=== PATIENT | male | born 1980 | race Caucasian/White ===

== ENCOUNTER 2020-11-03 09:15 | Outpatient (REF) | payer BC, SELFPAY | END 2020-11-03 09:16 | disposition home or self-care (01) | LOC: HO.LAB 09:15 | PROVIDERS: PCP Internal Medicine; Visit Provider Internal Medicine Pulmonary Disease | DX: T78.40XA Allergy, unspecified, initial encounter (principal); J47.9 Bronchiectasis, uncomplicated; R76.8 Other specified abnormal immunological findings in serum; Z87.891 Personal history of nicotine dependence | CPT/HCPCS: 82785; 86003 ==

== ENCOUNTER 2021-01-12 08:08 | Outpatient (REF) | payer BC, SELFPAY | END 2021-01-12 08:09 | disposition home or self-care (01) | LOC: HO.MDS 08:08 | PROVIDERS: PCP Internal Medicine; Visit Provider Internal Medicine Pulmonary Disease | DX: J45.901 Unspecified asthma with (acute) exacerbation (principal) | CPT/HCPCS: 96372; J2357 ==

== ENCOUNTER 2021-01-22 09:25 | Outpatient (REF) | payer BC, SELFPAY ==
--- NOTE | ~2021-01-22 | XR_ITS ---
EXAMINATION: XR CHEST CLINICAL INFORMATION: Pleurodynia COMPARISON: 08/12/2020 TECHNIQUE: 2 views of the chest were obtained. FINDINGS: Superimposed on chronic interstitial opacity, there is new more confluent airspace opacity in the left midlung and left lung base suspicious for acute disease. Nodular opacity in the right midlung was present previously. No pleural effusion or pneumothorax. Normal heart size. Regional skeleton intact. XR/XR chest 2V IMPRESSION: Superimposed on a background of chronic coarse interstitial opacity, there is new, more confluent airspace opacity in the left midlung and left lung base suspicious for acute disease.
[2021-01-22 10:46] LABS: MANUAL DIFF FLAG NO
[2021-01-22 10:58] LABS: Basophils Absolute Auto 0.1 X10*3/uL (0.0-0.2); Basophils Percent Auto 0.7 % (0-2); Eosinophils Absolute Auto 0.2 X10*3/uL (0.0-0.4); Eosinophils Percent Auto 0.9 % (0-4); Hematocrit 45.1 % (42-52); Hemoglobin 14.6 g/dl (14.0-18.0); Imm Gran Abs Auto 0.15 X10*3/uL (0.00-0.03); Imm Gran Pct Auto 0.8 % (0.0-0.4); Lymphocytes Absolute Auto 2.7 X10*3/uL (1.2-4.9); Lymphocytes Percent Auto 14.1 % (20-40); Mean Corpuscular HGB Conc 32.4 g/dl (31.0-36.0); Mean Corpuscular Hemoglobin 28.8 pg (27.0-33.0); Mean Platelet Volume 10.6 fL (9.4-12.4); Monocytes Absolute Auto 1.4 X10*3/uL (0.1-1.2); Monocytes Percent Auto 7.5 % (2-11); Neutrophils Absolute Auto 14.4 X10*3/uL (2.0-8.3); Platelet Count 370 X10*3/uL (160-400); Red Blood Count 5.07 X10*6/uL (4.60-5.80); Red Cell Distribution Width 15.6 % (11.0-16.0); White Blood Count 18.9 X10*3/uL (4.8-10.8)
[2021-01-22 11:23] LABS: Anion Gap 15 (12-20); Blood Urea Nitrogen 16 mg/dL (9-16); Calcium 9.7 mg/dL (8.4-10.2); Carbon Dioxide 28 mmol/L (22-29); Chloride 102 mmol/L (96-108); Estimated Glomerular Filt Rate > 60; Glucose Random 86 mg/dL (60-115); Potassium 4.8 mmol/L (3.3-5.1); Sodium 140 mmol/L (135-145)
[2021-01-22 11:39] LABS: SARS COV2 IgG Negative (Negative)
[2021-01-22 11:48] LABS: Erythrocyte Sedimentation Rate 34 MM/HR (0-15)
[2021-01-23 23:46] LABS: Immunoglobulin G Subclass 1 974 mg/dL (382-929); Immunoglobulin G Subclass 2 340 mg/dL (241-700); Immunoglobulin G Subclass 3 14 mg/dL (22-178); Immunoglobulin G Subclass 4 72.5 mg/dL (4-86); Immunoglobulin G Total 1692 mg/dL (600-1640)
== END 2021-01-22 09:26 | disposition home or self-care (01) ==
LOC: HO.LAB 09:25
PROVIDERS: PCP Internal Medicine; Visit Provider Hospitalist
DX: J47.0 Bronchiectasis with acute lower respiratory infection (principal); R76.8 Other specified abnormal immunological findings in serum; R07.81 Pleurodynia; Z20.822 Contact with and (suspected) exposure to COVID-19; Z88.8 Allergy status to other drugs, medicaments and biological substances; Z79.899 Other long term (current) drug therapy
CPT/HCPCS: 36415; 71046; 80048; 82784; 85025; 85652; 86769

== ENCOUNTER 2021-01-26 07:26 | Outpatient (REF) | payer BC, SELFPAY | END 2021-01-26 07:27 | disposition home or self-care (01) | LOC: HO.MDS 07:26 | PROVIDERS: PCP Internal Medicine; Visit Provider Internal Medicine Pulmonary Disease | DX: J45.901 Unspecified asthma with (acute) exacerbation (principal) | CPT/HCPCS: 96372; J2357 ==

== ENCOUNTER → 2021-02-02 08:46 | Outpatient (BNVA) | payer BC, SELFPAY | PROVIDERS: PCP Internal Medicine; Visit Provider Internal Medicine Pulmonary Disease ==

== ENCOUNTER 2021-06-02 15:22 | Emergency (ER) | payer MEDICARE, MEDICAID, SELFPAY ==
--- NOTE | ~2021-06-02 | XR_ITS ---
EXAMINATION: XR CHEST CLINICAL INFORMATION: Cough and shortness of breath. Bronchiectasis. Rule out pneumo COMPARISON: Chest x-ray January 22, 2021 TECHNIQUE: 2 views of the chest were obtained. FINDINGS: Cardiac silhouette is normal in size. New patchy airspace disease is present within the lateral right upper lung and medial left mid lung. This is superimposed on a background of chronic interstitial opacities. There is no pleural effusion or pneumothorax. No acute osseous abnormality. XR/XR chest 2V IMPRESSION: Suspected acute patchy airspace disease superimposed on chronic changes.
--- NOTE | ~2021-06-02 | CT_ITS ---
EXAMINATION: CT HEAD WITHOUT CONTRAST CLINICAL INFORMATION: Head injury. History of traumatic brain injury. Rule out fracture and bleed. COMPARISON: None TECHNIQUE: Contiguous axial imaging was performed from the skull base to vertex without intravenous administration of contrast. This CT examination was performed using dose optimization techniques as appropriate, variously including the following: *Automated exposure control *Adjustment of mA and/or kV according to patient size (this includes techniques or standardized protocols for targeted exams where dose is matched to indication/reason for exam; i.e. extremities or head) *Use of iterative reconstruction technique DLP: 833 mGy-cm FINDINGS: There is no evidence of acute intracranial hemorrhage or territorial infarction. No abnormal mass effect or midline shift is seen. [place] to white matter differentiation is well preserved. No extra-axial fluid collections are identified. The ventricles are normal in size. There is no abnormal attenuation within the brain parenchyma. No acute osseous fracture. Near-complete opacification of the left sphenoid sinus with only partial opacification of the left frontal sinus. Other visualized paranasal sinuses are well aerated. CT/CT head/brain wo con IMPRESSION: 1. No acute intracranial pathology. 2. Mild sinus disease.
[2021-06-02 15:26] VITALS: BP 155/99; PULSE 137; RESP 18; TEMP 36.7; O2SAT 91; BMI 25.5
--- NOTE | 2021-06-02 15:57 | PC.NURSE ---
patient refusing covid swab at this time
[2021-06-02 15:59] LABS: MANUAL DIFF FLAG NO
[2021-06-02 16:01] LABS: Basophils Absolute Auto 0.1 X10*3/uL (0.0-0.2); Basophils Percent Auto 0.6 % (0-2); Eosinophils Absolute Auto 0.1 X10*3/uL (0.0-0.4); Eosinophils Percent Auto 0.9 % (0-4); Hematocrit 42.3 % (42-52); Imm Gran Abs Auto 0.09 X10*3/uL (0.00-0.03); Imm Gran Pct Auto 0.6 % (0.0-0.4); Lymphocytes Absolute Auto 3.7 X10*3/uL (1.2-4.9); Lymphocytes Percent Auto 23.9 % (20-40); Mean Corpuscular HGB Conc 33.1 g/dl (31.0-36.0); Mean Corpuscular Hemoglobin 30.2 pg (27.0-33.0); Mean Corpuscular Volume 91.2 fL (80-98); Mean Platelet Volume 9.8 fL (9.4-12.4); Monocytes Absolute Auto 1.4 X10*3/uL (0.1-1.2); Monocytes Percent Auto 9.1 % (2-11); Neutrophils Absolute Auto 10.2 X10*3/uL (2.0-8.3); Neutrophils Percent Auto 64.9 % (45-73); Platelet Count 239 X10*3/uL (160-400); Red Blood Count 4.64 X10*6/uL (4.60-5.80); Red Cell Distribution Width 18.2 % (11.0-16.0); White Blood Count 15.7 X10*3/uL (4.8-10.8)
--- NOTE | 2021-06-02 16:14 | ECG_ITS ---
Test Reason : SHORT OF BREATH Blood Pressure : / mmHG Vent. Rate : 118 BPM Atrial Rate : 118 BPM P-R Int : 130 ms QRS Dur : 080 ms QT Int : 310 ms P-R-T Axes : 066 076 040 degrees QTc Int : 434 ms Sinus tachycardia Otherwise normal ECG When compared with ECG of 27-JUN-2020 20:34, No significant change was found Referred By: Minh Leggett Electronically Signed By:KASI ROE MD
[2021-06-02] MEDS: 0.9 % Sodium Chloride 1,000 ML 999 ML IV (16:21)
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
[2021-06-02 16:28] LABS: Anion Gap 16 (12-20); Blood Urea Nitrogen 12 mg/dL (9-16); Calcium 8.3 mg/dL (8.4-10.2); Carbon Dioxide 25 mmol/L (22-29); Chloride 106 mmol/L (96-108); Creatinine Clr Calc Pharmacy 104.3; Estimated Glomerular Filt Rate > 60; Ethanol 432 mg/dL; Glucose Random 116 mg/dL (60-115); Potassium 3.9 mmol/L (3.3-5.1); Sodium 143 mmol/L (135-145)
[2021-06-02 16:35] VITALS: BP 158/102; PULSE 121; RESP 24; TEMP 36.9; O2SAT 92
[2021-06-02 16:37] LABS: Alanine Aminotransferase 60 U/L (0-40); Albumin Level 3.4 g/dL (3.5-5.0); Alkaline Phosphatase 150 U/L (39-117); Aspartate Amino Transferase 72 U/L (5-37); Bilirubin Direct < 0.2 mg/dL (0.0-0.5); Bilirubin Total 0.3 mg/dL (0.0-1.0); Total Protein 7.8 g/dL (6.5-8.0); Troponin-I High Sensitivity < 3.5 ng/L (<3.5-35.0)
[2021-06-02 16:38] VITALS: O2SAT 92
[2021-06-02] MEDS: levoFLOXacin/D5W 750 MG/150 ML PIGGYBACK 100 MG IV (17:06)
[2021-06-02] MEDS: Azithromycin 500 MG TABLET PO (17:40)
[2021-06-02] MEDS: predniSONE 20 MG TABLET 60 MG PO (17:40)
[2021-06-02 17:43] LABS: B Type Natriuretic Peptide < 10 pg/mL (<100)
[2021-06-02 17:54] LABS: Prothrombin Time 11.7 SEC (9.9-13.0)
[2021-06-02 17:56] LABS: Partial Thromboplastin Time 44.3 SEC (24.1-38.0)
== END 2021-06-02 18:18 | disposition home or self-care (01) ==
PROVIDERS: Emergency Provider Emergency Medicine Emergency Medical Services
DX: J18.9 Pneumonia, unspecified organism (principal); F10.120 Alcohol abuse with intoxication, uncomplicated; Y90.8 Blood alcohol level of 240 mg/100 ml or more; S09.90XA Unspecified injury of head, initial encounter; I10 Essential (primary) hypertension; F17.210 Nicotine dependence, cigarettes, uncomplicated; W18.30XA Fall on same level, unspecified, initial encounter; Y93.9 Activity, unspecified; Y92.9 Unspecified place or not applicable; Y99.9 Unspecified external cause status
CPT/HCPCS: 36415; 70450; 71046; 80048; 80076; 82077; 83605; 83880; 84484; 85025; 85610; 85730; 87040; 93005; 96361; 96365; 99284; J1956

== ENCOUNTER 2021-06-12 16:30 | Inpatient (IN) | payer MEDICARE, MEDICAID, SELFPAY ==
[2021-06-12] VITALS (10 sets, daily range): BP systolic 122–138; BP diastolic 76–88; PULSE 131–152; RESP 22–26; TEMP 36.7–37.2; O2SAT 87–94; BMI 25.8
--- NOTE | ~2021-06-12 | XR_ITS ---
EXAMINATION: XR CHEST CLINICAL INFORMATION: Post intubation COMPARISON: 06/12/2021 TECHNIQUE: Frontal view of the chest was obtained. FINDINGS: Endotracheal tube tip lies approximately 5.5 cm above the alvarez. Lung volumes are symmetric. There is redemonstration of diffuse bronchiectasis and a few scattered patchy superimposed consolidations, similar to prior. No evidence of pneumothorax or pleural effusion. The cardiomediastinal contour is unremarkable. No acute osseous findings are seen. XR/XR chest 1V IMPRESSION: Endotracheal tube tip 5.5 cm above the alvarez. Redemonstration of diffuse bronchiectasis and a few scattered patchy superimposed consolidations, similar to prior.
--- NOTE | ~2021-06-12 | XR_ITS ---
EXAMINATION: XR CHEST CLINICAL INFORMATION: ET tube placement COMPARISON: Chest 06/13/2021 TECHNIQUE: Frontal view of the chest was obtained. FINDINGS: The endotracheal tube is 4.7 cm above the alvarez. Both lungs are well-expanded with diffuse patchy reticular interstitial changes likely consolidation. There is mild bronchiectasis seen bilaterally. No pneumothorax or pleural effusion suspected. The cardiomediastinal silhouette is within normal limits. New enteric tube is below diaphragm XR/XR chest 1V IMPRESSION: New enteric tube is below the diaphragm. No change in endotracheal tube, scattered bronchiectasis in both lungs and scattered patchy reticular and parenchymal opacities throughout both lungs.
--- NOTE | ~2021-06-12 | XR_ITS ---
EXAMINATION: XR CHEST CLINICAL INFORMATION: Aspiration pneumonia. COMPARISON: None TECHNIQUE: Frontal view of the chest was obtained. FINDINGS: The lungs are well-expanded with increased bilateral upper mid and lower lobe patchy opacities with peribronchial wall thickening and bronchiectasis suggestive of bronchitis or bronchial airway disease. There are patchy opacities in the right upper lobe and left upper lobe suprahilar regions likely infiltrates. There is no pleural effusion. The heart size and hypervascularity is normal. No gross bony abnormality.. XR/XR chest 1V IMPRESSION: Findings suggestive of bronchiectasis and bronchial airway disease, slowly improved since 06/02/2021 exam. There is residual patchy opacities in the right upper lung and left upper lobe suprahilar region. There is no pleural effusion.
--- NOTE | ~2021-06-12 | XR_ITS ---
EXAMINATION: XR CHEST CLINICAL INFORMATION: Hypoxia COMPARISON: None TECHNIQUE: Frontal view of the chest was obtained. FINDINGS: The lungs are well-expanded with patchy reticular interstitial opacities in both lungs similar to previous studies 06/13/2021. There is mild bronchiectasis and cystic changes as well. The endotracheal tube and enteric tube have been removed. The heart size and pulmonary vascularity is normal. No gross bony abnormality seen. XR/XR chest 1V IMPRESSION: Endotracheal tube and enteric tube have been removed. Patchy reticular interstitial opacities in both lungs are stable.
--- NOTE | ~2021-06-12 | XR_ITS ---
EXAMINATION: XR CHEST, 2 VIEWS CLINICAL INFORMATION: Chest pain. Rule out pneumonia. COMPARISON: 06/02/2021 TECHNIQUE: PA and lateral views of the chest were obtained. FINDINGS: Patchy multifocal airspace consolidation is again seen in both lungs, most notably in the perihilar regions, superimposed upon a background of bronchiectasis. Airspace opacities are not appreciably changed as compared to prior. No new airspace disease. No pneumothorax or pleural effusion. Cardiac and mediastinal contours are unchanged. XR/XR chest 2V IMPRESSION: Chronic bilateral bronchiectasis and coarsened lung markings. Superimposed airspace opacities are not significantly changed from the prior study.
--- NOTE | ~2021-06-12 | CT_ITS ---
EXAMINATION: CT ANGIOGRAM OF THE CHEST WITH AND WITHOUT CONTRAST (CT PULMONARY ANGIOGRAM FOR PE) CLINICAL INFORMATION: Reason for Exam tachycardia, hypoxia, elevated d-dimer, to eval for PE COMPARISON: 06/30/2020 TECHNIQUE: Prior to contrast administration, noncontrast localization images were obtained. Subsequently, multidetector volumetric imaging was performed from the thoracic inlet to below the diaphragms following the administration of 80 mL Omnipaque 350 intravenous contrast. No contrast reaction reported Sagittal, coronal, and MIP oblique sagittal reformatted images were obtained on the CT workstation, uploaded to PACS, and reviewed. This CT examination was performed using dose optimization techniques as appropriate, variously including the following: *Automated exposure control *Adjustment of mA and/or kV according to patient size (this includes techniques or standardized protocols for targeted exams where dose is matched to indication/reason for exam; i.e. extremities or head) *Use of iterative reconstruction technique Total exam dose-length product 229 mGy-cm FINDINGS: QUALITY OF STUDY/CONTRAST BOLUS: Satisfactory. PULMONARY ARTERIES: No central or segmental pulmonary emboli. THORACIC AORTA: No aneurysm or dissection. LUNG: Severe diffuse cylindrical bronchiectasis diffusely bilaterally. Overall the extent of parenchymal disease is progressive. Masslike irregular parenchymal disease also progressive minimal focal irregular abnormality superior segment of the left lower lobe. No definite cavitation or calcifications. PLEURA: No pleural effusion or pneumothorax. MEDIASTINUM: Normal heart size. No pericardial effusion. Mild progression of bulky lymph nodes largest anterior mediastinum measuring up to 3.5 x 1.1 cm transaxially. Bilateral hilar adenopathy similar mildly progressive. Bulky lymph node azygos esophageal recess is slightly progressive. This now measures up to 2 x 1.6 cm. No evidence of septal bowing or right heart strain. Thoracic aorta normal. CHEST WALL/AXILLA: No axillary or internal mammary lymphadenopathy. OSSEOUS STRUCTURES: No acute or suspicious osseous abnormality. UPPER ABDOMEN: Unremarkable. No reflux of contrast into the hepatic veins to suggest elevated right heart pressures. CT/CT angio chest PE protocol IMPRESSION: 1. No evidence for any acute or chronic pulmonary embolism. 2. Overall progression of bronchial and parenchymal disease. Progression of diffuse pathologic lymphadenopathy. Differential diagnosis includes infectious or inflammatory processes including atypical infection such as allergic bronchopulmonary aspergillosis. Correlate clinically with any history of cystic fibrosis. Differential diagnosis also includes potentially lymphoma and granulomatous disease. VTE: negative
--- NOTE | 2021-06-12 18:00 | ECG_ITS ---
Test Reason : SOB Blood Pressure : / mmHG Vent. Rate : 139 BPM Atrial Rate : 139 BPM P-R Int : 118 ms QRS Dur : 070 ms QT Int : 292 ms P-R-T Axes : 070 083 064 degrees QTc Int : 444 ms Sinus tachycardia Otherwise normal ECG When compared with ECG of 02-JUN-2021 16:43, No significant change was found Referred By: Minh Leggett Electronically Signed By:Dylon Looney
[2021-06-12] MEDS: LORazepam 2 MG/ML VIAL IVPUSH (18:16)
[2021-06-12] MEDS: 0.9 % Sodium Chloride 1,000 ML 999 ML IV ×2 (18:17→20:00)
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
[2021-06-12 18:29] LABS: MANUAL DIFF FLAG NO
[2021-06-12 18:47] LABS: Basophils Absolute Auto 0.1 X10*3/uL (0.0-0.2); Basophils Percent Auto 0.7 % (0-2); Eosinophils Absolute Auto 0.1 X10*3/uL (0.0-0.4); Eosinophils Percent Auto 0.5 % (0-4); Hematocrit 41.1 % (42-52); Hemoglobin 13.5 g/dl (14.0-18.0); Imm Gran Abs Auto 0.14 X10*3/uL (0.00-0.03); Imm Gran Pct Auto 0.9 % (0.0-0.4); Lymphocytes Absolute Auto 1.8 X10*3/uL (1.2-4.9); Lymphocytes Percent Auto 11.8 % (20-40); Mean Corpuscular HGB Conc 32.8 g/dl (31.0-36.0); Mean Corpuscular Hemoglobin 30.1 pg (27.0-33.0); Mean Corpuscular Volume 91.5 fL (80-98); Mean Platelet Volume 10.3 fL (9.4-12.4); Monocytes Absolute Auto 1.3 X10*3/uL (0.1-1.2); Monocytes Percent Auto 8.6 % (2-11); Neutrophils Absolute Auto 11.8 X10*3/uL (2.0-8.3); Neutrophils Percent Auto 77.5 % (45-73); Platelet Count 187 X10*3/uL (160-400); Red Blood Count 4.49 X10*6/uL (4.60-5.80); Red Cell Distribution Width 19.1 % (11.0-16.0); White Blood Count 15.2 X10*3/uL (4.8-10.8)
[2021-06-12 18:58] LABS: Ethanol 248 mg/dL
[2021-06-12 18:59] LABS: Alanine Aminotransferase 64 U/L (0-40); Albumin Level 3.7 g/dL (3.5-5.0); Alkaline Phosphatase 128 U/L (39-117); Anion Gap 19 (12-20); Aspartate Amino Transferase 89 U/L (5-37); Bilirubin Total 0.4 mg/dL (0.0-1.0); Blood Urea Nitrogen 17 mg/dL (9-16); Calcium 8.4 mg/dL (8.4-10.2); Carbon Dioxide 26 mmol/L (22-29); Chloride 101 mmol/L (96-108); Creatinine Clr Calc Pharmacy 111.7; Estimated Glomerular Filt Rate > 60; Glucose Random 113 mg/dL (60-115); Lipase 55 U/L (8-78); Potassium 3.8 mmol/L (3.3-5.1); Sodium 142 mmol/L (135-145); Total Protein 7.7 g/dL (6.5-8.0)
[2021-06-12] MEDS: Albuterol Sulfate 90 MCG 8 GM INHALER 6 PUFF INHALE (18:59)
[2021-06-12 19:20] LABS: COVID-19 Test Negative (Negative); IDNOW Serial# 9DD0AD1C
[2021-06-12] MEDS: Albuterol/Iprat 2.5/0.5MG 3 ML AMPUL.NEB INHALE (19:37)
[2021-06-12] MEDS: PHENobarbitaL sodium 130 MG/ML VIAL 410 MG IM (20:07)
--- NOTE | 2021-06-12 20:23 | PHA.MEDREC ---
Pharmacy Consult ? Medication Reconciliation Pharmacy has completed the medication reconciliation. PT no longer on xolair or breo/not covered by ins
--- NOTE | 2021-06-12 20:59 | PC.NURSE ---
pt heart rate still in 140's, pt also keeps desatting to 85% on 3L NC. pt remains asymptomatic and not complaining of feeling short of breath hospitalist notified
--- NOTE | 2021-06-12 21:03 | PC.NURSE ---
pt 02 NC increased to 4L pt 02 sat now 94% on 4L NC
--- NOTE | 2021-06-12 21:28 | MHC.RECOVSUP ---
Recovery Support o Current location: 15 o Identified substance use concern: Alcohol <del>-</del> <del>Overdose</del> - Withdrawal - Seeking ATS (detox) - Support ? Intervention: <del>o</del> <del>ATS</del> <del>bed</del> <del>search</del> <del>started/completed/in</del> <del>process</del> <del>o</del> <del>MAT</del> <del>started</del> <del>or</del> <del>to</del> <del>be</del> <del>started</del> o Community resources provided o Harm reduction discussion ? Plan: o Referral to [facility] <del>o</del> <del>Bed</del> <del>search</del> <del>in</del> <del>progress</del> <del>to</del> o Follow up tomorrow <del>o</del> <del>Patient</del> <del>awaiting</del> <del>crisis</del> <del>evaluation</del> <del>o</del> <del>Patient</del> <del>to</del> <del>follow</del> <del>up</del> <del>with</del> <del>HF</del> <del>after</del> <del>discharge</del> ? Additional information: I was able to briefly speak with pt and he was interested in going to detox but he is being admitted. I was able to provide him with some resources and also spoke to him about Vivitrol and [facility]. he should interest in it and I suggested and encouraged him to speak with someone tomorrow about Vivitrol.
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
[2021-06-12] MEDS: hydrOXYzine HCL 25 MG TABLET PO (21:41)
[2021-06-12] MEDS: PHENobarbitaL sodium 130 MG/ML VIAL 308 MG IM (22:58)
[2021-06-13] VITALS (47 sets, daily range): BP systolic 91–178; BP diastolic 48–113; PULSE 83–148; RESP 16–34; TEMP 36.5–38.3; O2SAT 90–100; BMI 27.4
[2021-06-13 00:07] LABS: Amphetamine Screen Urine Not Detected (Not Detect); Barbiturates, Urine POSITIVE (Not Detect); Benzodiazepines Screen Urine Not Detected (Not Detect); Cannabinoid Screen Urine Not Detected (Not Detect); Cocaine Screen Urine Not Detected (Not Detect); Opiate Screen Urine Not Detected (Not Detect); Phencyclidine Screen Urine Not Detected (Not Detect)
[2021-06-13] MEDS: Lactated Ringers 1,000 ML 100 ML IVCONT (00:33)
[2021-06-13] MEDS: Metoprolol Tartrate 5 MG/5 ML VIAL IVPUSH (00:33)
[2021-06-13] MEDS: ondansetron HCL 4 MG/2 ML VIAL IVPUSH (00:36)
--- NOTE | 2021-06-13 00:43 | PC.NURSE ---
Pt found ambulating to the bathroom independently. Upon return from the bathroom, pt's HR noted to be 184 bpm. Pt extremely anxious, agitated, diaphoretic, tremulous and vomiting. CIWA score noted to be 25, pt denies auditory/visual hallucinations at this time. Hospitalist notified of pt condition and CIWA. Pt provided with cool wet towels, seizure pads applied to bed. This RN contacting Akhil over the phone, verbal orders for Lopressor 5 mg IV, Zofran 4 mg IV, and LR @ 100 ml/hr. Pt medicated per orders. Orders also noted for Ativan 1 mg IVP. This RN confirming with hospitalist as pt is on the Phenobarb protocol. Hospitalist confirming order despite Phenobarb protocol. Pt medicated with Ativan per JAN. IV established. Great improvement in pt condition noted after administration of medications. HR decreasing to 118 bpm, BP 144/87. Hospitalist aware. RA O2 SAT 88%, on 4 lpm of O2, sat increasing to 92%. Plan to continue with Phenobarb protocol and consider ICU admission/transfer if s/sx and CIWA do not improve.
[2021-06-13] MEDS: LORazepam 2 MG/ML VIAL 1 MG IVPUSH (00:44)
--- NOTE | 2021-06-13 01:46 | PC.NURSE ---
This RN resuming care of pt at this time.
[2021-06-13] MEDS: PHENobarbitaL sodium 130 MG/ML VIAL 308 MG IM (01:57)
--- NOTE | 2021-06-13 02:01 | PC.NURSE ---
Pt medicated with 0200 Phenobarb.
[2021-06-13] MEDS: Heparin Sodium,Porcine 5,000 UNIT/ML VIAL 5000 UNIT SUBCUT ×3 (02:09→21:32)
[2021-06-13] MEDS: Haloperidol Lactate 5 MG/ML VIAL 2 MG IVPUSH (02:51)
--- NOTE | 2021-06-13 02:55 | PC.NURSE ---
Pt refusing to stay in bed, HR elevated @ 140 bpm. Pt diaphoretic and anxious. Hospital contacted regarding current mental status. Verbal order from MD for Haldol 2 mg IVP. Pharmacy taking a significant amount of time to verify medication. Pt medicated per verbal order due to AMS despite medication being unverified.
[2021-06-13] MEDS: diphenhydrAMINE HCL 50 MG/ML VIAL IVPUSH (03:14)
--- NOTE | 2021-06-13 03:37 | PC.NURSE ---
Pt medicated with Benadryl. Pt remains increasingly confused and agitated at this time. Plan to consult [facility] due to AMS.
[2021-06-13] MEDS: PHENobarbitaL sodium 130 MG/ML VIAL IM (04:05)
--- NOTE | 2021-06-13 04:09 | PC.NURSE ---
Pt medicated with an additional dose of Phenobarb per JAN due to elevated CIWA scores and persistent agitation, disorientation and tachycardia. Plan to transfer pt out for ICU level care.
--- NOTE | 2021-06-13 04:16 | PC.NURSE ---
Pt sleeping in bed at this time in NAD.
--- NOTE | 2021-06-13 04:42 | PM.IMHP ---
History of Present Illness Date of Service: 06/12/21 Chief Complaint: Alcohol withdrawal This is a 40-year-old male with no significant past medical history except alcohol abuse who presents to the hospital stating that he wants detox for alcohol and that he is in alcohol withdrawal. Patient drinks about 30-40 shots of whiskey daily, his last drink was this a.m.. He experienced alcohol withdrawal seizure last night after the alcohol store closed and he did not get a chance to by alcohol in time. He eventually was able to buy some this morning and his last drink was this a.m.Patient reports nausea, vomiting, no headache, no change in vision, no chest pain, he is tremulous, complaining of visual hallucinations. Patient has no urinary symptoms and no lower extremity edema. Of note patient was seen in the hospital on 06/02 and diagnosed with pneumonia at that time and started on antibiotics, patient compliant with his levofloxacin and has 2 more days left on that. He denies any cough, no shortness of breath at this time. On arrival to the ED patient hemodynamically stable with vital signs significant for heart rate of 135, respiratory rate of 24, blood pressure 129/87, satting 88% on room air. Lab significant for WBC count of 15.2, hemoglobin of 13.5, alcohol level of to 248. Labs otherwise on remarkable Patient received multiple rounds of Ativan, started on high dose of phenobarb but continues to be agitated, tachycardic, hypertensive, with so score above 16. Patient received an extra dose of Ativan, Haldol as well as Benadryl with continuous elevated CIWA score tachycardia and agitation. Patient was initially admitted to our service foot will be transferred to ICU due to severe alcohol withdrawal Review of Systems Review of Systems: Yes all other systems are reviewed and are negative [facility] Medical History Lung disease Pleuritic chest pain Social History Alcohol intake: current Alcohol type: hard liquor Patient Tobacco Use Status: Current everyday Tobacco user Years Smoked: 19 yrs Advance Directives: No Advance Directives Information Provided: Yes service: No Current occupational status: unemployed Meds Allergies Allergy/AdvReac Type Severity Reaction Status Date / Time clonazepam [CLONAZEPAM] Allergy Severe ERRATIC Verified 06/02/21 15:26 BEHAVIOR, AND RAGE. Active Medications: Current Medications Generic Name Dose Route Start Last Admin Trade Name Freq PRN Reason Stop Dose Admin Acetaminophen 650 mg 06/13/21 01:50 Acetaminophen 325 Mg Tablet PO Q6H PRN Pain, Mild (Pain Scale 1-3) Albuterol Sulfate 2 puff 06/13/21 01:50 Albuterol Sulfate 90 Mcg 8 Gm Inhaler INHALE Q4H PRN wheezing Albuterol/Ipratropium 3 ml 06/13/21 01:50 Albuterol/Iprat 2.5/0.5mg 3 Ml Ampul.Neb INHALE TID PRN Shortness Of Breath Docusate Sodium 100 mg 06/13/21 01:50 Docusate Sodium 100 Mg Capsule PO DAILY PRN Constipation Folic Acid 1 mg 06/13/21 09:00 Folic Acid 1 Mg Tablet PO DAILY MANDY Heparin Sodium (Porcine) 5,000 unit 06/13/21 01:50 06/13/21 02:09 Heparin Sodium,Porcine 5,000 Unit/Ml Vial SUBCUT 5,000 unit BID MANDY Administration Hydroxyzine HCl 25 mg 06/12/21 21:26 06/12/21 21:41 Hydroxyzine Hcl 25 Mg Tablet PO 25 mg Q6H PRN Administration anxiety/restlessness Lactated Ringer's 1,000 mls @ 100 mls/hr 06/13/21 00:30 06/13/21 00:33 Lr IVCONT 100 mls/hr .Q10H MANDY Administration Dexmedetomidine HCl 400 mcg in 100 mls @ 0 mls/hr 06/13/21 04:45 Precedex IVCONT .Q0M [facility] [place] Protocol Per Protocol Levofloxacin 750 mg 06/13/21 09:00 Levofloxacin 750 Mg Tablet PO 06/14/21 23:59 DAILY [facility] Medication 1 each 06/12/21 20:00 No Benzodiazepines MISCELLANE DAILY [facility] Ondansetron HCl 4 mg 06/13/21 01:50 Ondansetron Hcl 4 Mg/2 Ml Vial IVPUSH Q8H PRN Nausea and Vomiting Pharmacy Consult 1 each 06/12/21 19:44 Consult Rx Perform Med Rec MISCELLANE ONCE PRN Consult order Phenobarbital 45 mg 06/13/21 09:00 Phenobarbital 15 Mg Tablet PO 06/14/21 21:01 BID MANDY Phenobarbital 15 mg 06/15/21 09:00 Phenobarbital 15 Mg Tablet PO 06/16/21 21:01 BID [facility] Phenobarbital 15 mg 06/17/21 09:00 Phenobarbital 15 Mg Tablet PO 06/18/21 09:01 DAILY [facility] Thiamine HCl 100 mg 06/13/21 09:00 Thiamine Hcl 100 Mg Tablet PO DAILY [facility] Home Medications Medication Instructions Recorded Confirmed Last Taken Type albuterol sulfate 90 mcg/actuation 2 puff INHALATION Q4H PRN 11/03/20 06/12/21 Unknown History aerosol inhaler ipratropium 0.5 mg-albuterol 3 mg 3 ml INHALATION TID PRN 11/03/20 06/12/21 Unknown History (2.5 mg base)/3 mL nebulization soln Physical Exam Vital Signs and Narrative: Vital Signs: Last Vital Signs Temp 99 F 06/13/21 01:49 Pulse 122 H 06/13/21 04:35 Resp 28 H 06/13/21 04:35 BP 147/72 H 06/13/21 04:35 Pulse Ox 96 06/13/21 04:35 Body Mass Index 25.8 Const: Other: On initial presentation patient alert and oriented to self place and time but over the course of ED stay patient became more delirious, now he is having visual and auditory hallucinations. General: ill appearing Eyes: General: appearance normal, both eyes and all related structures Resp: Effort & Inspection: normal respiratory effort Cardio: Rate: regular rate Rhythm: regular rhythm GI: Palpation (GI): Soft to palpation Auscultation: normal bowel sounds Skin: General skin exam: no rashes or lesions noted Neuro: Cognition (Neuro): normal cognition Extrem: General: Yes normal to inspection and Yes no pedal edema Results Labs CBC and Chem 7: 06/12/21 18:24 06/12/21 18:24 Labs: Laboratory Results - last 24 hr 06/12/21 06/12/21 06/12/21 18:24 18:24 18:24 MCV 91.5 MCH 30.1 MCHC 32.8 RDW 19.1 H Plt Count 187 MPV 10.3 Immature Gran % (Auto) 0.9 H Neut % (Auto) 77.5 H Lymph % (Auto) 11.8 L [place] % (Auto) 8.6 Eos % (Auto) 0.5 Baso % (Auto) 0.7 Lymph # (Auto) 1.8 [place] # (Auto) 1.3 H Eos # (Auto) 0.1 Baso # (Auto) 0.1 Abs Immat Gran (auto) 0.14 H Absolute Neuts (auto) 11.8 H Absolute Nucleated RBC 0.000 Nucleated RBC % (auto) 0.0 Anion Gap 19 Estim Creat Clear Calc 111.7 Estimated GFR > 60 Random Glucose 113 Calcium 8.4 Total Bilirubin 0.4 AST 89 H ALT 64 H Alkaline Phosphatase 128 H Total Protein 7.7 Albumin 3.7 Lipase 55 Urine Opiates Screen Ur Barbiturates Screen Ur Phencyclidine Scrn Ur Amphetamines Screen U Benzodiazepines Scrn Urine Cocaine Screen U Marijuana (THC) Screen Ethyl Alcohol 248 COVID-19 (JESSIKA) COVID-19 [employer] Com 06/12/21 06/12/21 18:43 23:46 MCV MCH MCHC RDW Plt Count MPV Immature Gran % (Auto) Neut % (Auto) Lymph % (Auto) [place] % (Auto) Eos % (Auto) Baso % (Auto) Lymph # (Auto) [place] # (Auto) Eos # (Auto) Baso # (Auto) Abs Immat Gran (auto) Absolute Neuts (auto) Absolute Nucleated RBC Nucleated RBC % (auto) Anion Gap Estim Creat Clear Calc Estimated GFR Random Glucose Calcium Total Bilirubin AST ALT Alkaline Phosphatase Total Protein Albumin Lipase Urine Opiates Screen Not Detected Ur Barbiturates Screen POSITIVE H Ur Phencyclidine Scrn Not Detected Ur Amphetamines Screen Not Detected U Benzodiazepines Scrn Not Detected Urine Cocaine Screen Not Detected U Marijuana (THC) Screen Not Detected Ethyl Alcohol COVID-19 (JESSIKA) Negative COVID-19 Clin Com See Note Imaging Radiologist's Impressions: Impressions Chest X-Ray 06/12/21 18:27 IMPRESSION: Chronic bilateral bronchiectasis and coarsened lung markings. Superimposed airspace opacities are not significantly changed from the prior study. Assessment and Plan (1) Alcohol abuse with withdrawal: Status: Acute (2) Alcohol withdrawal seizure: Status: Acute This is a 40-year-old male with past medical history of alcohol abuse who presents to the hospital with complaints of alcohol withdrawal Patient drinks about 40 nebs of hard liquor daily. # alcohol abuse with severe alcohol withdrawal - CIWA on [facility] presentation was around 27 due to agitation, hallucinations, tachycardia, tachypnea, as well as elevated blood pressure - patient received multiple doses of Ativan, Haldol, Benadryl, as well as high dose of 15 milligram/kg of phenobarb with continuous elevation of his CIWA score due to tachycardia and tachypnea as well as agitation - patient will be placed on Precedex drip and transfer to ICU # alcohol withdrawal seizure at home - at this time he has not had a recurrence - will monitor # community-acquired pneumonia - resolution of symptoms - on levofloxacin with 2 days left of course - will continue levofloxacin DVT prophylaxis: Heparin subQ Quality Stroke Does the patient have a stroke diagnosis?: No VTE Prior VTE?: No VTE Risk Level:: Medical - moderate - high VTE Device Contraindication: Treatment Not Indicated VTE Drug Contraindication: N/A - Med Ordered
--- NOTE | 2021-06-13 04:59 | PC.NURSE ---
Plan for Precedex and rectal Tylenol at this time.
[2021-06-13] MEDS: dexmedeTOMIDidine HCL/NS 400 MCG/100 ML INFUS..BTL 19.28 MCG IVCONT ×2 (05:05→13:24)
[2021-06-13] MEDS: Acetaminophen Supp 650 MG SUPP.RECT PR (05:06)
--- NOTE | 2021-06-13 05:14 | PC.NURSE ---
Pt medicated with rectal Tylenol and Precedex per JAN.
--- NOTE | 2021-06-13 05:20 | PM.CCPN ---
Subjective Subjective Date of Service: 06/13/21 Interval History: This is a 40-year-old male with no significant past medical history except for EtOH abuse who presented to the emergency room or night requesting detox for alcohol. Initially admitted into hospital medicine service, see H&P for today. Since arrival to emergency department, patient has received multiple rounds of Ativan, started on high dose of phenobarb, as well as , Haldol and Benadryl but continued to be agitated, tachycardic, hypertensive, with elevated CIWA scores. Requiring Precedex drip. Will be admitted into the ICU for management of the severe alcohol withdrawal syndrome requiring Precedex drip Critical Care Time (minutes): 60 Physical Exam Vital Signs: Vital Signs: Last Vital Signs Temp 100.9 F H 06/13/21 04:58 Pulse 130 H 06/13/21 05:14 Resp 28 H 06/13/21 05:14 BP 147/72 H 06/13/21 04:35 Pulse Ox 96 06/13/21 05:18 Body Mass Index 27.4 Const: General: anxious, combative, confusion, diaphoretic and poor hygiene Orientation/consciousness: confusion Eyes: Pupils: Equal, round and reactive pupils present Neck: Neck: Yes supple and Yes no JVD Resp: Other: Tachypnea Auscultation: clear to auscultation bilaterally Cardio: Jugular venous distension: no JVD Rate: tachycardic Peripheral pulses: Peripheral pulses 2+ throughout GI: Palpation (GI): Soft to palpation Skin: General skin exam: dry skin Neuro: General: confusion Cranial nerves: Yes Equal, round and reactive pupils present Speech: Other speech findings present (Neuro) (Gargle) Motor exam (neuro): 5/5 motor strength present throughout Extrem: General: Yes capillary refill normal and No edema Objective Data Labs CBC & Chem 7: 06/12/21 18:24 06/12/21 18:24 Labs: Laboratory Results - last 24 hr 06/12/21 06/12/21 06/12/21 18:24 18:24 18:24 WBC 15.2 H RBC 4.49 L Hgb 13.5 L Hct 41.1 L MCV 91.5 MCH 30.1 MCHC 32.8 RDW 19.1 H Plt Count 187 MPV 10.3 Immature Gran % (Auto) 0.9 H Neut % (Auto) 77.5 H Lymph % (Auto) 11.8 L [place] % (Auto) 8.6 Eos % (Auto) 0.5 Baso % (Auto) 0.7 Lymph # (Auto) 1.8 [place] # (Auto) 1.3 H Eos # (Auto) 0.1 Baso # (Auto) 0.1 Abs Immat Gran (auto) 0.14 H Absolute Neuts (auto) 11.8 H Absolute Nucleated RBC 0.000 Nucleated RBC % (auto) 0.0 Sodium 142 Potassium 3.8 Chloride 101 Carbon Dioxide 26 Anion Gap 19 BUN 17 H Creatinine 0.85 Estim Creat Clear Calc 111.7 Estimated GFR > 60 Random Glucose 113 Calcium 8.4 Total Bilirubin 0.4 AST 89 H ALT 64 H Alkaline Phosphatase 128 H Total Protein 7.7 Albumin 3.7 Lipase 55 Urine Opiates Screen Ur Barbiturates Screen Ur Phencyclidine Scrn Ur Amphetamines Screen U Benzodiazepines Scrn Urine Cocaine Screen U Marijuana (THC) Screen Ethyl Alcohol 248 COVID-19 (JESSIKA) COVID-19 [employer] 06/12/21 06/12/21 18:43 23:46 WBC RBC Hgb Hct MCV MCH MCHC RDW Plt Count MPV Immature Gran % (Auto) Neut % (Auto) Lymph % (Auto) [place] % (Auto) Eos % (Auto) Baso % (Auto) Lymph # (Auto) [place] # (Auto) Eos # (Auto) Baso # (Auto) Abs Immat Gran (auto) Absolute Neuts (auto) Absolute Nucleated RBC Nucleated RBC % (auto) Sodium Potassium Chloride Carbon Dioxide Anion Gap BUN Creatinine Estim Creat Clear Calc Estimated GFR Random Glucose Calcium Total Bilirubin AST ALT Alkaline Phosphatase Total Protein Albumin Lipase Urine Opiates Screen Not Detected Ur Barbiturates Screen POSITIVE H Ur Phencyclidine Scrn Not Detected Ur Amphetamines Screen Not Detected U Benzodiazepines Scrn Not Detected Urine Cocaine Screen Not Detected U Marijuana (THC) Screen Not Detected Ethyl Alcohol COVID-19 (JESSIKA) Negative COVID-19 [employer] See Note Progress Note: A&P Assessment and plan (1) Alcohol withdrawal seizure: Status: Acute Assessment and Plan: 40-year-old male with past medical history of alcohol abuse who presents to the hospital with complaints of alcohol withdrawal Neuro: ? seizure at home: No evidence of seizures since arrival to the hospital. We will continue to monitor. Seizure precautions Hallucinations/ agitation hallucinations/agitation: Likely improve after management of severe alcohol withdrawal in Cardiac: Tachycardia: From ETOH withdrawal. Pulmonary: Pneumonia: Patient with community-acquired pneumonia, started on Levaquin in the emergency room. Continue Levaquin No acute issues Renal: No acute issues Endo: No acute issues. GI: Elevated LFTs: due to alcohol abuse. Cont monitor lfts Heme/Onc: No acute issues ID: pneumonia. Cont abx Psych: Severe alcohol withdrawal syndrome, he admits to drinking Patient drinks about +40 nips of hard liquor daily. Received multiple doses of Ativan, phenobarb, Haldol and Benadryl but required precede drip for management of severe alcohol withdrawal syndrome. Continue to monitor for worsening symptoms. Miscellaneous: Prophylaxis: Heparin, CODE: FULL Critical care time: x 60 min (2) Bronchiectasis: Status: Acute (3) Elevated LFTs: Status: Acute Quality Stroke Does the patient have a stroke diagnosis?: No VTE Prior VTE?: No VTE Risk Level:: Medical - moderate - high VTE Device Contraindication: Treatment Not Indicated VTE Drug Contraindication: N/A - Med Ordered Critical Care Time Critical Care Time (minutes): 60
[2021-06-13] MEDS: Rocuronium Bromide 50 MG/5 ML VIAL 80 MG IVPUSH (06:08)
[2021-06-13] MEDS: Etomidate 20 MG/10 ML VIAL IVPUSH (06:08)
[2021-06-13] MEDS: propofoL 1,000 MG/100 ML VIAL 9.84 MG IVCONT (06:16)
--- NOTE | 2021-06-13 06:16 | PC.NURSE ---
Pt intubated @ 0610. Propofol infusing @ 0616.
[2021-06-13 06:31] LABS: Glucose, Whole Blood 92 mg/dL (60-115)
[2021-06-13 06:41] LABS: MANUAL DIFF FLAG NO
[2021-06-13 06:44] LABS: Basophils Percent Auto 0.3 % (0-2); Eosinophils Absolute Auto 0.1 X10*3/uL (0.0-0.4); Eosinophils Percent Auto 0.6 % (0-4); Hematocrit 36.5 % (42-52); Hemoglobin 11.8 g/dl (14.0-18.0); Imm Gran Abs Auto 0.09 X10*3/uL (0.00-0.03); Imm Gran Pct Auto 0.8 % (0.0-0.4); Lymphocytes Absolute Auto 2.4 X10*3/uL (1.2-4.9); Lymphocytes Percent Auto 20.3 % (20-40); Mean Corpuscular HGB Conc 32.3 g/dl (31.0-36.0); Mean Corpuscular Hemoglobin 30.5 pg (27.0-33.0); Mean Corpuscular Volume 94.3 fL (80-98); Mean Platelet Volume 10.2 fL (9.4-12.4); Monocytes Absolute Auto 1.2 X10*3/uL (0.1-1.2); Monocytes Percent Auto 9.9 % (2-11); Neutrophils Absolute Auto 7.9 X10*3/uL (2.0-8.3); Neutrophils Percent Auto 68.1 % (45-73); Platelet Count 129 X10*3/uL (160-400); Red Blood Count 3.87 X10*6/uL (4.60-5.80); Red Cell Distribution Width 19.7 % (11.0-16.0); White Blood Count 11.6 X10*3/uL (4.8-10.8)
--- NOTE | 2021-06-13 07:02 | PC.NURSE ---
Late entry: 0600 ICU TUMBLER TENDER at bedside due to persistent agitation and restlessness despite being maxed on Precedex @ 1.5 Plan to intubate. Pt medication with 20 of Etomidate and 80 of Rocc prior to intubation, pt intubated with a 7.5 ETT, 27@ lip line, good color change noted with Capnography. Vent settings TV 450, RR 20, PEEP 5, O2 50%. XRay at bedside confirming ETT placement. Second IV line established. LR and Propofol infusing per MAR, per pharmacy, medications compatible. Clear secretions suctioned from mouth and nose. Pt incontinent of diarrhea, provided with paresh care and a complete bed change. Collazo placed by LISA Martin. Approx 350 ml of UO noted in collazo bag, VSS at this time however pt remains tachycardic @ 140 bpm and hypertensive (hypertensive since intubation). Report given to TRIM STENCIL MAKER, RT called for transport. Staff at bedside preparing pt for transport to floor.
--- NOTE | 2021-06-13 07:09 | PC.NURSE ---
Pt daryn ETT. Pt medicated by Gabriela GONZALEZ with 4 mg of Versed per verbal order from MD Salazar.
[2021-06-13 07:12] LABS: Alanine Aminotransferase 57 U/L (0-40); Albumin Level 3.3 g/dL (3.5-5.0); Alkaline Phosphatase 117 U/L (39-117); Anion Gap 12 (12-20); Aspartate Amino Transferase 98 U/L (5-37); Bilirubin Total 0.7 mg/dL (0.0-1.0); Blood Urea Nitrogen 14 mg/dL (9-16); Calcium 7.7 mg/dL (8.4-10.2); Carbon Dioxide 27 mmol/L (22-29); Chloride 105 mmol/L (96-108); Creatinine Clr Calc Pharmacy 123.3; Estimated Glomerular Filt Rate > 60; Glucose Random 106 mg/dL (60-115); Magnesium 1.5 mg/dL (1.6-2.6); Phosphorus 2.4 mg/dL (2.7-4.5); Potassium 3.5 mmol/L (3.3-5.1); Sodium 140 mmol/L (135-145); Total Protein 6.7 g/dL (6.5-8.0)
[2021-06-13] MEDS: Midazolam HCl/PF 2 MG/2 ML VIAL 4 MG IVPUSH (07:13)
--- NOTE | 2021-06-13 07:20 | PC.NURSE ---
OG placed by LISA Kellogg.
--- NOTE | 2021-06-13 07:22 | PC.NURSE ---
Pt off to ICU on hospital bed with RN and RT.
[2021-06-13] MEDS: Thiamine HCL 200 MG/2 ML VIAL 100 MG IVPUSH (07:59)
[2021-06-13] MEDS: propofoL 1,000 MG/100 ML VIAL 24.6 MG IVCONT ×4 (07:59→18:33)
--- NOTE | 2021-06-13 08:11 | PM.CCN ---
Critical Care Event Note Summary Date of Service: 06/13/21 Code activated: No Narrative: No evidence of sepsis. Hypotension secondary to requirements for sedation with ventilatory support and alcohol withdrawal. Leukocytosis likely secondary to physiologic stress from delirium tremens. Critical Care Time (minutes): 0
[2021-06-13 08:30] LABS: VBG Base Excess -0.2 mmol/L; VBG HCO3 25 mmol/L (22-26); VBG pCO2 44 mmHg; VBG pH 7.35 (7.32-7.43); VBG pO2 88 mmHg
[2021-06-13 08:34] LABS: MANUAL DIFF FLAG NO
[2021-06-13 08:37] LABS: Basophils Absolute Auto 0.1 X10*3/uL (0.0-0.2); Basophils Percent Auto 0.5 % (0-2); Eosinophils Absolute Auto 0.1 X10*3/uL (0.0-0.4); Eosinophils Percent Auto 0.8 % (0-4); Hematocrit 34.2 % (42-52); Hemoglobin 10.9 g/dl (14.0-18.0); Imm Gran Abs Auto 0.07 X10*3/uL (0.00-0.03); Imm Gran Pct Auto 0.8 % (0.0-0.4); Lymphocytes Absolute Auto 1.3 X10*3/uL (1.2-4.9); Lymphocytes Percent Auto 13.9 % (20-40); Mean Corpuscular HGB Conc 31.9 g/dl (31.0-36.0); Mean Corpuscular Hemoglobin 30.4 pg (27.0-33.0); Mean Corpuscular Volume 95.5 fL (80-98); Mean Platelet Volume 10.2 fL (9.4-12.4); Monocytes Absolute Auto 0.7 X10*3/uL (0.1-1.2); Monocytes Percent Auto 7.5 % (2-11); Neutrophils Percent Auto 76.5 % (45-73); Platelet Count 119 X10*3/uL (160-400); Red Blood Count 3.58 X10*6/uL (4.60-5.80); Red Cell Distribution Width 19.4 % (11.0-16.0); White Blood Count 9.2 X10*3/uL (4.8-10.8)
[2021-06-13] MEDS: Folic Acid 1 MG TABLET PO (08:45)
[2021-06-13] MEDS: levoFLOXacin 750 MG TABLET PO (08:45)
[2021-06-13 09:05] LABS: Venous Blood Gas Refer to POC result
[2021-06-13] MEDS: Ampicillin Sodium/Sulbactam Na 3 GM in 0.9 % Sodium Chloride 100 ML IV ×3 (10:56→21:38)
[2021-06-13] MEDS: Magnesium Sulfate/H2O 2 GM/50 ML PIGGYBACK IV (10:57)
[2021-06-13] MEDS: Potassium Phosphate 30 MMOL in 0.9 % Sodium Chloride 500 ML 85 MMOL IV (10:57)
--- NOTE | 2021-06-13 14:18 | MHC.CLN ---
NUTRITION/TUBE FEEDING PATIENT CURRENTLY INTUBATED. RD RECOMMENDS TUBE FEEDING JEVITY 1.0 WITH GOAL RATE OF 75 CC/HOUR TO PROVIDE 1800 ML FORMULA, 1908 KCAL +650 KCAL LIPDS FROM [id number] KCAL (31.2 KCAL/KG ABW), 80 G PROTEIN (.98 G/KG ABW), AND 1500 CC FREE WATER
[2021-06-13] MEDS: Acetaminophen 325 MG TABLET 650 MG PO (16:38)
[2021-06-13] MEDS: dexmedeTOMIDidine HCL/NS 400 MCG/100 ML INFUS..BTL 15.42 MCG IVCONT (16:40)
--- NOTE | 2021-06-13 17:12 | PC.NURSE ---
Patient admitted to ICU from ER at 0745. Intubated and sedated for EtOH withdrawal DTs. Only Propofol running on arrival, titrated to max dose rate at 0800 which held patient at -2 RASS until 13:20 Precedex restarted at 13:25 with 1mcg/kg/min dose rate for increased agitation, elevated RR and desat. Bilaterally restrained at the wrists for ETT protection. Precedex titrated up to 1.5mcg at 14:00 for continued elevation of RR. (+) cough/gag throughout most of day until 1600 assessment. Precedex slowly weaned down for soft BPs and RASS -4. Dr. Hinds aware. Temps slowly increasing throughout the day, max 100.4F 650mg Tylenol given via OGT, aware. ST on monitor down to NSR 80s this afternoon. Vent settings AC with sset rate 20 on arrival decreased to [address] Hinds shortly after arrival. Vt 450, FiO2 between 50, 45, 40, the 50% again to maintain SpO2>95. Rhonchorous breath sounds throughout, moderate thin whitish to lau inline secretion noted. OGT placed just prior to arrival, PCXR obtained here in ICU for placement confirmation. Tube placed to suction as bile noted, 100mL collected. Clamped for med administration per protocol. another 50mL bile collected by 1600. Three loose, brown mucousy stools this shift. Incontinence care provided. Bed bath given, skin intact with no breakdown noted. Repositioned q2hrs, pillows in use for extremity elevation and pressure relief. SCDs to BLEs and Prevalon boots used for proper positioning. Alexander catheter draining clear, light onel (bilirubinous) urine. Fluids of LR running on arrival D/C'd per MD. PO ABTx changed to IV Unasyn. AM labs revealed depleted K, Mg, Phos. 2g Mag Sulfate ordered and given along with 30mmol KPhos. Thiamine change will start 06/14. 3 peripheral IV site present, #20's each of them; one Left AC, one Left upper arm, one Right FA. Diaphoresis noted at times throughout the day, LAC and RFA IV sites redressed. Presently all 3 C/D/I. Family updated via phone and upon visiting with patient in the room. All questions answered.
[2021-06-13] MEDS: propofoL 1,000 MG/100 ML VIAL 22.14 MG IVCONT (21:44)
[2021-06-14] VITALS (29 sets, daily range): BP systolic 101–196; BP diastolic 58–80; PULSE 77–90; RESP 15–28; TEMP 36.9–38; O2SAT 92–99
[2021-06-14] MEDS: propofoL 1,000 MG/100 ML VIAL 24.6 MG IVCONT ×7 (01:26→22:36)
[2021-06-14 01:47] LABS: Glucose, Whole Blood 67 mg/dL (60-115)
[2021-06-14] MEDS: Dextrose 5 % 1,000 ML 50 ML IVCONT (02:16)
--- NOTE | 2021-06-14 02:54 | PC.NURSE ---
Addendum entered by Bernabe Wild RN 06/14/21 05:28: O3:24 POC GLUCOSE=85 Original Note: CARE ASSUMED 23:15...REMAINS TUBED/VENTED...AC14/TV450/FIO2 40%/PEEP 5...RR 24-28...SAO2 88%...FIO2 TO 50% WITH SAO2 93-95%...PROPOFOL 45 MCG/KG/MIN AT HS...AWAKE SPONTANEOUSLY AT 23:20...DESPITE WRIST RESTRAINTS PATIENT SITTING UP IN BED--HAND ON ETT AND ATTEMPTING TO SELF-EXTUBATE...HARGROVE WITH GOOD STRENGTH...TRACKS SPEAKER..NODS YES WHEN ASKED IF ABLE TO HEAR AND UNDERSTAND THIS BELT AND LINK ASSEMBLY SUPERVISOR...RESTLESS/AGITATED/DIAPHORETIC..PROPOFOL TO 50 MCG/KG/MIN W/O EFFECT...PRECIDEX DRIP RESUMED AND TITRATED TO 0.7 MCG/KG/HR WITH GRADUAL RESTFUL EFFECT...INTERMITTANTLY EMERGES FROM SEDATION AND HARGROVE THEN RESTFUL...BP TOLERATED RESUMPTION OF PRECIDEX...HR DECREASED FROM 100'S TO 80'S...NSR..NO ECTOPY...FOREHEAD REMAINS DIAPHORETIC...POC GLUCOSE CHECKED...POC=67..ICU TRACTOR TECHNICIAN AWARE...STARTED D5W 50 CC/HR...[place] DRAINING YELLOW URINE...BILATERAL SOFT WRIST RESTRAINTS MAINTAINED FOR AIRWAY/LINE SAFETY
[2021-06-14 03:27] LABS: Glucose, Whole Blood 85 mg/dL (60-115)
[2021-06-14] MEDS: Ampicillin Sodium/Sulbactam Na 3 GM in 0.9 % Sodium Chloride 100 ML IV ×2 (03:39→10:11)
[2021-06-14] MEDS: dexmedeTOMIDidine HCL/NS 400 MCG/100 ML INFUS..BTL 13.49 MCG IVCONT ×2 (04:07→10:57)
[2021-06-14 05:31] LABS: VBG Base Excess 1.8 mmol/L; VBG HCO3 25 mmol/L (22-26); VBG pCO2 36 mmHg; VBG pH 7.45 (7.32-7.43); VBG pO2 115 mmHg
[2021-06-14 05:35] LABS: MANUAL DIFF FLAG NO; Venous Blood Gas Refer to POC result
[2021-06-14 05:37] LABS: Basophils Absolute Auto 0.1 X10*3/uL (0.0-0.2); Basophils Percent Auto 0.8 % (0-2); Eosinophils Absolute Auto 0.2 X10*3/uL (0.0-0.4); Eosinophils Percent Auto 2.1 % (0-4); Hematocrit 35.8 % (42-52); Hemoglobin 11.2 g/dl (14.0-18.0); Imm Gran Abs Auto 0.07 X10*3/uL (0.00-0.03); Imm Gran Pct Auto 0.7 % (0.0-0.4); Lymphocytes Absolute Auto 1.6 X10*3/uL (1.2-4.9); Lymphocytes Percent Auto 15.3 % (20-40); Mean Corpuscular HGB Conc 31.3 g/dl (31.0-36.0); Mean Corpuscular Hemoglobin 30.3 pg (27.0-33.0); Mean Corpuscular Volume 96.8 fL (80-98); Mean Platelet Volume 10.6 fL (9.4-12.4); Monocytes Absolute Auto 0.8 X10*3/uL (0.1-1.2); Monocytes Percent Auto 7.9 % (2-11); Neutrophils Absolute Auto 7.4 X10*3/uL (2.0-8.3); Neutrophils Percent Auto 73.2 % (45-73); Platelet Count 138 X10*3/uL (160-400); Red Cell Distribution Width 18.9 % (11.0-16.0); White Blood Count 10.1 X10*3/uL (4.8-10.8)
[2021-06-14 06:05] LABS: Alanine Aminotransferase 55 U/L (0-40); Albumin Level 2.8 g/dL (3.5-5.0); Alkaline Phosphatase 106 U/L (39-117); Anion Gap 14 (12-20); Aspartate Amino Transferase 72 U/L (5-37); Bilirubin Total 0.6 mg/dL (0.0-1.0); Blood Urea Nitrogen 11 mg/dL (9-16); Calcium 7.8 mg/dL (8.4-10.2); Carbon Dioxide 24 mmol/L (22-29); Chloride 104 mmol/L (96-108); Creatinine Clr Calc Pharmacy 128.3; Estimated Glomerular Filt Rate > 60; Glucose Random 89 mg/dL (60-115); Potassium 3.9 mmol/L (3.3-5.1); Sodium 138 mmol/L (135-145); Total Protein 5.9 g/dL (6.5-8.0)
[2021-06-14] MEDS: Heparin Sodium,Porcine 5,000 UNIT/ML VIAL 5000 UNIT SUBCUT ×2 (08:39→21:25)
[2021-06-14] MEDS: Thiamine HCL 200 MG/2 ML VIAL 300 MG IVPUSH (08:39)
[2021-06-14] MEDS: Folic Acid 1 MG TABLET PO (09:04)
--- NOTE | 2021-06-14 11:25 | PM.CCPN ---
Subjective Subjective Date of Service: 06/14/21 Interval History: 40-year-old gentleman with underlying history of hyper IgE syndrome, bronchiectasis, severe persistent allergic asthma, significant alcohol consumption admitted on 06/12/2021 with delirium tremens requiring intubation and ventilatory support and transfer to intensive care unit on 06/13/2021. Critical Care Time (minutes): 45 Physical Exam Vital Signs: Vital Signs: Last Vital Signs Temp 99.7 F 06/14/21 11:00 Pulse 82 06/14/21 11:00 Resp 25 H 06/14/21 11:00 BP 111/72 06/14/21 11:00 Pulse Ox 94 06/14/21 11:00 Body Mass Index 27.4 Const: General: no acute distress and other (Sedated on the vent) Eyes: Sclerae: sclerae normal EOM: EOMs intact bilaterally Neck: Neck: Yes no lymphadenopathy, Yes trachea midline and Yes supple Resp: Auscultation: clear to auscultation bilaterally Cardio: Rate: regular rate Rhythm: regular rhythm Heart sounds: no gallops, no murmurs and no rubs GI: Palpation (GI): Soft to palpation and Other GI palpation findings present ( Nontender) Auscultation: normal bowel sounds Extrem: General: Yes no pedal edema, No clubbing and No cyanosis Objective Data Labs CBC & Chem 7: 06/14/21 05:25 06/14/21 05:25 Labs: Laboratory Results - last 24 hr 06/14/21 06/14/21 06/14/21 01:44 03:24 05:24 WBC RBC Hgb Hct MCV MCH MCHC RDW Plt Count MPV Immature Gran % (Auto) Neut % (Auto) Lymph % (Auto) [place] % (Auto) Eos % (Auto) Baso % (Auto) Lymph # (Auto) [place] # (Auto) Eos # (Auto) Baso # (Auto) Abs Immat Gran (auto) Absolute Neuts (auto) Absolute Nucleated RBC Nucleated RBC % (auto) VBG pH 7.45 H VBG pCO2 36 VBG pO2 115 VBG HCO3 25 VBG O2 Saturation 98.0 VBG Base Excess 1.8 Sodium Potassium Chloride Carbon Dioxide Anion Gap BUN Creatinine Estim Creat Clear Calc Estimated GFR POC Glucose 67 85 Random Glucose Calcium Phosphorus Magnesium Total Bilirubin AST ALT Alkaline Phosphatase Total Protein Albumin 06/14/21 06/14/21 05:25 05:25 WBC 10.1 RBC 3.70 L Hgb 11.2 L Hct 35.8 L MCV 96.8 MCH 30.3 MCHC 31.3 RDW 18.9 H Plt Count 138 L MPV 10.6 Immature Gran % (Auto) 0.7 H Neut % (Auto) 73.2 H Lymph % (Auto) 15.3 L [place] % (Auto) 7.9 Eos % (Auto) 2.1 Baso % (Auto) 0.8 Lymph # (Auto) 1.6 [place] # (Auto) 0.8 Eos # (Auto) 0.2 Baso # (Auto) 0.1 Abs Immat Gran (auto) 0.07 H Absolute Neuts (auto) 7.4 Absolute Nucleated RBC 0.000 Nucleated RBC % (auto) 0.0 VBG pH VBG pCO2 VBG pO2 VBG HCO3 VBG O2 Saturation VBG Base Excess Sodium 138 Potassium 3.9 Chloride 104 Carbon Dioxide 24 Anion Gap 14 BUN 11 Creatinine 0.74 Estim Creat Clear Calc 128.3 Estimated GFR > 60 POC Glucose Random Glucose 89 Calcium 7.8 L Phosphorus 3.0 Magnesium 2.0 Total Bilirubin 0.6 AST 72 H ALT 55 H Alkaline Phosphatase 106 Total Protein 5.9 L Albumin 2.8 L Progress Note: A&P Assessment and plan (1) Alcohol abuse with withdrawal: Status: Acute Assessment and Plan: Assessment: 40-year-old gentleman with underlying history of severe persistent asthma with bronchiectasis and hyper Hg syndrome, also alcohol abuse admitted to with delirium tremens requiring intubation and ventilatory support for high-dose sedative drips Plan: Neuro: Toxic encephalopathy secondary delirium tremens, continue to titrate of sedative drips as tolerated. Cardiac: No acute issues. Pulmonary: Acute respiratory failure secondary to requirements for high duo sedative drips. Continue to titrate of ventilatory support as tolerated. Renal: No acute issues. Endo: No acute issues. GI: No acute issues. ID: No acute issues Heme/Onc: No acute issues. Psych: No acute issues. Miscellaneous: No acute issues. Prophylaxis: Heparin, famotidine Diet: Tube feeds Critical care time spent: 45 minutes (2) Severe persistent allergic asthma: Status: Acute (3) Bronchiectasis: Status: Acute (4) Elevated IgE level: Status: Acute (5) Acute respiratory failure: Status: Acute Quality Stroke Does the patient have a stroke diagnosis?: No VTE Prior VTE?: No VTE Risk Level:: Medical - moderate - high VTE Device Contraindication: Treatment Not Indicated VTE Drug Contraindication: N/A - Med Ordered
--- NOTE | 2021-06-14 12:28 | MHC.CLN ---
F/U RECOMMEND CHANGING FORMULA TO PROMOTE TO MEET PROTEIN NEEDS RECOMMEND PROMOTE AT MAX GOAL RATE 60ML/HR WITH 240ML FREE WATER FLUSHES Q 4 HRS TO PROVIDE 1440KCALS (2089KCALS WITH SEDATION; 25KCALS/KG), 90G PROTEIN (1.09G/KG), 2648ML TOTAL WATER FROM FORMULA AND FLUSHES (32KML/KG) START TF AT 20ML/HR AND INCREASE BY 10ML Q 4 HRS UNTIL GOAL RATE IS ACHIEVED MONITOR TOLERANCE, RESIDUALS AND LYTES
--- NOTE | 2021-06-14 16:03 | MHC.CM.PN ---
Patient remains in ICU, intubated/vented on 06/13. No HCP on file. May need physical therapy eval when medically stable. Continue to monitor for d/c needs.
[2021-06-14] MEDS: dexmedeTOMIDidine HCL/NS 400 MCG/100 ML INFUS..BTL 28.92 MCG IVCONT ×3 (16:06→22:36)
--- NOTE | 2021-06-14 17:21 | PC.NURSE ---
Patient remains intubated to assist with EtOH withdrawals. Sedated on Propofol and Precedex. Precedex titrated up throughout the day to maintain cooperation with vent and to maintain stable RASS. Bilaterally restrained at the wrists for ETT protection. (+) cough/gag, and has been noted throughout the day to emerge from sedation and fight against restraints, reaching for ETT. Low grade temps, Max 100.2F NSR on the monitor with stable BPs throughout the day. Vent settings unchanged this shift. AC settings rate 14/ Vt 450/ FiO2 50% with PEEP 5. Lungs remain rhonchorous, with thin lau secretions inline. Tube feeds started today with free water boluses. Running as ordered and also advancing per orders. Repositioned q2hrs, with bed bath today at 1500. Wedges and pillows used for repositioning and pressure relief. Family in to visit in shifts throughout the day, updated with all questions answered.
[2021-06-15] VITALS (31 sets, daily range): BP systolic 101–166; BP diastolic 51–83; PULSE 77–98; RESP 15–29; TEMP 37.7–38.7; O2SAT 93–99
[2021-06-15] MEDS: propofoL 1,000 MG/100 ML VIAL 24.6 MG IVCONT ×8 (01:52→21:36)
[2021-06-15] MEDS: dexmedeTOMIDidine HCL/NS 400 MCG/100 ML INFUS..BTL 28.92 MCG IVCONT ×8 (01:52→21:36)
--- NOTE | 2021-06-15 04:20 | PC.NURSE ---
pt has experienced several episodes of emergence from sedation in which he becomes restless and agitated. complexion pale. at times diaphoretic. attempts to localize hands toward invasive lines. conrad in a purposeful fashion. intubated and mechanically ventilated. breath sounds coarse with scattered i/e rhonchi suctioned via ett for large amounts of yellow beige phlegm which color resembles tube feedings. midlevel provided earl laguna machine turner summoned to bedside. tube feedings on hold. hemodynamically stable. ecg displays sr. abdomen slightly distended soft. collazo catheter patent and drainingh onel urine
[2021-06-15 05:34] LABS: VBG HCO3 27 mmol/L (22-26); VBG pCO2 39 mmHg; VBG pH 7.46 (7.32-7.43); VBG pO2 60 mmHg
[2021-06-15 05:37] LABS: MANUAL DIFF FLAG NO
[2021-06-15 05:39] LABS: Venous Blood Gas Refer to POC result
[2021-06-15 05:50] LABS: Basophils Absolute Auto 0.1 X10*3/uL (0.0-0.2); Basophils Percent Auto 0.6 % (0-2); Eosinophils Absolute Auto 0.2 X10*3/uL (0.0-0.4); Eosinophils Percent Auto 2.3 % (0-4); Hematocrit 38.6 % (42-52); Hemoglobin 12.4 g/dl (14.0-18.0); Imm Gran Abs Auto 0.14 X10*3/uL (0.00-0.03); Imm Gran Pct Auto 1.4 % (0.0-0.4); Lymphocytes Absolute Auto 1.7 X10*3/uL (1.2-4.9); Mean Corpuscular HGB Conc 32.1 g/dl (31.0-36.0); Mean Corpuscular Hemoglobin 30.6 pg (27.0-33.0); Mean Corpuscular Volume 95.3 fL (80-98); Mean Platelet Volume 10.8 fL (9.4-12.4); Monocytes Absolute Auto 0.9 X10*3/uL (0.1-1.2); Monocytes Percent Auto 9.1 % (2-11); Neutrophils Absolute Auto 6.8 X10*3/uL (2.0-8.3); Neutrophils Percent Auto 69.6 % (45-73); Platelet Count 167 X10*3/uL (160-400); Red Blood Count 4.05 X10*6/uL (4.60-5.80); Red Cell Distribution Width 18.8 % (11.0-16.0); White Blood Count 9.8 X10*3/uL (4.8-10.8)
[2021-06-15 06:03] LABS: Albumin Level 2.7 g/dL (3.5-5.0); Anion Gap 15 (12-20); Blood Urea Nitrogen 7 mg/dL (9-16); Calcium 7.8 mg/dL (8.4-10.2); Carbon Dioxide 24 mmol/L (22-29); Chloride 103 mmol/L (96-108); Estimated Glomerular Filt Rate > 60; Glucose Random 107 mg/dL (60-115); Magnesium 1.8 mg/dL (1.6-2.6); Phosphorus 2.7 mg/dL (2.7-4.5); Potassium 3.9 mmol/L (3.3-5.1); Sodium 138 mmol/L (135-145)
[2021-06-15] MEDS: Midazolam HCl/PF 2 MG/2 ML VIAL IVPUSH (06:53)
[2021-06-15] MEDS: LORazepam 2 MG/ML VIAL 4 MG IVPUSH (08:07)
[2021-06-15] MEDS: Thiamine HCL 200 MG/2 ML VIAL 300 MG IVPUSH (08:08)
[2021-06-15] MEDS: Heparin Sodium,Porcine 5,000 UNIT/ML VIAL 5000 UNIT SUBCUT ×2 (08:09→19:52)
[2021-06-15] MEDS: Famotidine/PF 20 MG/2 ML VIAL IVPUSH (08:09)
--- NOTE | 2021-06-15 08:54 | PM.CCPN ---
Subjective Subjective Date of Service: 06/15/21 Interval History: 40-year-old gentleman with underlying history of hyper IgE syndrome, bronchiectasis, severe persistent allergic asthma, significant alcohol consumption admitted on 06/12/2021 with delirium tremens requiring intubation and ventilatory support and transfer to intensive care unit on 06/13/2021. No events overnight. Patient to require sedative drips with becoming agitated and not following commands with sedation vacation. Critical Care Time (minutes): 45 Physical Exam Vital Signs: Vital Signs: Last Vital Signs Temp 101.5 F H 06/15/21 08:00 Pulse 87 06/15/21 08:00 Resp 20 06/15/21 08:00 BP 106/62 06/15/21 08:00 Pulse Ox 96 06/15/21 08:00 Body Mass Index 27.4 Const: General: no acute distress and other (Sedated on the vent) Eyes: Sclerae: sclerae normal EOM: EOMs intact bilaterally Neck: Neck: Yes no lymphadenopathy, Yes trachea midline and Yes supple Resp: Effort & Inspection: normal respiratory effort and no respiratory distress Auscultation: clear to auscultation bilaterally Cardio: Rate: regular rate Rhythm: regular rhythm Heart sounds: no gallops, no murmurs and no rubs GI: Palpation (GI): Soft to palpation and Other GI palpation findings present ( Nontender) Auscultation: normal bowel sounds Extrem: General: Yes no pedal edema, No clubbing and No cyanosis Objective Data Labs CBC & Chem 7: 06/15/21 05:25 06/15/21 05:25 Labs: Laboratory Results - last 24 hr 06/15/21 06/15/21 06/15/21 05:25 05:25 05:27 WBC 9.8 RBC 4.05 L Hgb 12.4 L Hct 38.6 L MCV 95.3 MCH 30.6 MCHC 32.1 RDW 18.8 H Plt Count 167 MPV 10.8 Immature Gran % (Auto) 1.4 H Neut % (Auto) 69.6 Lymph % (Auto) 17.0 L [place] % (Auto) 9.1 Eos % (Auto) 2.3 Baso % (Auto) 0.6 Lymph # (Auto) 1.7 [place] # (Auto) 0.9 Eos # (Auto) 0.2 Baso # (Auto) 0.1 Abs Immat Gran (auto) 0.14 H Absolute Neuts (auto) 6.8 Absolute Nucleated RBC 0.000 Nucleated RBC % (auto) 0.0 VBG pH 7.46 H VBG pCO2 39 VBG pO2 60 VBG HCO3 27 H VBG O2 Saturation 89.0 VBG Base Excess 4.0 Sodium 138 Potassium 3.9 Chloride 103 Carbon Dioxide 24 Anion Gap 15 BUN 7 L Creatinine 0.76 Estim Creat Clear Calc 125.0 Estimated GFR > 60 Random Glucose 107 Calcium 7.8 L Phosphorus 2.7 Magnesium 1.8 Albumin 2.7 L Progress Note: A&P Assessment and plan (1) Acute respiratory failure: Status: Acute Assessment and Plan: Assessment: 40-year-old gentleman with underlying history of severe persistent asthma with bronchiectasis and hyper Hg syndrome, also alcohol abuse admitted to with delirium tremens requiring intubation and ventilatory support for high-dose sedative drips Plan: Neuro: Toxic encephalopathy secondary delirium tremens, continue to titrate off sedative drips as tolerated. Still with very high sedation requirements. Cardiac: No acute issues. Pulmonary: Acute respiratory failure secondary to requirements for high dose of sedative drips. Continue to titrate off ventilatory support as tolerated. Renal: No acute issues. Endo: No acute issues. GI: No acute issues. Underlying alcoholic hepatitis. ID: No acute issues Heme/Onc: No acute issues. Psych: No acute issues. Miscellaneous: No acute issues. Prophylaxis: Heparin, famotidine Diet: Tube feeds Critical care time spent: 45 minutes (2) Alcohol abuse with withdrawal: Status: Acute (3) Bronchiectasis: Status: Acute (4) Severe persistent allergic asthma: Status: Acute Quality Stroke Does the patient have a stroke diagnosis?: No VTE Prior VTE?: No VTE Risk Level:: Medical - moderate - high VTE Device Contraindication: Treatment Not Indicated VTE Drug Contraindication: N/A - Med Ordered
[2021-06-15] MEDS: Acetaminophen Supp 650 MG SUPP.RECT PR (09:06)
[2021-06-15] MEDS: Magnesium Sulfate/H2O 2 GM/50 ML PIGGYBACK IV (09:37)
[2021-06-15] MEDS: Dextrose 5 % 1,000 ML 50 ML IVCONT (14:15)
--- NOTE | 2021-06-15 15:10 | MHC.CLN ---
NUTRITION TUBE FEEDING CURRENTLY ON HOLD. IF TUBE FEEDING RESUMES: RECOMMEND PROMOTE AT MAX GOAL RATE 60ML/HR WITH 240ML FREE WATER FLUSHES Q 4 HRS TO PROVIDE 1440KCALS (2089KCALS WITH SEDATION; 25KCALS/KG), 90G PROTEIN (1.09G/KG), 2648ML TOTAL WATER FROM FORMULA AND FLUSHES (32KML/KG) START TF AT 20ML/HR AND INCREASE BY 10ML Q 4 HRS UNTIL GOAL RATE IS ACHIEVED MONITOR TOLERANCE, RESIDUALS AND LYTES
--- NOTE | 2021-06-15 15:46 | MHC.CM.PN ---
Pt continues on vent support in ICU: FiO2 40%. Significant other, Angela states she completed the [place] application and filed online. [facility] financial updated. D/C plans unfinalized at this time: will await extubation and assessment of functional ability.
--- NOTE | 2021-06-15 17:51 | PC.NURSE ---
Remains intubated on MAX doses of Propofol and Precedex, wide awake this AM shortly after change of shift. Excellent cough/gag, resulting in large projectile vomiting episode, tube feed consistency secretions inline. Feeds off since 0400, OGT to ILWS at the time. Patient remained agitated despite sedation. MD present in room at this time and ordered 4mg IVP Ativan. RT on unit to change out HME on vent tubing. After discussion in rounds, vent settings changed to PC. Pi set at 12. PIP 18. SpO2 93 and better, FiO2 weaned from 50 to 40%. Lungs remain rhonchorous. Tmax today 101.7F 650mg Tylenol given with good effect, now 100F NSR with BPs becoming soft at 1400. MD notified as UO also down to 30mL/hr. IV infusion of D5W started at 50mL/hr continuous. UO improved this afternoon. to over 100 out in one hour. Meds as ordered today, with the addition of IV Mag Sulfate for Mag level 1.8. Skin intact. Repositioned and bed bath given this AM. Oral care per Vent bundle protocol. Family update in person today by RN during visits.
[2021-06-16] VITALS (36 sets, daily range): BP systolic 91–129; BP diastolic 35–73; PULSE 76–147; RESP 14–32; TEMP 37.2–39.3; O2SAT 88–98
[2021-06-16] MEDS: dexmedeTOMIDidine HCL/NS 400 MCG/100 ML INFUS..BTL 28.92 MCG IVCONT ×4 (00:37→09:11)
[2021-06-16] MEDS: propofoL 1,000 MG/100 ML VIAL 24.6 MG IVCONT ×3 (00:37→07:34)
[2021-06-16 05:20] LABS: VBG Base Excess 3.9 mmol/L; VBG HCO3 26 mmol/L (22-26); VBG pCO2 34 mmHg; VBG pO2 58 mmHg
[2021-06-16 05:34] LABS: MANUAL DIFF FLAG NO
[2021-06-16 05:40] LABS: Basophils Absolute Auto 0.1 X10*3/uL (0.0-0.2); Basophils Percent Auto 0.7 % (0-2); Eosinophils Absolute Auto 0.2 X10*3/uL (0.0-0.4); Eosinophils Percent Auto 1.7 % (0-4); Hematocrit 37.1 % (42-52); Hemoglobin 12.1 g/dl (14.0-18.0); Imm Gran Abs Auto 0.22 X10*3/uL (0.00-0.03); Imm Gran Pct Auto 2.4 % (0.0-0.4); Lymphocytes Absolute Auto 1.6 X10*3/uL (1.2-4.9); Lymphocytes Percent Auto 17.6 % (20-40); Mean Corpuscular HGB Conc 32.6 g/dl (31.0-36.0); Mean Corpuscular Hemoglobin 30.8 pg (27.0-33.0); Mean Corpuscular Volume 94.4 fL (80-98); Mean Platelet Volume 10.8 fL (9.4-12.4); Monocytes Absolute Auto 1.2 X10*3/uL (0.1-1.2); Monocytes Percent Auto 13.2 % (2-11); Neutrophils Absolute Auto 5.9 X10*3/uL (2.0-8.3); Neutrophils Percent Auto 64.4 % (45-73); Platelet Count 189 X10*3/uL (160-400); Red Blood Count 3.93 X10*6/uL (4.60-5.80); White Blood Count 9.2 X10*3/uL (4.8-10.8)
[2021-06-16 06:12] LABS: Albumin Level 2.7 g/dL (3.5-5.0); Anion Gap 14 (12-20); Blood Urea Nitrogen 5 mg/dL (9-16); Calcium 7.6 mg/dL (8.4-10.2); Carbon Dioxide 24 mmol/L (22-29); Chloride 103 mmol/L (96-108); Creatinine Clr Calc Pharmacy 126.6; Estimated Glomerular Filt Rate > 60; Glucose Random 100 mg/dL (60-115); Phosphorus 2.9 mg/dL (2.7-4.5); Potassium 3.7 mmol/L (3.3-5.1); Sodium 137 mmol/L (135-145)
[2021-06-16 06:16] LABS: Venous Blood Gas Refer to POC result
[2021-06-16] MEDS: Thiamine HCL 200 MG/2 ML VIAL 300 MG IVPUSH (07:42)
[2021-06-16] MEDS: Heparin Sodium,Porcine 5,000 UNIT/ML VIAL 5000 UNIT SUBCUT ×2 (07:42→21:01)
[2021-06-16] MEDS: Famotidine/PF 20 MG/2 ML VIAL IVPUSH (07:42)
[2021-06-16] MEDS: Dextrose 5 % 1,000 ML 50 ML IVCONT (07:43)
[2021-06-16] MEDS: Albuterol/Iprat 2.5/0.5MG 3 ML AMPUL.NEB INHALE ×4 (09:52→20:06)
--- NOTE | 2021-06-16 10:16 | PC.NURSE ---
Addendum entered by Martha Hand RN 06/16/21 18:29: TEMP CURRENTLY 101.1 CORE, HR 110-120S. 02 94-95% ON HIGH FLOW 40L/50%. PRECEDEX REMAINS ON, SEE EMAR. URINE DARK GREEN IN COLOR, MD NOTIFIED AND IV FLUIDS ORDERED AND STARTED. BM X 2. MODERATE, BROWN, LIQUID. OOB TO COMMODE W/ 1 ASSIST. TOLERATED FAIR. Addendum entered by Martha Hand RN 06/16/21 14:15: WOB INCREASED TO RR IN 30S, 02 86-88% ON 5L NC. MD NOTIFIED. PLACED ON HIGH FLOW 40L/50%, 02 INCREASED TO 92%. PT CONTINUES TO PRODUCE LARGE, THICK, GLORIA SPUTUM. PRECEDEX GTT RESTARTED AT 1246 DUE TO PTS RESTLESSNESS AND STATING OF FEELING ANXIOUS . SEE EMAR. TEMP 102.7 CORE, HR INCREASED TO 130-140S. MD NOTIFIED. PRN RECTAL TYLENOL ADMINISTERED AT 1258. EFFECTS PENDING. NOTIFIED AND ORDERED CXR AND LEVOFLOXACIN 750 MG IV Q24 - ADMINISTERED. OKAY TO GIVE SMALL AMOUNT OF ICE CHIPS PER MD. WILL CONTINUE TO MONITOR. Original Note: PT SWITCHED TO PSV 5/5 AT 30% AT 0738. PROPOFOL DECREASED TO 20 MCG/KG/MIN FOR SEDATION VACATION AT 0915. PROPOFOL TURNED OFF AT 0923, PT ABLE TO FOLLOW COMMANDS AND NOD YES OR NO TO SIMPLE QUESTIONS. EXTUBATED TO 5L NC AT 0930. PRECEDEX GTT DECREASED AND TURNED OFF AT 1021. PT C/O SOB, UPDRAFT GIVEN BY RT. WILL CONTINUE TO MONITOR. FAMILY UPDATED AND BEDSIDE.
--- NOTE | 2021-06-16 10:41 | P.PNCC_ITS ---
Subjective Subjective Date of Service: 06/16/21 Critical Care Time (minutes): 45 Comment: 40-year-old gentleman with underlying history of hyper IgE syndrome, bronchiectasis, severe persistent allergic asthma, significant alcohol consumption admitted on 06/12/2021 with delirium tremens requiring intubation and ventilatory support and transfer to intensive care unit on 06/13/2021. No events overnight. Encephalopathy improving significantly. Extubated this a.m. Physical Exam Vital Signs: Vital Signs: Last Vital Signs Temp 100.6 F H 06/16/21 10:00 Pulse 101 H 06/16/21 10:00 Resp 21 H 06/16/21 10:00 BP 105/56 L 06/16/21 10:00 Pulse Ox 89 L 06/16/21 10:00 Body Mass Index 27.4 Const: General: no acute distress and lethargic (Arousable) Kraig entation/consciousness: lethargic (Arousable) Eyes: Sclerae: sclerae normal EOM: EOMs intact bilaterally Neck: Neck: Yes no lymphadenopathy, Yes trachea midline and Yes supple Resp: Effort & Inspection: normal respiratory effort and no respiratory distress Auscultation: clear to auscultation bilaterally Cardio: Rate: regular rate Rhythm: regular rhythm Heart sounds: no gallops, no murmurs and no rubs GI: Palpation (GI): Soft to palpation and Other GI palpation findings present ( Nontender) Auscultation: normal bowel sounds Extrem: General: Yes no pedal edema, No clubbing and No cyanosis Objective Data Labs CBC & Chem 7: 06/16/21 05:15 06/16/21 05:15 Labs: Laboratory Results - last 24 hr 06/16/21 06/16/21 06/16/21 05:13 05:15 05:15 WBC 9.2 RBC 3.93 L Hgb 12.1 L Hct 37.1 L MCV 94.4 MCH 30.8 MCHC 32.6 RDW 19.0 H Plt Count 189 MPV 10.8 Immature Gran % (Auto) 2.4 H Neut % (Auto) 64.4 Lymph % (Auto) 17.6 L [place] % (Auto) 13.2 H Eos % (Auto) 1.7 Baso % (Auto) 0.7 Lymph # (Auto) 1.6 [place] # (Auto) 1.2 Eos # (Auto) 0.2 Baso # (Auto) 0.1 Abs Immat Gran (auto) 0.22 H Absolute Neuts (auto) 5.9 Absolute Nucleated RBC 0.000 Nucleated RBC % (auto) 0.0 VBG pH 7.50 H VBG pCO2 34 VBG pO2 58 VBG HCO3 26 VBG O2 Saturation 88.0 VBG Base Excess 3.9 Sodium 137 Potassium 3.7 Chloride 103 Carbon Dioxide 24 Anion Gap 14 BUN 5 L Creatinine 0.75 Estim Creat Clear Calc 126.6 Estimated GFR > 60 Random Glucose 100 Calcium 7.6 L Phosphorus 2.9 Magnesium 2.0 Albumin 2.7 L Progress Note: A&P Assessment and plan (1) Acute respiratory failure: Status: Acute Assessment and Plan: Assessment: 40-year-old gentleman with underlying history of severe persistent asthma with bronchiectasis and hyper Hg syndrome, also alcohol abuse admitted to with delirium tremens requiring intubation and ventilatory support for high-dose sedative drips Plan: Neuro: Toxic encephalopathy secondary delirium tremens, improved significantly. Being titrated off Precedex. Cardiac: No acute issues. Pulmonary: Acute respiratory failure secondary to requirements for high dose of sedative drips. Extubated this a.m. Renal: No acute issues. Endo: No acute issues. GI: No acute issues. Underlying alcoholic hepatitis. ID: No acute issues Heme/Onc: No acute issues. Psych: No acute issues. Miscellaneous: No acute issues. Prophylaxis: Heparin Diet: Pending swallow evaluation Critical care time spent: 45 minutes (2) Alcohol abuse with withdrawal: Status: Acute (3) Bronchiectasis: Status: Acute (4) Severe persistent allergic asthma: Status: Acute Quality Stroke Does the patient have a stroke diagnosis?: No VTE Prior VTE?: No VTE Risk Level:: Medical - moderate - high VTE Device Contraindication: Treatment Not Indicated VTE Drug Contraindication: N/A - Med Ordered
[2021-06-16] MEDS: Acetaminophen Supp 650 MG SUPP.RECT PR (12:57)
[2021-06-16] MEDS: levoFLOXacin/D5W 750 MG/150 ML PIGGYBACK 100 MG IV (13:47)
[2021-06-16] MEDS: Dextrose 5 % and Lactated Ring 1,000 ML 75 ML IVCONT (15:47)
[2021-06-16] MEDS: dexmedeTOMIDidine HCL/NS 400 MCG/100 ML INFUS..BTL 11.57 MCG IVCONT (18:44)
[2021-06-17] VITALS (29 sets, daily range): BP systolic 104–159; BP diastolic 68–93; PULSE 85–130; RESP 13–25; TEMP 36.7–38.4; O2SAT 90–99
[2021-06-17] MEDS: dexmedeTOMIDidine HCL/NS 400 MCG/100 ML INFUS..BTL 11.57 MCG IVCONT (02:53)
[2021-06-17] MEDS: Dextrose 5 % and Lactated Ring 1,000 ML 75 ML IVCONT (04:23)
[2021-06-17] MEDS: Calcium Carbonate 750 MG TAB.CHEW PO (04:35)
[2021-06-17 05:37] LABS: VBG Base Excess 4.9 mmol/L; VBG HCO3 27 mmol/L (22-26); VBG pCO2 34 mmHg; VBG pH 7.51 (7.32-7.43); VBG pO2 57 mmHg
[2021-06-17 05:53] LABS: Basophils Absolute Auto 0.1 X10*3/uL (0.0-0.2); Basophils Percent Auto 0.6 % (0-2); Eosinophils Absolute Auto 0.1 X10*3/uL (0.0-0.4); Hematocrit 33.5 % (42-52); Hemoglobin 10.7 g/dl (14.0-18.0); Imm Gran Abs Auto 0.14 X10*3/uL (0.00-0.03); Imm Gran Pct Auto 1.3 % (0.0-0.4); Lymphocytes Absolute Auto 1.6 X10*3/uL (1.2-4.9); Lymphocytes Percent Auto 15.2 % (20-40); MANUAL DIFF FLAG SCAN; Mean Corpuscular HGB Conc 31.9 g/dl (31.0-36.0); Mean Corpuscular Hemoglobin 30.3 pg (27.0-33.0); Mean Corpuscular Volume 94.9 fL (80-98); Mean Platelet Volume 10.2 fL (9.4-12.4); Monocytes Absolute Auto 1.6 X10*3/uL (0.1-1.2); Monocytes Percent Auto 15.5 % (2-11); Neutrophils Absolute Auto 6.9 X10*3/uL (2.0-8.3); Neutrophils Percent Auto 66.4 % (45-73); Platelet Count 228 X10*3/uL (160-400); Red Blood Count 3.53 X10*6/uL (4.60-5.80); SCAN SMEAR FLAG 1; White Blood Count 10.4 X10*3/uL (4.8-10.8)
[2021-06-17 06:01] LABS: Venous Blood Gas Refer to POC result
[2021-06-17 06:19] LABS: Alanine Aminotransferase 35 U/L (0-40); Albumin Level 2.8 g/dL (3.5-5.0); Alkaline Phosphatase 107 U/L (39-117); Anion Gap 13 (12-20); Aspartate Amino Transferase 38 U/L (5-37); Bilirubin Total 0.6 mg/dL (0.0-1.0); Blood Urea Nitrogen 6 mg/dL (9-16); Calcium 7.8 mg/dL (8.4-10.2); Carbon Dioxide 26 mmol/L (22-29); Chloride 103 mmol/L (96-108); Creatinine Clr Calc Pharmacy 133.8; Estimated Glomerular Filt Rate > 60; Glucose Random 86 mg/dL (60-115); Magnesium 1.8 mg/dL (1.6-2.6); Phosphorus 2.2 mg/dL (2.7-4.5); Potassium 3.4 mmol/L (3.3-5.1); Sodium 139 mmol/L (135-145); Total Protein 5.7 g/dL (6.5-8.0)
[2021-06-17] MEDS: Pantoprazole Sodium 40 MG/10 ML VIAL IVPUSH (06:36)
[2021-06-17 06:43] LABS: SLIDE REVIEW VERIFIED
[2021-06-17] MEDS: Albuterol/Iprat 2.5/0.5MG 3 ML AMPUL.NEB INHALE ×4 (08:00→19:12)
[2021-06-17] MEDS: Acetaminophen 325 MG TABLET 650 MG PO (08:08)
[2021-06-17] MEDS: Heparin Sodium,Porcine 5,000 UNIT/ML VIAL 5000 UNIT SUBCUT ×2 (08:10→21:39)
[2021-06-17] MEDS: Potassium Phosphate 30 MMOL in 0.9 % Sodium Chloride 500 ML 85 MMOL IV (09:45)
--- NOTE | 2021-06-17 09:55 | P.PNCC_ITS ---
Subjective Subjective Date of Service: 06/17/21 Interval History: 40-year-old gentleman with underlying history of hyper IgE syndrome, bronchiectasis, severe persistent allergic asthma, significant alcohol consumption admitted on 06/12/2021 with delirium tremens requiring intubation and ventilatory support and transfer to intensive care unit on 06/13/2021. Further complicated by aspiration pneumonitis. Extubated 06/16/2021 to high- flow nasal cannula. No events overnight. FiO2 requirements improving. Passed swallow evaluation. Titrated off Precedex drip. Critical Care Time (minutes): 0 Physical Exam Vital Signs: Vital Signs: Last Vital Signs Temp 101.1 F H 06/17/21 09:00 Pulse 126 H 06/17/21 09:00 Resp 21 H 06/17/21 09:00 BP 139/86 06/17/21 09:00 Pulse Ox 91 L 06/17/21 09:00 Body Mass Index 27.4 Const: General: no acute distress, alert and awake Eyes: Sclerae: sclerae normal EOM: EOMs intact bilaterally Neck: Neck: Yes no lymphadenopathy, Yes trachea midline and Yes supple Resp: Effort & Inspection: normal respiratory effort and no respiratory distress Auscultation: clear to auscultation bilaterally Cardio: Rate: tachycardic Rhythm: regular rhythm Heart sounds: no gallops, no murmurs and no rubs GI: Palpation (GI): Soft to palpation and Other GI palpation findings present ( Nontender) Auscultation: normal bowel sounds Extrem: General: Yes no pedal edema, No clubbing and No cyanosis Objective Data Labs CBC & Chem 7: 06/17/21 05:28 06/17/21 05:28 Labs: Laboratory Results - last 24 hr 06/17/21 06/17/21 06/17/21 05:28 05:28 05:30 WBC 10.4 RBC 3.53 L Hgb 10.7 L Hct 33.5 L MCV 94.9 MCH 30.3 MCHC 31.9 RDW 19.0 H Plt Count 228 MPV 10.2 Immature Gran % (Auto) 1.3 H Neut % (Auto) 66.4 Lymph % (Auto) 15.2 L [place] % (Auto) 15.5 H Eos % (Auto) 1.0 Baso % (Auto) 0.6 Lymph # (Auto) 1.6 [place] # (Auto) 1.6 H Eos # (Auto) 0.1 Baso # (Auto) 0.1 Abs Immat Gran (auto) 0.14 H Absolute Neuts (auto) 6.9 Absolute Nucleated RBC 0.000 Nucleated RBC % (auto) 0.0 Smear Tech's Comments VERIFIED VBG pH 7.51 H VBG pCO2 34 VBG pO2 57 VBG HCO3 27 H VBG O2 Saturation 88.0 VBG Base Excess 4.9 Sodium 139 Potassium 3.4 Chloride 103 Carbon Dioxide 26 Anion Gap 13 BUN 6 L Creatinine 0.71 Estim Creat Clear Calc 133.8 Estimated GFR > 60 Random Glucose 86 Calcium 7.8 L Phosphorus 2.2 L Magnesium 1.8 Total Bilirubin 0.6 AST 38 H D ALT 35 Alkaline Phosphatase 107 Total Protein 5.7 L Albumin 2.8 L Progress Note: A&P Assessment and plan (1) Aspiration pneumonia: Status: Acute Assessment and Plan: Assessment: 40-year-old gentleman with underlying history of severe persistent asthma with bronchiectasis and hyper Hg syndrome, also alcohol abuse admitted to with delirium tremens requiring intubation and ventilatory support for high-dose sedative drips Plan: Neuro: Toxic encephalopathy secondary delirium tremens, improved significantly. Titrated off Precedex. Cardiac: No acute issues. Pulmonary: Acute respiratory failure secondary to requirements for high dose of sedative drips and aspiration pneumonitis. Extubated 06/16/2021 to high-flow nasal cannula. FiO2 requirements improving. Continue to titrate off supplemental oxygen as tolerated. Underlying severe allergic asthma and bronchiectasis. Continue with nebulized bronchodilators. Renal: No acute issues. Endo: No acute issues. GI: No acute issues. Underlying alcoholic hepatitis. ID: Aspiration pneumonitis, started on Levaquin, consider discontinuation in 24-48 hours. Heme/Onc: No acute issues. Psych: No acute issues. Miscellaneous: No acute issues. Prophylaxis: Heparin Diet: Regular (2) Acute respiratory failure: Status: Acute (3) Alcohol abuse with withdrawal: Status: Acute (4) Bronchiectasis: Status: Acute (5) Severe persistent allergic asthma: Status: Acute Quality Stroke Does the patient have a stroke diagnosis?: No VTE Prior VTE?: No VTE Risk Level:: Medical - moderate - high VTE Device Contraindication: Treatment Not Indicated VTE Drug Contraindication: N/A - Med Ordered
[2021-06-17] MEDS: Metoprolol Tartrate 5 MG/5 ML VIAL IVPUSH (12:52)
[2021-06-17] MEDS: levoFLOXacin/D5W 750 MG/150 ML PIGGYBACK 100 MG IV (14:28)
--- NOTE | 2021-06-17 16:56 | PC.NURSE ---
Addendum entered by Maura Jimenez RN 06/17/21 18:35: Patient less physically tremulous but states he does not feel good and feels shaky inside. Per MD order, 328mg Phenobarbital given IM. Original Note: Patient remains extubated. Precedex weaned to OFF this AM by 0810. Patient A+OX4. Tmax 101.1, PO tylenol given after passing RN swallow eval. ST continued throughout the day. IVP prn Lopressor ordered for any HR over 120. 5mg given x1 with fair effect, HR to the 100s from 130s. Tolerating PO, but vomiting was triggered, not because of nausea, but d/t strong gag reflex with Acapella use. Large amounts of thick yellow sputum produced. Lung sounds remain rhonchorous and wheezy. [place] NC weaned from 40L/40% down to 30L/35% maintaining SpO2 above 93% OOB x 6 today to moved bowels and pass flatus. Small to moderate amounts of liquid brown stool. Alexander Removed at 15:00. DTV by 21:00. Increased tachycardia with movement OOB as well as progressive tremulousness this afternoon. Patient under hospitalist coverage at this time d/t IMC transfer orders. Dr. Daugherty notified of patient condition as well as having no current orders for EtOH withdrawal s/p wean off Precedex. He stated he will put in orders for Phenobarbital. Family updated during in person visits today. Angela Miller at bedside for patient comfort.
[2021-06-17] MEDS: PHENobarbitaL sodium 130 MG/ML VIAL 328 MG IM (18:29)
[2021-06-17] MEDS: PHENobarbitaL sodium 130 MG/ML VIAL 246 MG IM (21:40)
[2021-06-18] VITALS (13 sets, daily range): BP systolic 95–138; BP diastolic 46–70; PULSE 95–131; RESP 17–128; TEMP 36.5–37.3; O2SAT 5–95
[2021-06-18] MEDS: PHENobarbitaL sodium 130 MG/ML VIAL 246 MG IM (00:20)
[2021-06-18 05:36] LABS: MANUAL DIFF FLAG NO
[2021-06-18 05:39] LABS: Basophils Absolute Auto 0.1 X10*3/uL (0.0-0.2); Basophils Percent Auto 0.8 % (0-2); Eosinophils Absolute Auto 0.1 X10*3/uL (0.0-0.4); Eosinophils Percent Auto 1.5 % (0-4); Hematocrit 35.1 % (42-52); Hemoglobin 11.3 g/dl (14.0-18.0); Imm Gran Abs Auto 0.16 X10*3/uL (0.00-0.03); Imm Gran Pct Auto 1.7 % (0.0-0.4); Lymphocytes Absolute Auto 1.7 X10*3/uL (1.2-4.9); Lymphocytes Percent Auto 18.4 % (20-40); Mean Corpuscular HGB Conc 32.2 g/dl (31.0-36.0); Mean Corpuscular Hemoglobin 30.5 pg (27.0-33.0); Mean Corpuscular Volume 94.6 fL (80-98); Monocytes Absolute Auto 1.4 X10*3/uL (0.1-1.2); Monocytes Percent Auto 15.5 % (2-11); Neutrophils Absolute Auto 5.7 X10*3/uL (2.0-8.3); Neutrophils Percent Auto 62.1 % (45-73); Platelet Count 253 X10*3/uL (160-400); Red Blood Count 3.71 X10*6/uL (4.60-5.80); Red Cell Distribution Width 18.8 % (11.0-16.0); White Blood Count 9.2 X10*3/uL (4.8-10.8)
[2021-06-18 06:18] LABS: Anion Gap 13 (12-20); Blood Urea Nitrogen 4 mg/dL (9-16); Calcium 8.1 mg/dL (8.4-10.2); Carbon Dioxide 25 mmol/L (22-29); Chloride 101 mmol/L (96-108); Creatinine Clr Calc Pharmacy 139.7; Estimated Glomerular Filt Rate > 60; Glucose Random 96 mg/dL (60-115); Magnesium 1.7 mg/dL (1.6-2.6); Potassium 3.3 mmol/L (3.3-5.1); Sodium 136 mmol/L (135-145)
[2021-06-18] MEDS: Albuterol/Iprat 2.5/0.5MG 3 ML AMPUL.NEB INHALE ×4 (07:28→20:54)
[2021-06-18] MEDS: Heparin Sodium,Porcine 5,000 UNIT/ML VIAL 5000 UNIT SUBCUT ×2 (08:06→21:25)
[2021-06-18] MEDS: PHENobarbitaL 15 MG TABLET 45 MG PO ×2 (08:06→21:25)
--- NOTE | 2021-06-18 10:19 | MHC.CLN ---
F/U PT EXTUBATED 06/16 DIET RX: REGULAR-APPROPRIATE RECOMMEND ADDING ENSURE BID TO INCREASE KCALS MONITOR PO INTAKE CLOSELY
[2021-06-18] MEDS: levoFLOXacin/D5W 750 MG/150 ML PIGGYBACK 100 MG IV (13:50)
--- NOTE | 2021-06-18 14:01 | P.PNIM_ITS ---
Subjective Subjective Date of Service: 06/18/21 Interval History: the patient was seen and evaluated this morning Laying in bed, feels little anxious but better than before Denies any fever, chills or shortness of breath but still having coughing No reported other overnight events. Systemic review: No fever, chills but reporting anxiety and mild tremors No chest pain, palpitation No shortness of breath reporting coughing No abdominal pain, nausea or vomiting No urinary symptoms No any rash or wounds Physical Exam Vital Signs: Vital Signs: Last Vital Signs Temp 99.1 F 06/18/21 12:00 Pulse 117 H 06/18/21 12:00 Resp 21 H 06/18/21 12:00 BP 121/65 06/18/21 12:00 Pulse Ox 92 06/18/21 12:00 Body Mass Index 27.4 Const: Other: Constitutional : Alert, oriented, mildly anxious and distressed Neck : Normal inspection, Supple Cardiovascular : RRR, S1 S2, no lower extremity edema Respiratory : Decreased bilateral air entry, basal fine crackles, bilateral expiratory wheezes or rhonchi Gastrointestinal: soft, lax, Normal bowel sounds, Non tender Skin : Warm/Dry, No rash Neurological : Alert & oriented x3, No focal deficit Objective Data Current Medications Generic Name Dose Route Start Last Admin Trade Name Freq PRN Reason Stop Dose Admin Acetaminophen 650 mg 06/13/21 01:50 06/17/21 08:08 Acetaminophen 325 Mg Tablet PO 650 mg Q6H PRN Administration Pain, Mild (Pain Scale 1-3) Albuterol Sulfate 2 puff 06/13/21 01:50 Albuterol Sulfate 90 Mcg 8 Gm Inhaler INHALE Q4H PRN wheezing Albuterol/Ipratropium 3 ml 06/16/21 12:00 06/18/21 11:15 Albuterol/Iprat 2.5/0.5mg 3 Ml Ampul.Neb INHALE 3 ml RQ4H WHILE AWAKE MANDY Administration Heparin Sodium (Porcine) 5,000 unit 06/13/21 01:50 06/18/21 08:06 Heparin Sodium,Porcine 5,000 Unit/Ml Vial SUBCUT 5,000 unit BID MANDY Administration Levofloxacin 750 mg in 150 mls @ 100 mls/hr 06/16/21 14:00 06/18/21 13:50 Levaquin IV 100 mls/hr Q24H MANDY Administration Medication 1 each 06/18/21 09:00 No Benzodiazepines MISCELLANE DAILY [facility] Metoprolol Tartrate 5 mg 06/17/21 11:31 06/17/21 12:52 Metoprolol Tartrate 5 Mg/5 Ml Vial IVPUSH 5 mg Q6H PRN Administration hr >120 Ondansetron HCl 4 mg 06/13/21 01:50 Ondansetron Hcl 4 Mg/2 Ml Vial IVPUSH Q8H PRN Nausea and Vomiting Pharmacy Consult 1 each 06/12/21 19:44 Consult Rx Perform Med Rec MISCELLANE ONCE PRN Consult order Phenobarbital 45 mg 06/18/21 09:00 06/18/21 08:06 Phenobarbital 15 Mg Tablet PO 06/19/21 21:01 45 mg BID MANDY Administration Phenobarbital 30 mg 06/20/21 09:00 Phenobarbital 30 Mg Tablet PO 06/21/21 21:01 BID MANDY Phenobarbital 15 mg 06/22/21 09:00 Phenobarbital 15 Mg Tablet PO 06/23/21 09:01 DAILY [facility] Labs CBC & Chem 7: 06/18/21 05:26 06/18/21 05:26 Labs: Laboratory Results - last 24 hr 06/18/21 06/18/21 05:26 05:26 WBC 9.2 RBC 3.71 L Hgb 11.3 L Hct 35.1 L MCV 94.6 MCH 30.5 MCHC 32.2 RDW 18.8 H Plt Count 253 MPV 10.0 Immature Gran % (Auto) 1.7 H Neut % (Auto) 62.1 Lymph % (Auto) 18.4 L [place] % (Auto) 15.5 H Eos % (Auto) 1.5 Baso % (Auto) 0.8 Lymph # (Auto) 1.7 [place] # (Auto) 1.4 H Eos # (Auto) 0.1 Baso # (Auto) 0.1 Abs Immat Gran (auto) 0.16 H Absolute Neuts (auto) 5.7 Absolute Nucleated RBC 0.000 Nucleated RBC % (auto) 0.0 Sodium 136 Potassium 3.3 Chloride 101 Carbon Dioxide 25 Anion Gap 13 BUN 4 L Creatinine 0.68 Estim Creat Clear Calc 139.7 Estimated GFR > 60 Random Glucose 96 Calcium 8.1 L Phosphorus 2.0 L Magnesium 1.7 Albumin 3.0 L Quality Stroke Does the patient have a stroke diagnosis?: No VTE Prior VTE?: No VTE Risk Level:: Medical - moderate - high VTE Device Contraindication: Treatment Not Indicated VTE Drug Contraindication: N/A - Med Ordered Assessment and Plan (1) Acute respiratory failure: Status: Acute (2) Aspiration pneumonia: Status: Acute (3) Elevated LFTs: Status: Acute (4) Alcohol withdrawal seizure: Status: Acute (5) Alcohol abuse with withdrawal: Status: Acute Assessment and Plan: A 40 years old with PMH of severe persistent asthma, bronchiectasis, hyper IgE syndrome, alcohol abuse who presented to the hospital with delirium tremens requiring intubation and ventilation. Downgraded from ICU after being extubated. Acute hypoxic respiratory failure Secondary to aspiration pneumonia Continue to wean down oxygen Negative cultures continue Levaquin Continue bronchodilator nebulizers Acute encephalopathy Secondary to delirium tremens Improving Avoid medications that might alter his mentation Weaned off Precedex Alcohol withdrawal Started on phenobarbital protocol To given extra dose for increased anxiety and higher score on CIWA continue CIWA protocol DVT PPX Heparin
--- NOTE | 2021-06-18 14:39 | MHC.CM.PN ---
Pt has been extubated and is doing well overall. He will [id number] [place], [place] [id number] to the medical floor when bed is available. Met with pt and his girlfriend to review d/c plans. Pt will return to home with information provided by [facility] team on outpt ETOH programs. Pt has transportation
[2021-06-18] MEDS: PHENobarbitaL sodium 130 MG/ML VIAL IM (14:58)
[2021-06-19] VITALS (10 sets, daily range): BP systolic 110–111; BP diastolic 53–75; PULSE 106–128; RESP 13–25; TEMP 36.3–37.2; O2SAT 92–97
[2021-06-19 06:07] LABS: Hematocrit 35.6 % (42-52); Hemoglobin 11.3 g/dl (14.0-18.0); Mean Corpuscular HGB Conc 31.7 g/dl (31.0-36.0); Mean Corpuscular Volume 94.4 fL (80-98); Mean Platelet Volume 10.3 fL (9.4-12.4); Platelet Count 321 X10*3/uL (160-400); Red Blood Count 3.77 X10*6/uL (4.60-5.80); Red Cell Distribution Width 18.7 % (11.0-16.0); White Blood Count 8.7 X10*3/uL (4.8-10.8)
[2021-06-19 06:42] LABS: Anion Gap 12 (12-20); Blood Urea Nitrogen 7 mg/dL (9-16); Calcium 8.5 mg/dL (8.4-10.2); Carbon Dioxide 29 mmol/L (22-29); Chloride 101 mmol/L (96-108); Creatinine Clr Calc Pharmacy 128.3; Estimated Glomerular Filt Rate > 60; Glucose Random 118 mg/dL (60-115); Potassium 3.6 mmol/L (3.3-5.1); Sodium 138 mmol/L (135-145)
[2021-06-19] MEDS: Heparin Sodium,Porcine 5,000 UNIT/ML VIAL 5000 UNIT SUBCUT ×2 (08:12→21:05)
[2021-06-19] MEDS: PHENobarbitaL 15 MG TABLET 45 MG PO ×2 (08:12→21:05)
[2021-06-19 08:59] LABS: Phosphorus 2.6 mg/dL (2.7-4.5)
[2021-06-19] MEDS: Albuterol/Iprat 2.5/0.5MG 3 ML AMPUL.NEB INHALE ×4 (10:01→19:51)
--- NOTE | 2021-06-19 11:31 | HO.PM.IMPN ---
Subjective Subjective Date of Service: 06/19/21 Interval History: seen and examined this AM feels better today compared to yesterday had some withdrawal symptoms yesterday requiring additional phenobarb dosing ROS General - no fevers or chills, +intermittent withdrawal symptoms Cardiovascular - no chest pain Respiratory - no shortness of breath or cough Abdominal- no abdominal pain, nausea, vomiting, diarrhea Physical Exam Vital Signs: Vital Signs: Last Vital Signs Temp 98.9 F 06/19/21 07:48 Pulse 127 H 06/19/21 10:02 Resp 25 H 06/19/21 07:48 BP 111/59 L 06/19/21 07:48 Pulse Ox 93 06/19/21 07:48 Body Mass Index 27.4 Const: Other: General - no acute distress, appears comfortable Cardiovascular - S1S2, tachycardic Lungs - scattered wheezing, no respiratory distress, still requiring o2 Abdomen - soft, nontender, no rebound or guarding Extremities - no edema bilaterally Neuro - awake and alert, no focal deficits Objective Data Current Medications Generic Name Dose Route Start Last Admin Trade Name Henrry PRN Reason Stop Dose Admin Acetaminophen 650 mg 06/13/21 01:50 06/17/21 08:08 Acetaminophen 325 Mg Tablet PO 650 mg Q6H PRN Administration Pain, Mild (Pain Scale 1-3) Albuterol Sulfate 2 puff 06/13/21 01:50 Albuterol Sulfate 90 Mcg 8 Gm Inhaler INHALE Q4H PRN wheezing Albuterol/Ipratropium 3 ml 06/16/21 12:00 06/19/21 10:01 Albuterol/Iprat 2.5/0.5mg 3 Ml Ampul.Neb INHALE 3 ml RQ4H WHILE AWAKE MANDY Administration Heparin Sodium (Porcine) 5,000 unit 06/13/21 01:50 06/19/21 08:12 Heparin Sodium,Porcine 5,000 Unit/Ml Vial SUBCUT 5,000 unit BID MANDY Administration Levofloxacin 750 mg in 150 mls @ 100 mls/hr 06/16/21 14:00 06/18/21 15:20 Levaquin IV Infused Q24H MANDY Infusion Medication 1 each 06/18/21 09:00 No Benzodiazepines MISCELLANE DAILY MANDY Metoprolol Tartrate 5 mg 06/17/21 11:31 06/17/21 12:52 Metoprolol Tartrate 5 Mg/5 Ml Vial IVPUSH 5 mg Q6H PRN Administration hr >120 Ondansetron HCl 4 mg 06/13/21 01:50 Ondansetron Hcl 4 Mg/2 Ml Vial IVPUSH Q8H PRN Nausea and Vomiting Pharmacy Consult 1 each 06/12/21 19:44 Consult Rx Perform Med Rec MISCELLANE ONCE PRN Consult order Phenobarbital 45 mg 06/18/21 09:00 06/19/21 08:12 Phenobarbital 15 Mg Tablet PO 06/19/21 21:01 45 mg BID MANDY Administration Phenobarbital 30 mg 06/20/21 09:00 Phenobarbital 30 Mg Tablet PO 06/21/21 21:01 BID MANDY Phenobarbital 15 mg 06/22/21 09:00 Phenobarbital 15 Mg Tablet PO 06/23/21 09:01 DAILY [facility] Labs CBC & Chem 7: 06/19/21 05:39 06/19/21 05:39 Labs: Laboratory Results - last 24 hr 06/19/21 06/19/21 05:39 05:39 WBC 8.7 RBC 3.77 L Hgb 11.3 L Hct 35.6 L MCV 94.4 MCH 30.0 MCHC 31.7 RDW 18.7 H Plt Count 321 D MPV 10.3 Absolute Nucleated RBC 0.000 Nucleated RBC % (auto) 0.0 Sodium 138 Potassium 3.6 Chloride 101 Carbon Dioxide 29 Anion Gap 12 BUN 7 L D Creatinine 0.74 Estim Creat Clear Calc 128.3 Estimated GFR > 60 Random Glucose 118 H Calcium 8.5 Phosphorus 2.6 L Quality Stroke Does the patient have a stroke diagnosis?: No VTE Prior VTE?: No VTE Risk Level:: Medical - moderate - high VTE Device Contraindication: Treatment Not Indicated VTE Drug Contraindication: N/A - Med Ordered Assessment and Plan (1) Acute respiratory failure: Status: Acute (2) Aspiration pneumonia: Status: Acute (3) Elevated LFTs: Status: Acute (4) Alcohol withdrawal seizure: Status: Acute (5) Alcohol abuse with withdrawal: Status: Acute Assessment and Plan: A 40 years old with PMH of severe persistent asthma, bronchiectasis, hyper IgE syndrome, alcohol abuse who presented to the hospital with delirium tremens requiring intubation and ventilation. Downgraded from ICU after being extubated. Acute hypoxic respiratory failure Secondary to aspiration pneumonia Continue to wean down oxygen - still on 4L Negative cultures continue Levaquin - day #4 Continue bronchodilator nebulizers, add prednisone today repeat cxr today check bnp/d-dimer Acute Toxic/Metabolic encephalopathy Secondary to delirium tremens Improving Avoid medications that might alter his mentation Weaned off Precedex Alcohol withdrawal Started on phenobarbital protocol monitor lytes DVT PPX Heparin
--- NOTE | 2021-06-19 12:00 | MHC.RECOVRN ---
T/w met with pt in 253 after consult placed to CARE Team. Pts significant other, Angela, present during conversation. Pt reports drinking alcohol socially up until October 2020. At this time, pt was laid off for 3 months from [employer] due to COVID. Pt began drinking during the day with friends who were also laid off. Pt has been drinking whiskey, 36 nips as well as 1/2 pint daily. Pts significant other and friends became worried about pt, however, pt did not want to receive tx. Pt reports I wasn't ready until now. The day I came in I woke up and looked in the mirror and my face was so bloated, I didn't look like myself. So I called my friend to bring me to the hospital. I knew if I didn't something bad would have happened that day. Pt reports family hx of addiction, father and uncle have AUD. Pts uncle has been in recovery for 25 years and is very active in AA. Pts significant other has been in recovery x 5 years and does not use any substances. Significant other and friends are very supportive of pt. Pt denies using other substances. Pt states I feel like I want to puke thinking about drinking. This has been a very humbling experience. I'm done. When t/w inquired about ways in which to maintain recovery, pt states I'm very strong willed. I'm never drinking again. Pts significant other, as well as t/w challenged pts statement and encouraged pt to be open to other methods to maintain and support recovery. Pt educated and given resources on [facility], AA, outpatient therapy, as well as medications for AUD. Pt possibly interested in starting naltrexone but would like more time to think about it. Pt will folllow up after d/c if needed. Pt declines referrals for outpatient supports at this time. Pt given t/w card if pt would like to discuss recovery further or for any questions or concerns. T/w available as needed.
[2021-06-19] MEDS: predniSONE 20 MG TABLET 40 MG PO (12:14)
[2021-06-19 12:31] LABS: D Dimer 872 NG/ML
[2021-06-19] MEDS: Omeprazole 20 MG CAPSULE.DR PO (13:49)
[2021-06-19] MEDS: Nicotine Polacrilex Lozenge 2 MG LOZENGE BUCCAL (13:49)
[2021-06-19] MEDS: levoFLOXacin/D5W 750 MG/150 ML PIGGYBACK 100 MG IV (13:50)
--- NOTE | 2021-06-19 14:30 | MHC.CM.PN ---
Addendum entered by Loulou Adorno 06/19/21 14:32: D/C plan is for a return to home with outpt support per CARE team and significant other, Katharina. Original Note: Pt continues in [facility] receiving tx for ETOH w/d. Still with tachycardia and on Phenobarb. ? D/C to home tomorrow. Of note, Pt has [employer] as of 06/12.
[2021-06-19 15:08] LABS: B Type Natriuretic Peptide 16 pg/mL (<100)
[2021-06-19] MEDS: iohexoL 350 MG/ML 100 ML INFUS..BTL IV (18:39)
[2021-06-20] VITALS (10 sets, daily range): BP systolic 96–139; BP diastolic 53–79; PULSE 89–120; RESP 18–34; TEMP 36.1–37.1; O2SAT 87–96
[2021-06-20 05:46] LABS: Hematocrit 34.3 % (42-52); Hemoglobin 10.9 g/dl (14.0-18.0); Mean Corpuscular HGB Conc 31.8 g/dl (31.0-36.0); Mean Corpuscular Hemoglobin 30.4 pg (27.0-33.0); Mean Corpuscular Volume 95.5 fL (80-98); Mean Platelet Volume 10.3 fL (9.4-12.4); Platelet Count 378 X10*3/uL (160-400); Red Blood Count 3.59 X10*6/uL (4.60-5.80); Red Cell Distribution Width 19.1 % (11.0-16.0); White Blood Count 9.1 X10*3/uL (4.8-10.8)
[2021-06-20 06:12] LABS: Anion Gap 11 (12-20); Blood Urea Nitrogen 7 mg/dL (9-16); Calcium 8.8 mg/dL (8.4-10.2); Carbon Dioxide 31 mmol/L (22-29); Chloride 101 mmol/L (96-108); Creatinine Clr Calc Pharmacy 120.2; Estimated Glomerular Filt Rate > 60; Glucose Random 109 mg/dL (60-115); Potassium 3.6 mmol/L (3.3-5.1); Sodium 139 mmol/L (135-145)
[2021-06-20 06:13] LABS: Alanine Aminotransferase 27 U/L (0-40); Albumin Level 3.1 g/dL (3.5-5.0); Alkaline Phosphatase 91 U/L (39-117); Aspartate Amino Transferase 33 U/L (5-37); Bilirubin Direct < 0.2 mg/dL (0.0-0.5); Bilirubin Total 0.4 mg/dL (0.0-1.0); Magnesium 1.8 mg/dL (1.6-2.6); Phosphorus 2.9 mg/dL (2.7-4.5); Total Protein 6.2 g/dL (6.5-8.0)
[2021-06-20] MEDS: Omeprazole 20 MG CAPSULE.DR PO (06:21)
[2021-06-20] MEDS: Albuterol/Iprat 2.5/0.5MG 3 ML AMPUL.NEB INHALE ×3 (08:12→20:29)
[2021-06-20] MEDS: predniSONE 20 MG TABLET 40 MG PO (09:50)
[2021-06-20] MEDS: Heparin Sodium,Porcine 5,000 UNIT/ML VIAL 5000 UNIT SUBCUT ×2 (09:51→20:54)
[2021-06-20] MEDS: PHENobarbitaL 30 MG TABLET PO ×2 (09:51→20:54)
--- NOTE | 2021-06-20 11:59 | MHC.CM.PN ---
Pt with tachycardia and mild hypoxia; workup pending per MD: Original d/c plan was for a return to home: no services: CM to reassess in next 24 hours - pt may benefit from VNA. CM to follow
[2021-06-20] MEDS: methylPREDNISolone Sod Succ 40 MG/ML VIAL IVPUSH ×2 (14:33→20:54)
--- NOTE | 2021-06-20 15:56 | HO.PM.IMPN ---
Subjective Subjective Date of Service: 06/20/21 Interval History: Patient denies palpitation, denies worsening shortness of breath is very frustrated since his oxygenation was stable yesterday on room air 92-94%, and this morning noted to be hypoxic Denies worsening shortness of breath, is coughing and bringing up green phlegm, denies choking or coughing with food, was using tobramycin inhaler at home. ROS General no headache, no dizziness, no fever chills. CVS no chest pain, no palpitation. Respiratory productive cough, no sob. Gastrointestinal no nausea, no vomiting, no abdominal pain Physical Exam Vital Signs: Vital Signs: Last Vital Signs Temp 98.2 F 06/20/21 12:00 Pulse 106 H 06/20/21 12:00 Resp 23 H 06/20/21 12:00 BP 96/53 L 06/20/21 12:00 Pulse Ox 91 L 06/20/21 12:00 Body Mass Index 27.4 General - no acute distress, appears comfortable Cardiovascular - S1S2, tachycardic Lungs - bilateral rhonchi, no respiratory distress Abdomen - soft, nontender, no rebound or guarding Extremities - no edema bilaterally Neuro - awake and alert, no focal deficits Skin no rash Objective Data Current Medications Generic Name Dose Route Start Last Admin Trade Name Freq PRN Reason Stop Dose Admin Acetaminophen 650 mg 06/13/21 01:50 06/17/21 08:08 Acetaminophen 325 Mg Tablet PO 650 mg Q6H PRN Administration Pain, Mild (Pain Scale 1-3) Albuterol Sulfate 2 puff 06/13/21 01:50 Albuterol Sulfate 90 Mcg 8 Gm Inhaler INHALE Q4H PRN wheezing Albuterol/Ipratropium 3 ml 06/16/21 12:00 06/20/21 14:53 Albuterol/Iprat 2.5/0.5mg 3 Ml Ampul.Neb INHALE Not Given RQ4H WHILE AWAKE MANDY Heparin Sodium (Porcine) 5,000 unit 06/13/21 01:50 06/20/21 09:51 Heparin Sodium,Porcine 5,000 Unit/Ml Vial SUBCUT 5,000 unit BID MANDY Administration Levofloxacin 750 mg in 150 mls @ 100 mls/hr 06/16/21 14:00 06/19/21 17:28 Levaquin IV Infused Q24H MANDY Infusion Piperacillin Sod/Tazobactam 50 mls @ 100 mls/hr 06/20/21 16:00 Sod 3.375 gm/ Sodium Chloride IV Q6H MANDY Medication 1 each 06/18/21 09:00 No Benzodiazepines MISCELLANE DAILY [facility] Methylprednisolone Sodium Succinate 40 mg 06/20/21 13:00 06/20/21 14:33 Methylprednisolone Sod Succ 40 Mg/Ml Vial IVPUSH 40 mg Q8H MANDY Administration Nicotine Polacrilex 2 mg 06/19/21 12:24 06/19/21 13:49 Nicotine Polacrilex Lozenge 2 Mg Lozenge BUCCAL 2 mg Q4H PRN Administration Nicotine Cravings Omeprazole 20 mg 06/19/21 12:35 06/20/21 06:21 Omeprazole 20 Mg Capsule. PO 20 mg DAILY@0630 [facility] Administration Ondansetron HCl 4 mg 06/13/21 01:50 Ondansetron Hcl 4 Mg/2 Ml Vial IVPUSH Q8H PRN Nausea and Vomiting Pharmacy Consult 1 each 06/12/21 19:44 Consult Rx Perform Med Rec MISCELLANE ONCE PRN Consult order Phenobarbital 30 mg 06/20/21 09:00 06/20/21 09:51 Phenobarbital 30 Mg Tablet PO 06/21/21 21:01 30 mg BID MANDY Administration Phenobarbital 15 mg 06/22/21 09:00 Phenobarbital 15 Mg Tablet PO 06/23/21 09:01 DAILY [facility] Labs CBC & Chem 7: 06/20/21 05:07 06/20/21 05:07 Labs: Laboratory Results - last 24 hr 06/20/21 06/20/21 06/20/21 05:07 05:07 05:07 WBC 9.1 RBC 3.59 L Hgb 10.9 L Hct 34.3 L MCV 95.5 MCH 30.4 MCHC 31.8 RDW 19.1 H Plt Count 378 MPV 10.3 Absolute Nucleated RBC 0.000 Nucleated RBC % (auto) 0.0 Sodium 139 Potassium 3.6 Chloride 101 Carbon Dioxide 31 H Anion Gap 11 L BUN 7 L Creatinine 0.79 Estim Creat Clear Calc 120.2 Estimated GFR > 60 Random Glucose 109 Calcium 8.8 Phosphorus 2.9 Magnesium 1.8 Total Bilirubin 0.4 Direct Bilirubin < 0.2 AST 33 ALT 27 Alkaline Phosphatase 91 Total Protein 6.2 L Albumin 3.1 L Quality Stroke Does the patient have a stroke diagnosis?: No VTE Prior VTE?: No VTE Risk Level:: Medical - moderate - high VTE Device Contraindication: Treatment Not Indicated VTE Drug Contraindication: N/A - Med Ordered Assessment and Plan (1) Acute respiratory failure: Status: Acute (2) Alcohol abuse with withdrawal: Status: Acute (3) Bronchiectasis: Status: Acute (4) Severe persistent allergic asthma: Status: Acute Assessment and Plan: 40 years old with PMH of severe persistent asthma, bronchiectasis, hyper IgE syndrome, alcohol abuse who presented to the hospital with delirium tremens requiring intubation and ventilation. Downgraded from ICU after being extubated. Acute hypoxic respiratory failure likley Secondary to pneumonia Intermittent hypoxia, denies chest pain no palpitation no worsening shortness of breath however has productive cough with green phlegm with history of bronchiectasis Continue O2 support and gradually wean,continue iv Levaquin day #5 will add IV Zosyn Continue bronchodilator nebulizers, will DC by mouth prednisone and placed on IV Solu Medrol, add cough medication will consult Dr. Penny from pulmonology to discuss bronchoscopy/further treatment option D-dimer 872, CTA showed no evidence of PE, but showed progression of bronchial and parenchymal disease diffuse pathologic lymphadenopathy differential including infectious cause him a inflammatory including atypical infection such as allergic bronchopulmonary aspergillosis, differential also included lymphoma and granulomatous disease Persistent tachycardia likely due to alcohol withdrawal and hypoxia low blood pressure will give IV fluid Acute Toxic/Metabolic encephalopathy Secondary to delirium tremens, improved Avoid medications that might alter his mentation Weaned off Precedex Alcohol withdrawal Continue phenobarbital protocol monitor lytes DVT PPX Heparin
[2021-06-20] MEDS: levoFLOXacin/D5W 750 MG/150 ML PIGGYBACK 100 MG IV (16:33)
[2021-06-20] MEDS: Piperacillin Sodium/Tazobactam 3.375 GM in 0.9 % Sodium Chloride 50 ML IV ×2 (16:33→20:54)
[2021-06-20] MEDS: guaiFENesin DM 100/10/5 ML 5 ML SYRUP 10 ML PO ×2 (16:39→23:40)
[2021-06-20] MEDS: Nicotine Polacrilex Lozenge 2 MG LOZENGE BUCCAL (16:40)
[2021-06-20] MEDS: Lactated Ringers 1,000 ML 80 ML IVCONT (16:51)
[2021-06-21] VITALS (10 sets, daily range): BP systolic 94–125; BP diastolic 51–75; PULSE 80–125; RESP 18–20; TEMP 36.4–37.5; O2SAT 90–95
[2021-06-21] MEDS: Piperacillin Sodium/Tazobactam 3.375 GM in 0.9 % Sodium Chloride 50 ML IV ×4 (03:06→20:53)
[2021-06-21] MEDS: Omeprazole 20 MG CAPSULE.DR PO (05:21)
[2021-06-21] MEDS: methylPREDNISolone Sod Succ 40 MG/ML VIAL IVPUSH ×3 (05:21→20:53)
[2021-06-21] MEDS: guaiFENesin DM 100/10/5 ML 5 ML SYRUP 10 ML PO ×3 (05:21→17:47)
[2021-06-21] MEDS: Lactated Ringers 1,000 ML 80 ML IVCONT (05:24)
--- NOTE | 2021-06-21 08:42 | P.PNIM_ITS ---
Subjective Subjective Date of Service: 06/21/21 Interval History: Acute hypoxic respiratory failure reyes Secondary to pneumonia Review of Systems Patient shortness of breath is improving, still has some tremors, denies any chest pain or abdominal pain or cough or phlegm. Physical Exam Vital Signs: Vital Signs: Last Vital Signs Temp 99.5 F 06/21/21 08:00 Pulse 125 H 06/21/21 08:00 Resp 20 06/21/21 08:00 BP 121/75 06/21/21 08:00 Pulse Ox 92 06/21/21 08:00 Body Mass Index 27.4 Physical exam: Cvs: rrr, [id number] , no murmur res: clear to auscultation ,no rhonchii or wheezing abd: no rebound or guarding ,nt, bs present. ext pulses present , no cyanosis neuro: axo3 , nonfocal. Objective Data Current Medications Generic Name Dose Route Start Last Admin Trade Name Freq PRN Reason Stop Dose Admin Acetaminophen 650 mg 06/13/21 01:50 06/17/21 08:08 Acetaminophen 325 Mg Tablet PO 650 mg Q6H PRN Administration Pain, Mild (Pain Scale 1-3) Albuterol Sulfate 2 puff 06/13/21 01:50 Albuterol Sulfate 90 Mcg 8 Gm Inhaler INHALE Q4H PRN wheezing Albuterol/Ipratropium 3 ml 06/16/21 12:00 06/20/21 20:29 Albuterol/Iprat 2.5/0.5mg 3 Ml Ampul.Neb INHALE 3 ml RQ4H WHILE AWAKE MANDY Administration Guaifenesin/Dextromethorphan 10 ml 06/20/21 18:00 06/21/21 05:21 Guaifenesin Dm 100/10/5 Ml 5 Ml Syrup PO 10 ml Q6H MANDY Administration Heparin Sodium (Porcine) 5,000 unit 06/13/21 01:50 06/20/21 20:54 Heparin Sodium,Porcine 5,000 Unit/Ml Vial SUBCUT 5,000 unit BID MANDY Administration Levofloxacin 750 mg in 150 mls @ 100 mls/hr 06/16/21 14:00 06/20/21 18:42 Levaquin IV Infused Q24H MANDY Infusion Piperacillin Sod/Tazobactam 50 mls @ 100 mls/hr 06/20/21 16:00 06/21/21 03:54 Sod 3.375 gm/ Sodium Chloride IV Infused Q6H [facility] Infusion Medication 1 each 06/18/21 09:00 No Benzodiazepines MISCELLANE DAILY MANDY Methylprednisolone Sodium Succinate 40 mg 06/20/21 13:00 06/21/21 05:21 Methylprednisolone Sod Succ 40 Mg/Ml Vial IVPUSH 40 mg Q8H MANDY Administration Nicotine Polacrilex 2 mg 06/19/21 12:24 06/20/21 16:40 Nicotine Polacrilex Lozenge 2 Mg Lozenge BUCCAL 2 mg Q4H PRN Administration Nicotine Cravings Omeprazole 20 mg 06/19/21 12:35 06/21/21 05:21 Omeprazole 20 Mg Capsule.Dr PO 20 mg DAILY@0630 [facility] Administration Ondansetron HCl 4 mg 06/13/21 01:50 Ondansetron Hcl 4 Mg/2 Ml Vial IVPUSH Q8H PRN Nausea and Vomiting Pharmacy Consult 1 each 06/12/21 19:44 Consult Rx Perform Med Rec MISCELLANE ONCE PRN Consult order Phenobarbital 30 mg 06/20/21 09:00 06/20/21 20:54 Phenobarbital 30 Mg Tablet PO 06/21/21 21:01 30 mg BID MANDY Administration Phenobarbital 15 mg 06/22/21 09:00 Phenobarbital 15 Mg Tablet PO 06/23/21 09:01 DAILY [facility] Labs CBC & Chem 7: 06/20/21 05:07 06/20/21 05:07 Quality Stroke Does the patient have a stroke diagnosis?: No VTE Prior VTE?: No VTE Risk Level:: Medical - moderate - high VTE Device Contraindication: Treatment Not Indicated VTE Drug Contraindication: N/A - Med Ordered Assessment and Plan (1) Aspiration pneumonia: Status: Acute (2) Acute respiratory failure: Status: Acute Assessment and Plan: 40 years old with PMH of severe persistent asthma, bronchiectasis, hyper IgE syndrome, alcohol abuse who presented to the hospital with delirium tremens requiring intubation and ventilation. Downgraded from ICU after being extubated. Acute hypoxic respiratory failure likley Secondary to pneumonia, asthma /copd exceerbation: Intermittent hypoxia, denies chest pain no palpitation no worsening shortness of breath however has productive cough with green phlegm with history of bronchiectasis D-dimer 872, CTA showed no evidence of PE, but showed progression of bronchial and parenchymal disease diffuse pathologic lymphadenopathy differential including infectious cause him a inflammatory including atypical infection such as allergic bronchopulmonary aspergillosis, differential also included lymphoma and granulomatous disease. pulm eval pending Persistent tachycardia likely due to alcohol withdrawal and hypoxia: improving with fluids Acute Toxic/Metabolic encephalopathy Secondary to delirium tremens, improved Avoid medications that might alter his mentation Weaned off Precedex Alcohol withdrawal Continue phenobarbital protocol monitor lytes
[2021-06-21] MEDS: Albuterol/Iprat 2.5/0.5MG 3 ML AMPUL.NEB INHALE ×3 (08:44→16:05)
[2021-06-21] MEDS: PHENobarbitaL 30 MG TABLET PO ×2 (09:22→20:53)
[2021-06-21] MEDS: Heparin Sodium,Porcine 5,000 UNIT/ML VIAL 5000 UNIT SUBCUT ×2 (09:23→20:53)
--- NOTE | 2021-06-21 10:03 | PM.CNPUL ---
History of Present Illness History of Present Illness Consult date: 06/21/21 Requesting physician: Manuel Edouard Reason for consult: dyspnea, COPD and pneumonia Chief complaint: Alcohol withdrawal seizure Narrative: This 40 years old gentleman, admitted this time on 06/13 with the acute alcoholic intoxication, Complicated by pneumonia and respiratory failure, requiring intubation and vent support. He is post extubation and being managed on the intermediate care. Patient does not have any significant withdrawal symptoms at this time. Currently he remains afebrile, states that his breathing is at baseline, he has usual chronic cough, not much expectoration at this time. Denies any chest pain and denies any respiratory distress. He is not requiring oxygen. Patient has been on Levaquin as well as Zosyn since admission. Blood cultures time 2 did not grow any specific bacteria. His past pulmonary history is well documented. He has been a heavy smoker, has history of asthma/COPD overlap syndrome, with hyper IgE level. He also has advanced bilateral is a slim trickle bronchiectasis, with past history of Pseudomonas infection. His past to endobronchial cultures have been negative for atypical mycobacterium infection. In addition to his usual management for COPD, he has also used flutter well what home, and he has been on nebulized NEBCIN , and on alternate months. Earlier this year was started on Xolair with some improvement but after 2 cycles it was not approved by his insurance. In addition to all this he continued to smoke. Review of systems the, is negative except for what is described above. Review of Systems Review of Systems: Yes all other systems are reviewed and are negative Neurologic: Reports Abnormal speech present [facility] Past Medical History Medical History Lung disease Pleuritic chest pain Social History Social History Household Members: Unknown / Unable to assess Housing: Unknown / Unable to assess Unable to assess alcohol history related to: Unable to respond Alcohol intake: current Alcohol type: hard liquor Patient Tobacco Use Status: Current everyday Tobacco user Tobacco use type: Cigarette Years Smoked: 19 yrs Use of substances other than those prescribed or required for medical reasons: Unable to respond Substance Use Type: Unknown Last Used Substance: Unknown Currently Displaying Signs/Symptoms of Drug Intoxication Withdrawal: No Spiritual Healthcare Practices: unknown [facility] Practices: unknown Cultural Healthcare Practices: unknown Advance Directives: No Advance Directives Information Provided: Yes Do you have thoughts of harming others: None Do you have a plan to hurt others: No Plan Recently lost weight without trying: Unsure service: No Current occupational status: unemployed Meds Allergies Allergy/AdvReac Type Severity Reaction Status Date / Time clonazepam [CLONAZEPAM] Allergy Severe ERRATIC Verified 06/02/21 15:26 BEHAVIOR, AND RAGE. Active Medications: Current Medications Generic Name Dose Route Start Last Admin Trade Name Freq PRN Reason Stop Dose Admin Acetaminophen 650 mg 06/13/21 01:50 06/17/21 08:08 Acetaminophen 325 Mg Tablet PO 650 mg Q6H PRN Administration Pain, Mild (Pain Scale 1-3) Albuterol Sulfate 2 puff 06/13/21 01:50 Albuterol Sulfate 90 Mcg 8 Gm Inhaler INHALE Q4H PRN wheezing Albuterol/Ipratropium 3 ml 06/16/21 12:00 06/21/21 08:44 Albuterol/Iprat 2.5/0.5mg 3 Ml Ampul.Neb INHALE 3 ml RQ4H WHILE AWAKE MANDY Administration Guaifenesin/Dextromethorphan 10 ml 06/20/21 18:00 06/21/21 05:21 Guaifenesin Dm 100/10/5 Ml 5 Ml Syrup PO 10 ml Q6H MANDY Administration Heparin Sodium (Porcine) 5,000 unit 06/13/21 01:50 06/21/21 09:23 Heparin Sodium,Porcine 5,000 Unit/Ml Vial SUBCUT 5,000 unit BID MANDY Administration Levofloxacin 750 mg in 150 mls @ 100 mls/hr 06/16/21 14:00 06/20/21 18:42 Levaquin IV Infused Q24H MANDY Infusion Piperacillin Sod/Tazobactam 50 mls @ 100 mls/hr 06/20/21 16:00 06/21/21 09:23 Sod 3.375 gm/ Sodium Chloride IV 100 mls/hr Q6H MANDY Administration Medication 1 each 06/18/21 09:00 No Benzodiazepines MISCELLANE DAILY MANDY Methylprednisolone Sodium Succinate 40 mg 06/20/21 13:00 06/21/21 05:21 Methylprednisolone Sod Succ 40 Mg/Ml Vial IVPUSH 40 mg Q8H MANDY Administration Nicotine Polacrilex 2 mg 06/19/21 12:24 06/20/21 16:40 Nicotine Polacrilex Lozenge 2 Mg Lozenge BUCCAL 2 mg Q4H PRN Administration Nicotine Cravings Omeprazole 20 mg 06/19/21 12:35 06/21/21 05:21 Omeprazole 20 Mg Capsule. PO 20 mg DAILY@0630 MANDY Administration Ondansetron HCl 4 mg 06/13/21 01:50 Ondansetron Hcl 4 Mg/2 Ml Vial IVPUSH Q8H PRN Nausea and Vomiting Pharmacy Consult 1 each 06/12/21 19:44 Consult Rx Perform Med Rec MISCELLANE ONCE PRN Consult order Phenobarbital 30 mg 06/20/21 09:00 06/21/21 09:22 Phenobarbital 30 Mg Tablet PO 06/21/21 21:01 30 mg BID MANDY Administration Phenobarbital 15 mg 06/22/21 09:00 Phenobarbital 15 Mg Tablet PO 06/23/21 09:01 DAILY [facility] Home Medications Medication Instructions Recorded Confirmed Last Taken Type albuterol sulfate 90 mcg/actuation 2 puff INHALATION Q4H PRN 11/03/20 06/12/21 Unknown History aerosol inhaler ipratropium 0.5 mg-albuterol 3 mg 3 ml INHALATION TID PRN 11/03/20 06/12/21 Unknown History (2.5 mg base)/3 mL nebulization soln Physical Exam Vital Signs: Vital Signs: Last Vital Signs Temp 99.5 F 06/21/21 08:00 Pulse 111 H 06/21/21 08:44 Resp 20 06/21/21 08:00 BP 121/75 06/21/21 08:00 Pulse Ox 92 06/21/21 08:00 Body Mass Index 27.4 Const: General: comfortable, no acute distress, alert and awake Orientation/consciousness: patient oriented x3 HENMT: Head: Yes normal to inspection General nose exam: No nasal polyps present and No nasal discharge present Face and sinus: Yes sinuses nontender Mouth: oropharynx normal Throat: Yes posterior oropharynx normal Eyes: General: appearance normal, both eyes and all related structures Neck: Neck: Yes normal visual inspection, Yes no lymphadenopathy, Yes trachea midline and Yes no JVD Thyroid: Thyroid normal Chest: Chest palpation & inspection: normal inspection of the chest, normal palpation of entire chest wall and no tenderness Resp: Other: He does have good aeration of both sides, breath sounds are generally diminished and with prolonged expiratory phase. End inspiratory crepitations heard, over upper and lower lobes, especially posteriorly. Cardio: Palpation: normal PMI Rate: regular rate Rhythm: regular rhythm Heart sounds: no gallops and no murmurs Peripheral pulses: Peripheral pulses 2+ throughout GI: Palpation (GI): Soft to palpation, nontender, No hepatosplenomegaly present and no masses Auscultation: normal bowel sounds Back/Spine/Pelvis: Thoracic/Lumbar Spine: thoracic and lumbar spine normal to inspection Skin: General skin exam: no rashes or lesions noted Neuro: General: patient oriented x3 and no focal motor deficits Cranial nerves: Yes CN's II-XII intact bilaterally Speech: Abnormal speech present Extrem: General: Yes normal to inspection, Yes no clubbing, cyanosis or edema and Yes no calf tenderness Psych: Appearance: grossly normal Speech and movement: Normal speech and movement present Results Laboratory Findings CBC and BMP: 06/20/21 05:07 06/20/21 05:07 ABG, PT/INR, D-dimer: PT/INR, D-dimer D-Dimer 872 NG/ML 06/19/21 11:44 Abnormal lab findings: Abnormal Labs 06/12/21 06/12/21 06/12/21 18:24 18:24 23:46 WBC 15.2 H RBC 4.49 L Hgb 13.5 L Hct 41.1 L RDW 19.1 H Plt Count Immature Gran % (Auto) 0.9 H Neut % (Auto) 77.5 H Lymph % (Auto) 11.[address] [facility] % (Auto) [facility] # (Auto) 1.3 H Abs Immat Gran (auto) 0.14 H Absolute Neuts (auto) 11.8 H VBG pH VBG HCO3 Carbon Dioxide Anion Gap BUN 17 H Random Glucose Calcium Phosphorus Magnesium AST 89 H ALT 64 H Alkaline Phosphatase 128 H Total Protein Albumin Ur Barbiturates Screen POSITIVE H 06/13/21 06/13/21 06/13/21 06:33 06:33 08:25 WBC 11.6 H RBC 3.87 L 3.58 L Hgb 11.8 L 10.9 L Hct 36.5 L 34.2 L RDW 19.7 H 19.4 H Plt Count 129 L D 119 L Immature Gran % (Auto) 0.8 H 0.8 H Neut % (Auto) 76.5 H Lymph % (Auto) 13.[address] [facility] % (Auto) [facility] # (Auto) Abs Immat Gran (auto) 0.09 H 0.07 H Absolute Neuts (auto) VBG pH VBG HCO3 Carbon Dioxide Anion Gap BUN Random Glucose Calcium 7.7 L D Phosphorus 2.4 L Magnesium 1.5 L AST 98 H ALT 57 H Alkaline Phosphatase Total Protein Albumin 3.3 L Ur Barbiturates Screen 06/14/21 06/14/21 06/14/21 05:24 05:25 05:25 WBC RBC 3.70 L Hgb 11.2 L Hct 35.8 L RDW 18.9 H Plt Count 138 L Immature Gran % (Auto) 0.7 H Neut % (Auto) 73.2 H Lymph % (Auto) 15.[address] [facility] % (Auto) [facility] # (Auto) Abs Immat Gran (auto) 0.07 H Absolute Neuts (auto) VBG pH 7.45 H VBG HCO3 Carbon Dioxide Anion Gap BUN Random Glucose Calcium 7.8 L Phosphorus Magnesium AST 72 H ALT 55 H Alkaline Phosphatase Total Protein 5.9 L Albumin 2.8 L Ur Barbiturates Screen 06/15/21 06/15/21 06/15/21 05:25 05:25 05:27 WBC RBC 4.05 L Hgb 12.4 L Hct 38.6 L RDW 18.8 H Plt Count Immature Gran % (Auto) 1.4 H Neut % (Auto) Lymph % (Auto) 17.[address] [facility] % (Auto) [facility] # (Auto) Abs Immat Gran (auto) 0.14 H Absolute Neuts (auto) VBG pH 7.46 H VBG HCO3 27 H Carbon Dioxide Anion Gap BUN 7 L Random Glucose Calcium 7.8 L Phosphorus Magnesium AST ALT Alkaline Phosphatase Total Protein Albumin 2.7 L Ur Barbiturates Screen 06/16/21 06/16/21 06/16/21 05:13 05:15 05:15 WBC RBC 3.93 L Hgb 12.1 L Hct 37.1 L RDW 19.0 H Plt Count Immature Gran % (Auto) 2.4 H Neut % (Auto) Lymph % (Auto) 17.[address] [facility] % (Auto) 13.[address] [facility] # (Auto) Abs Immat Gran (auto) 0.22 H Absolute Neuts (auto) VBG pH 7.50 H VBG HCO3 Carbon Dioxide Anion Gap BUN 5 L Random Glucose Calcium 7.6 L Phosphorus Magnesium AST ALT Alkaline Phosphatase Total Protein Albumin 2.7 L Ur Barbiturates Screen 06/17/21 06/17/21 06/17/21 05:28 05:28 05:30 WBC RBC 3.53 L Hgb 10.7 L Hct 33.5 L RDW 19.0 H Plt Count Immature Gran % (Auto) 1.3 H Neut % (Auto) Lymph % (Auto) 15.[address] [facility] % (Auto) 15.[address] [facility] # (Auto) 1.6 H Abs Immat Gran (auto) 0.14 H Absolute Neuts (auto) VBG pH 7.51 H VBG HCO3 27 H Carbon Dioxide Anion Gap BUN 6 L Random Glucose Calcium 7.8 L Phosphorus 2.2 L Magnesium AST 38 H D ALT Alkaline Phosphatase Total Protein 5.7 L Albumin 2.8 L Ur Barbiturates Screen 06/18/21 06/18/21 06/19/21 05:26 05:26 05:39 WBC RBC 3.71 L 3.77 L Hgb 11.3 L 11.3 L Hct 35.1 L 35.6 L RDW 18.8 H 18.7 H Plt Count Immature Gran % (Auto) 1.7 H Neut % (Auto) Lymph % (Auto) 18.[address] [facility] % (Auto) 15.[address] [facility] # (Auto) 1.4 H Abs Immat Gran (auto) 0.16 H Absolute Neuts (auto) VBG pH VBG HCO3 Carbon Dioxide Anion Gap BUN 4 L Random Glucose Calcium 8.1 L Phosphorus 2.0 L Magnesium AST ALT Alkaline Phosphatase Total Protein Albumin 3.0 L Ur Barbiturates Screen 06/19/21 06/20/21 06/20/21 05:39 05:07 05:07 WBC RBC 3.59 L Hgb 10.9 L Hct 34.3 L RDW 19.1 H Plt Count Immature Gran % (Auto) Neut % (Auto) Lymph % (Auto) [facility] % (Auto) [facility] # (Auto) Abs Immat Gran (auto) Absolute Neuts (auto) VBG pH VBG HCO3 Carbon Dioxide 31 H Anion Gap 11 L BUN 7 L D 7 L Random Glucose 118 H Calcium Phosphorus 2.6 L Magnesium AST ALT Alkaline Phosphatase Total Protein Albumin Ur Barbiturates Screen 06/20/21 05:07 WBC RBC Hgb Hct RDW Plt Count Immature Gran % (Auto) Neut % (Auto) Lymph % (Auto) [facility] % (Auto) [facility] # (Auto) Abs Immat Gran (auto) Absolute Neuts (auto) VBG pH VBG HCO3 Carbon Dioxide Anion Gap BUN Random Glucose Calcium Phosphorus Magnesium AST ALT Alkaline Phosphatase Total Protein 6.2 L Albumin 3.1 L Ur Barbiturates Screen Assessment and Plan (1) Alcohol abuse with withdrawal: Status: Acute The main reason for his admission was acute alcohol intoxication, followed by withdrawal. He seems to have done well and is back to his baseline. (2) Bronchiectasis: Qualifiers: Bronchiectasis type: with acute lower respiratory infection Qualified Code(s): J47.0 - Bronchiectasis with acute lower respiratory infection Status: Acute Patient is a known case of advanced and extensive slit and recall bronchiectasis, he is prone to have recurrent respiratory infections especially Pseudomonas. At home he is on a program of 0 nebulized broad-spectrum antibiotic 1 month on and 1 month off, that will be continued. (3) Elevated IgE level: Status: Acute (4) Severe persistent allergic asthma: Status: Acute Patient is known case of asthma/COPD overlap syndrome, hyper allergic type, with high E IgE level. He needs to be restarted on Xolair, which will be arranged as outpatient. At present being treated for acute exacerbation with IV Solu-Medrol. I recommend that we can change IV Solu-Medrol to prednisone 40 mg p.o. wean off by 10 mg per week. He should continue DuoNeb updrafts Q 6 hours at home . (5) Aspiration pneumonia: Status: Acute Patient treated for possible aspiration pneumonia, he has completed his course of Levaquin and Zosyn. I think antibiotics can be discontinued at this time. (6) Acute respiratory failure: Status: Acute Patient was treated for acute respiratory failure and has now a improved, does not need oxygen. Procedures Date of Service Date of Service: 06/21/21
[2021-06-21] MEDS: levoFLOXacin/D5W 750 MG/150 ML PIGGYBACK 100 MG IV (12:49)
[2021-06-22] VITALS (7 sets, daily range): BP systolic 95–128; BP diastolic 61–65; PULSE 89–105; RESP 18–20; TEMP 36.2–36.6; O2SAT 92–98
[2021-06-22] MEDS: Piperacillin Sodium/Tazobactam 3.375 GM in 0.9 % Sodium Chloride 50 ML IV ×2 (05:26→08:56)
[2021-06-22] MEDS: Omeprazole 20 MG CAPSULE.DR PO (05:26)
[2021-06-22] MEDS: methylPREDNISolone Sod Succ 40 MG/ML VIAL IVPUSH (05:26)
[2021-06-22] MEDS: guaiFENesin DM 100/10/5 ML 5 ML SYRUP 10 ML PO (05:26)
[2021-06-22] MEDS: Albuterol/Iprat 2.5/0.5MG 3 ML AMPUL.NEB INHALE ×2 (07:16→11:13)
[2021-06-22] MEDS: Heparin Sodium,Porcine 5,000 UNIT/ML VIAL 5000 UNIT SUBCUT (08:55)
[2021-06-22] MEDS: PHENobarbitaL 15 MG TABLET PO (08:56)
--- NOTE | 2021-06-22 12:38 | MHC.CM.PN ---
Patient has been medically cleared for dc to [facility], today, no services. By the time CM got to the room to address the IMM, Patient had already left the hospital.
--- NOTE | 2021-08-27 13:39 | P.DS_ITS ---
DS: Providers Provider Date of Service: 06/22/21 Date of admission: 06/12/21 21:26 Date of discharge: 06/22/21 Primary care physician: Mehul Scruggs MD Consults: 06/18/21 11:25 Consult to Care Team Routine Comment: Reason for consultation: Alcohol abuse 06/20/21 13:20 Consult to Pulmonology Routine Consulting Provider: Javan Penny Reason for consultation: bronchiectasis persistenyt hypoxia Has provider been notified: No DS: Diagnosis Discharge Diagnosis (1) Aspiration pneumonia: Status: Acute (2) Acute respiratory failure: Status: Acute DS: Summary Hospital Course Hospital Course: 40-year-old male with no significant past medical history except alcohol abuse who presents to the hospital stating that he wants detox for alcohol and that he is in alcohol withdrawal.? Patient drinks about 30-40 shots of whiskey daily, his last drink was this a.m..? He experienced alcohol withdrawal seizure last night after the alcohol store closed and he did not get a chance to by alcohol in time.? He eventually was able to buy some this morning and his last drink was this a.m.Patient reports nausea, vomiting, no headache, no change in vision, no chest pain, he is tremulous, complaining of visual hallucinations. Patient has no urinary symptoms and no lower extremity edema. Of note patient was seen in the hospital on 06/02 and diagnosed with pneumonia at that time and started on antibiotics, patient compliant with his levofloxacin and has 2 more days left on that.? He denies any cough, no shortness of breath at this time. On arrival to the ED patient hemodynamically stable with vital signs significant for heart rate of 135, respiratory rate of 24, blood pressure 129/87, satting 88% on room air.? Lab significant for WBC count of 15.2, hemoglobin of 13.5, alcohol level of to 248. Labs otherwise on remarkable Patient received multiple rounds of Ativan, started on high dose of phenobarb but continues to be agitated, tachycardic, hypertensive, with so score above 16. Patient received an extra dose of Ativan, Haldol as well as Benadryl with continuous elevated CIWA score tachycardia and agitation.? Patient was initially admitted to our service foot will be transferred to ICU due to severe alcohol withdrawal. hospital course: Patient admitted to the hospital because of toxic metabolic encephalopathy, COPD / bronchiectasis, alcohol withdrawal: Patient initially was in ICU due to delirium tremens requiring at intubation and ventilation-seems improved afterwards and is metabolic encephalopathy seems to be improved significantly, also COPD/bronchiectasis he improved-with nebs, steroids, antibiotics, cta - negative for pulmonary embolism : Seems improving, seen by Pulmonary recommended to patient to go home with prednisone taper weekly, please follow-up with the Pulmonary out patiently. Above management discussed with the patient in detail length he understand and in agreement with the above plan, time spent 50 minutes and 50% time spent on counseling. Significant findings: As above. Procedures performed: None. Treatment and response: As above. Complications: None. Time Spent with Patient Time attestation: Total time spent providing and/or coordinating discharge services: Discharge coordination time: Greater than 30 minutes Quality: Stroke Does the patient have a stroke diagnosis?: No Physical Exam Vital Signs: Vital Signs: Last Vital Signs Temp 97.3 F 06/22/21 11:19 Pulse 89 06/22/21 11:19 Resp 20 06/22/21 11:19 BP 95/62 06/22/21 11:19 Pulse Ox 98 06/22/21 11:19 Body Mass Index 27.4 Appearance:? not in distress.? Eyes: Pupils equal, round and reactive to light.? Sclera nonicteric.? ENT: Pharynx normal.? Moist mucous membranes. cvs: rrr, [id number] , no murmur res: clear to auscultation ,no rhonchii or wheezing abd: no rebound or guarding ,nt, bs present. ext pulses present , no cyanosis ,Gait well balanced well coordinated. neuro: axo3 , nonfocal. DS: Data Data Completed and Pending Completed studies during hospitalization [Text1]: Procedures Detoxification Services for Substance Abuse Treatment (06/12/21) Insertion of Endotracheal Airway into Trachea, Via Natural or Artificial Opening (06/12/21) Respiratory Ventilation, 24-96 Consecutive Hours (06/12/21) Discharge Plan Discharge Patient Disposition: Home, Self-Care Discharge Diagnosis: Acute hypoxic respiratory failure likley Secondary to pneumonia, acute toxic/metabolic encephalopathy. Alcohol withdrawal Referrals: Mehul Scruggs MD [Primary Care Provider] - 1 Week Discharge Medications: New omeprazole 20 mg Capsule,Delayed Release(Dr/Ec) 20 mg PO DAILY@0630 Qty: 30 RF: 0 prednisone 10 mg tablet See Taper mg PO DAILY Qty: 60 RF: 0 Continued ipratropium-albuterol 0.5 mg-3 mg(2.5 mg base)/3 mL solution for nebulization 3 ml inhalation TID PRN (Reason: Shortness Of Breath) 30 Days Qty: 270 RF: 6 Discontinued levofloxacin 750 mg tablet 750 mg PO DAILY 10 Days Qty: 10 RF: 0 No Action albuterol sulfate [Ventolin HFA] 90 mcg/actuation HFA aerosol inhaler 2 puff inhalation Q4H PRN (Reason: wheezing) 30 Days Qty: 18 RF: 6 Breo Ellipta 200-25 mcg/dose blister with device 1 inh inhalation DAILY 30 Days Qty: 1 RF: 6 Discharge Orders: Discharge Order (Routine); Ordered 06/22/21 Ordered By: Maida Freed Diet: advance to usual diet Activity on Discharge: As tolerated Stand Alone Forms: Patient Portal Discharge page Care Plan Goals: Patient admitted to the hospital because of toxic metabolic encephalopathy, COPD / bronchiectasis, alcohol withdrawal: Patient initially was in ICU due to delirium tremens requiring at intubation and ventilation-seems improved afterwards and is metabolic encephalopathy seems to be improved significantly, also COPD/bronchiectasis he improved-with nebs, steroids, antibiotics: Seems improving, seen by Pulmonary recommended to patient to go home with prednisone taper weekly, please follow-up with the Pulmonary out patiently. Health Concerns: As above. Plan of Treatment: As above. Assessment: As above. Discharge Date/Time: 06/22/21 14:17
== END 2021-06-22 14:17 | disposition home or self-care (01) | DRG 208 ==
LOC: HO.ED 19:39 → HO.EDOVER 21:38 → HO.ICU 06-13 06:38 → HO.IMC 06-20 17:46
PROVIDERS: Family Medicine; Internal Medicine Pulmonary Disease; Registered Nurse Community Health; Student in an Organized Health Care Education/Training Program; Admitting Provider Internal Medicine; Emergency Provider Emergency Medicine Emergency Medical Services; PCP Internal Medicine; Visit Provider Internal Medicine
DX: J69.0 Pneumonitis due to inhalation of food and vomit (principal); J96.01 Acute respiratory failure with hypoxia; G92 Toxic encephalopathy; F10.131 Alcohol abuse with withdrawal delirium; J45.51 Severe persistent asthma with (acute) exacerbation; J47.1 Bronchiectasis with (acute) exacerbation; F10.121 Alcohol abuse with intoxication delirium; R56.9 Unspecified convulsions; Z20.822 Contact with and (suspected) exposure to COVID-19; Y90.8 Blood alcohol level of 240 mg/100 ml or more; D72.829 Elevated white blood cell count, unspecified; F17.210 Nicotine dependence, cigarettes, uncomplicated; Z71.6 Tobacco abuse counseling; Z79.51 Long term (current) use of inhaled steroids; Z79.52 Long term (current) use of systemic steroids; Z79.899 Other long term (current) drug therapy
CPT/HCPCS: 36415; 71045; 71046; 71275; 80048; 80053; 80076; 80307; 82040; 82077; 82803; 82947; 83690; 83735; 83880; 84100; 85025; 85027; 85379; 87635; 93005; 94002; 94003; 94640; 94799; 99285; J0295; J1200; J1956; J2060; J2250; J2405; J2543; J2560; J2920; J3411; J3475; Q9967

== ENCOUNTER → 2021-06-28 12:49 | Outpatient (BNVA) | payer MEDICARE, MEDICAID, SELFPAY | PROVIDERS: PCP Internal Medicine; Visit Provider Internal Medicine Pulmonary Disease | DX: J47.9 Bronchiectasis, uncomplicated (principal); J45.50 Severe persistent asthma, uncomplicated; R76.8 Other specified abnormal immunological findings in serum; F17.210 Nicotine dependence, cigarettes, uncomplicated | CPT/HCPCS: 99212 ==

== ENCOUNTER → 2021-11-14 15:55 | Outpatient (BNVA) | payer MEDICARE, MEDICAID, SELFPAY | PROVIDERS: PCP Internal Medicine; Visit Provider Internal Medicine Pulmonary Disease | DX: J45.50 Severe persistent asthma, uncomplicated (principal); J47.0 Bronchiectasis with acute lower respiratory infection | CPT/HCPCS: 99212 ==

== ENCOUNTER → 2022-03-04 13:07 | Outpatient (BNVA) | payer MEDICARE, MEDICAID, SELFPAY | PROVIDERS: PCP Internal Medicine; Visit Provider Internal Medicine Pulmonary Disease | DX: J45.50 Severe persistent asthma, uncomplicated (principal); J47.0 Bronchiectasis with acute lower respiratory infection; R76.8 Other specified abnormal immunological findings in serum; Z79.899 Other long term (current) drug therapy | CPT/HCPCS: 99212 ==

== ENCOUNTER → 2022-03-08 10:56 | Outpatient (BNVA) | payer MEDICARE, MEDICAID, SELFPAY | PROVIDERS: PCP Internal Medicine; Visit Provider Internal Medicine Pulmonary Disease | DX: J45.50 Severe persistent asthma, uncomplicated (principal) | CPT/HCPCS: 99211 ==

== ENCOUNTER → 2022-10-02 14:49 | Outpatient (BNVA) | payer MEDICARE, MEDICAID, SELFPAY | PROVIDERS: PCP Internal Medicine; Visit Provider Internal Medicine Pulmonary Disease | DX: J47.0 Bronchiectasis with acute lower respiratory infection (principal); J45.50 Severe persistent asthma, uncomplicated; R76.8 Other specified abnormal immunological findings in serum; Z79.899 Other long term (current) drug therapy | CPT/HCPCS: 99212 ==

== ENCOUNTER 2022-10-30 23:38 | Inpatient (IN) | payer MEDICARE, MEDICAID, SELFPAY ==
--- NOTE | ~2022-10-30 | XR_ITS ---
EXAMINATION: XR CHEST CLINICAL INFORMATION: Cough COMPARISON: Chest radiograph and chest CT 06/19/2021 TECHNIQUE: Frontal view of the chest was obtained. FINDINGS: Heart size is normal with no evidence of CHF. No pleural effusions are seen. Again seen are diffuse changes in the lungs secondary to marked bronchiectasis which has been well demonstrated on prior CT exams. Some slight increased opacity seen in the right mid lung and possibly the right base possibly due to increased fluid/secretions XR/XR chest 1V IMPRESSION: Severe bronchiectasis with some slight increased opacity in the right midlung the right lung base as described above.
[2022-10-30 23:42] VITALS: BP 116/81; PULSE 107; RESP 18; TEMP 36.1; O2SAT 89; BMI 23.6
--- NOTE | 2022-10-30 23:56 | ED_ITS ---
HPI - Psych General Chief Complaint: Psychiatric Symptoms Stated Complaint: SI, bipolar Time Seen by Provider: 10/30/22 23:55 Source: patient and family Mode of arrival: ambulatory Limitations: no limitations History of Present Illness HPI Narrative: 41-year-old male presents for psychiatric evaluation. He presents with his significant other, who states that the patient is suicidal with plan to drink himself to , and has multiple other plans to kill himself. Patient is bipolar, has not been taking his medications, and has been exhibiting manic behavior for the past few months, progressively worsening. Patient did have a visit to this facility in May, and was diagnosed with acute respiratory failure , however he was suicidal at the time. MD complaint: suicidal ideation, feels depressed and alcohol abuse Onset (ago): month(s) Duration: constant and getting worse History of same: Yes Relieving factors: none Context: not taking psychiatric medications Associated psychiatric symptoms: depression and suicidal ideation Associated symptoms: denies other symptoms Treatments prior to arrival: placed on mental health hold If self harm: admits thoughts of self harm, has plan and has acted on plan Related Data Previous Rx's Medication Instructions Recorded omeprazole 20 mg capsule,delayed 20 mg PO DAILY@0630 #30 caps 06/22/21 release Ventolin HFA 90 mcg/actuation 2 puff inhalation Q4H PRN for 02/18/22 aerosol inhaler (albuterol sulfate) wheezing #18 ea dupilumab 300 mg/2 mL subcutaneous See Rx Instructions subcut Q2W 28 03/04/22 pen injector (Dupixent) days #4 mL ipratropium 0.5 mg-albuterol 3 mg 3 ml inhalation TID PRN Shortness 07/04/22 (2.5 mg base)/3 mL nebulization Of Breath 30 days #270 mL soln fluticasone furoate 200 1 ea inhalation DAILY #60 ea 07/31/22 mcg-vilanterol 25 mcg/dose inhalation powder (Breo Ellipta) albuterol sulfate 90 mcg/actuation 2 puff inhalation Q4-6H PRN 10/02/22 aerosol inhaler shortness of breath or wheezing 30 days #1 ea levofloxacin 750 mg tablet 750 mg PO DAILY 7 days #7 tabs 10/02/22 prednisone 10 mg tablet 40 mg PO DAILY 7 days #28 tabs 10/02/22 tobramycin 300 mg/5 mL in 0.225 % 300 mg (5 mL) inhalation Q12H 28 10/04/22 sodium chloride for nebulization days #280 mL Allergies Allergy/AdvReac Type Severity Reaction Status Date / Time clonazepam [CLONAZEPAM] Allergy Severe ERRATIC Verified 10/02/22 14:52 BEHAVIOR, AND RAGE. Review of Systems Review of Systems: Yes Unobtainable due to mental status (Patient not compliant with review of systems) [facility] Past Medical History Attestation statement: The following information was validated with the patient. Source: old records reviewed Medical History Lung disease Pleuritic chest pain Social History Social History Household Members: Unknown / Unable to assess Housing: Unknown / Unable to assess Unable to assess alcohol history related to: Unable to respond Alcohol intake: current Alcohol intake frequency: 3 or more drinks per day Alcohol type: hard liquor Patient Tobacco Use Status: Current everyday Tobacco user Tobacco use type: Cigarette Years Smoked: 19 yrs Smoked in Last 30 Days: Yes Use of substances other than those prescribed or required for medical reasons: Unable to respond Substance Use Type: Unknown Advance Directives: No service: No Current occupational status: unemployed Physical Exam Vital Signs: Vital Signs: Last Vital Signs Temp 97.0 F 10/30/22 23:42 Pulse 94 10/31/22 02:05 Resp 22 H 10/31/22 02:05 BP 97/56 L 10/31/22 02:05 Pulse Ox 92 10/31/22 02:05 O2 Del Method 10/31/22 02:05 O2 Flow Rate 10 10/31/22 02:05 BMI result Body Mass Index 23.6 Appearance: Alert. Intoxicated. Severe motion all distress. Eyes: Pupils equal, round and reactive to light. ENT: Pharynx normal. Neck: Normal inspection. Neck supple. CVS: Normal heart rate and rhythm. Pulses normal. Respiratory: No respiratory distress. Breath sounds normal. Abdomen: Soft and nontender. Skin: Skin warm and dry. Normal skin color. Normal skin turgor. Extremities: No lower extremity edema. Unbalanced gait secondary to intoxication. Neuro: No motor deficit. No sensory deficit. Cranial nerves 2-12 intact Course Course Course Narrative: 41-year-old male with past medical history of acute respiratory failure, aspiration pneumonia, alcohol abuse, severe asthma presents for suicidal ideation and alcohol intoxication. Patient is not forthcoming with information, is belligerent, and threatening staff. Patient ripped off the Badge of the security guards, threatening to cause physical harm to all staff. Patient was placed in 4 point restraints, and given 4 mg of IM Versed and 5 mg of IM Haldol. Patient's significant other is at bedside. She is helpful, and very forthcom ing with information about her concerns regarding his safety. At this time, this AIR CONDITIONING SERVICE TECHNICIAN will section 12 this patient for his safety, as he does blatantly admit to being suicidal. Will obtain labs and COVID. Crisis consult pending. ETOH 315. 00:49 all restraints removed by this AIR CONDITIONING SERVICE TECHNICIAN. Patient's family stated that this patient has significant lung issues, is followed by Dr. Henson of as well as Dr. Sanchez for interstitial lung disease. Patient is a smoker, suspected to have sleep apnea. Chest ray and indicates severe bronchiectasis with some slight increased opacity of the right mid lung and the right lung base. Will start antibiotics, at this time we will hold off on phenobarbital protocol for EtOH withdrawal. Patient hypoxic requiring O2 to keep saturation at 90-92%, patient has severe lung disease with suspected sleep apnea, noncompliance with pulmonary medications, patient's /significant other, states that his melter clerk wants him to be on oxygen however this patient adamantly refuse. Patient is a smoker. 02:00 discussion with hospitalist, patient will be admitted for suspected pneumonia with hypoxia, ETOH withdrawal, and suicidal ideation. Will start antibiotics, at this time we will hold off on phenobarbital protocol for EtOH withdrawal. Consultations Consultation #1: Akhil Time: 02:00 Medications Administered Discontinued Medications Generic Name Dose Route Start Last Admin Trade Name Freq PRN Reason Stop Dose Admin Haloperidol Lactate 5 mg 10/31/22 00:28 10/31/22 00:42 Haloperidol Lactate 5 Mg/Ml Vial IM 10/31/22 00:29 5 mg STAT STA Administration Midazolam HCl 4 mg 10/31/22 00:27 12 00:09 Midazolam Hcl/Pf 2 Mg/2 Ml Vial IM 10/31/22 00:28 4 mg ONCE ONE Administration MDM - Psych Differential Diagnosis Differential diagnosis: Likely acute psychosis, suicidal ideation, bipolar disorder, depression, drug-induced psychotic disorder and alcohol intoxication Medical Records Attestation: I reviewed the patient's medical records. Lab Data Attestation: I reviewed the patient's lab results. Result diagrams: 10/31/22 00:46 10/31/22 00:46 Labs: Lab Results 10/31/22 10/31/22 10/31/22 Range/Units 00:46 00:46 00:52 WBC 15.6 H (4.8-10.8) X10*3/uL RBC 4.88 (4.60-5.80) X10*6/uL Hgb 13.1 L (14.0-18.0) g/dl Hct 41.6 L (42.0-52.0) % MCV 85.2 (80.0-98.0) fL MCH 26.8 L (27.0-33.0) pg MCHC 31.5 (31.0-36.0) g/dl RDW 16.3 H (11.0-16.0) % Plt Count 426 H (160-400) X10*3/uL MPV 9.4 (9.4-12.4) fL Immature Gran % (Auto) 0.5 H (0.0-0.4) % Neut % (Auto) 55.9 (45-73) % Lymph % (Auto) 34.4 (20-40) % [place] % (Auto) 6.3 (2-11) % Eos % (Auto) 2.1 (0-4) % Baso % (Auto) 0.8 (0-2) % Lymph # (Auto) 5.4 H (1.2-4.9) X10*3/uL [place] # (Auto) 1.0 (0.1-1.2) X10*3/uL Eos # (Auto) 0.3 (0.0-0.4) X10*3/uL Baso # (Auto) 0.1 (0.0-0.2) X10*3/uL Abs Immat Gran (auto) 0.08 H (0.00-0.03) X10*3/uL Absolute Neuts (auto) 8.7 H (2.0-8.3) x10*3/uL Absolute Nucleated RBC 0.000 (0.0-0.012) X10*3/uL Nucleated RBC % (auto) 0.0 (0.0-0.2) /100WBC Smear Tech's Comments VERIFIED Sodium 141 (135-145) mmol/L Potassium 4.1 (3.3-5.1) mmol/L Chloride 101 (96-108) mmol/L Carbon Dioxide 29 (22-29) mmol/L Anion Gap 15 (12-20) BUN 13 (9-16) mg/dL Creatinine 0.95 (0.5-1.4) mg/dL Estim Creat Clear Calc 102.3 Estimated GFR > 60 Random Glucose 91 (60-115) mg/dL Calcium 9.7 D (8.4-10.2) mg/dL Total Bilirubin 0.2 (0.0-1.0) mg/dL AST 20 (5-37) U/L ALT 14 (0-40) U/L Alkaline Phosphatase 80 (39-117) U/L Total Protein 7.7 (6.5-8.0) g/dL Albumin 3.7 (3.5-5.0) g/dL Ethyl Alcohol 315 H* mg/dL Influenza Type A (PCR) NEGATIVE (Negative) Influenza Type B (PCR) NEGATIVE (Negative) RSV RNA Qual (PCR) NEGATIVE (Negative) SARS-CoV-2 RNA (RT-PCR) NEGATIVE (Negative) Imaging Data Chest x-ray: Attestation: I personally reviewed and interpreted this imaging study as follows: Radiologist's impression: EXAMINATION: XR CHEST CLINICAL INFORMATION: Cough COMPARISON: Chest radiograph and chest CT 06/19/2021 TECHNIQUE: Frontal view of the chest was obtained. FINDINGS: Heart size is normal with no evidence of CHF. No pleural effusions are seen. Again seen are diffuse changes in the lungs secondary to marked bronchiectasis which has been well demonstrated on prior CT exams. Some slight increased opacity seen in the right mid lung and possibly the right base possibly due to increased fluid/secretions XR/XR chest 1V IMPRESSION: Severe bronchiectasis with some slight increased opacity in the right midlung the right lung base as described above. Critical Care Time Critical Care Time Critical Care Time: Yes Total Critical Care Time: 35 Attestation: I have personally provided critical care time exclusive of time spent on separately billable procedures. Time includes review of laboratory data, radiology results, discussion with consultants, and monitoring for potential decompensation. Interventions were performed as documented. Discharge Plan Discharge Patient Disposition: Admitted As Inpatient Prescriptions: No Action albuterol sulfate [Ventolin HFA] 90 mcg/actuation HFA aerosol inhaler 2 puff inhalation Q4H PRN (Reason: for wheezing) Qty: 18 6RF ipratropium-albuterol 0.5 mg-3 mg(2.5 mg base)/3 mL solution for nebulization 3 ml inhalation TID PRN (Reason: Shortness Of Breath) 30 Days Qty: 270 6RF Breo Ellipta 200-25 mcg/dose blister with device 1 ea inhalation DAILY Qty: 60 6RF tobramycin in 0.225 % NaCl 300 mg/5 mL solution for nebulization 300 mg inhalation Q12H 28 Days Qty: 280 6RF Rx Instructions: 28 days on, 28 days off omeprazole 20 mg Capsule,Delayed Release(Dr/Ec) 20 mg PO DAILY@0630 Qty: 30 0RF Dupixent Pen 300 mg/2 mL pen injector See Rx Instructions subcut Q2W 28 Days Qty: 4 12RF Rx Instructions: Initial dose 600 mg, then 200 mg every 2 weeks subcut levofloxacin 750 mg tablet 750 mg PO DAILY 7 Days Qty: 7 0RF prednisone 10 mg tablet 40 mg PO DAILY 7 Days Qty: 28 0RF albuterol sulfate 90 mcg/actuation HFA aerosol inhaler 2 puff inhalation Q4-6H PRN (Reason: shortness of breath or wheezing) 30 Days Qty: 1 6RF Interventions: [place]-Suicide Risk Severity Scale Last Done: 10/30/22 23:48
[2022-10-31] VITALS (17 sets, daily range): BP systolic 92–111; BP diastolic 52–70; PULSE 78–115; RESP 16–29; TEMP 36.2–36.7; O2SAT 92–100
--- NOTE | 2022-10-31 00:05 | PC.NURSE ---
Pt brought back to Emergency Department room 21. HOT BOX SPOTTER Kenia Crain RN and LISA Tomlin at bedside. Pt is agitated, threatening to leave. Pt spouse at bedside.
[2022-10-31] MEDS: Midazolam HCl/PF 2 MG/2 ML VIAL 4 MG IM (00:09)
--- NOTE | 2022-10-31 00:09 | PC.NURSE ---
Addendum entered by Suzanne Morris 10/31/22 03:28: Restraint form has been complete, placed in pt folder Original Note: Pt escalating, this RN called security. Security at bedside. Pt threatening staff, walking up to security. EDMOND Crain requesting educating pt on need for medical attention. Pt agitated with security presence, he then grabbed one security officers badge. Subsequently, security and staff placed pt in four point restraint. EDMOND Crain verbally ordered the following for medical restraint: Versed 4mg IM and Haldol 5mg IM. Medications were administered while pt was being placed in four point restraints. Pt secured in restraints. This RN and EDMOND Crain checked for pulses in restraint locations.
--- NOTE | 2022-10-31 00:25 | PC.NURSE ---
Unable to shredding machine knife changer Pt or get vitals pt agitated and restrained RN aware
[2022-10-31] MEDS: Haloperidol Lactate 5 MG/ML VIAL IM (00:42)
--- NOTE | 2022-10-31 00:49 | PC.NURSE ---
Pt has been removed from four point restraints. Blood draw complete by EDMOND Crain and covid swab has also been completed.
[2022-10-31 00:50] LABS: Basophils Absolute Auto 0.1 X10*3/uL (0.0-0.2); Basophils Percent Auto 0.8 % (0-2); Eosinophils Absolute Auto 0.3 X10*3/uL (0.0-0.4); Eosinophils Percent Auto 2.1 % (0-4); Hematocrit 41.6 % (42.0-52.0); Hemoglobin 13.1 g/dl (14.0-18.0); Imm Gran Abs Auto 0.08 X10*3/uL (0.00-0.03); Imm Gran Pct Auto 0.5 % (0.0-0.4); Lymphocytes Absolute Auto 5.4 X10*3/uL (1.2-4.9); Lymphocytes Percent Auto 34.4 % (20-40); MANUAL DIFF FLAG SCAN; Mean Corpuscular HGB Conc 31.5 g/dl (31.0-36.0); Mean Corpuscular Hemoglobin 26.8 pg (27.0-33.0); Mean Corpuscular Volume 85.2 fL (80.0-98.0); Mean Platelet Volume 9.4 fL (9.4-12.4); Monocytes Percent Auto 6.3 % (2-11); Neutrophils Absolute Auto 8.7 x10*3/uL (2.0-8.3); Neutrophils Percent Auto 55.9 % (45-73); Platelet Count 426 X10*3/uL (160-400); Red Blood Count 4.88 X10*6/uL (4.60-5.80); Red Cell Distribution Width 16.3 % (11.0-16.0); SCAN SMEAR FLAG 1; White Blood Count 15.6 X10*3/uL (4.8-10.8)
[2022-10-31 01:07] LABS: SLIDE REVIEW VERIFIED
[2022-10-31 01:17] LABS: Alanine Aminotransferase 14 U/L (0-40); Albumin Level 3.7 g/dL (3.5-5.0); Alkaline Phosphatase 80 U/L (39-117); Anion Gap 15 (12-20); Aspartate Amino Transferase 20 U/L (5-37); Bilirubin Total 0.2 mg/dL (0.0-1.0); Blood Urea Nitrogen 13 mg/dL (9-16); Calcium 9.7 mg/dL (8.4-10.2); Carbon Dioxide 29 mmol/L (22-29); Chloride 101 mmol/L (96-108); Creatinine Clr Calc Pharmacy 102.3; Estimated Glomerular Filt Rate > 60; Ethanol 315 mg/dL; Glucose Random 91 mg/dL (60-115); Potassium 4.1 mmol/L (3.3-5.1); Sodium 141 mmol/L (135-145); Total Protein 7.7 g/dL (6.5-8.0)
[2022-10-31 01:32] LABS: Influenza A PCR NEGATIVE (Negative); Influenza B PCR NEGATIVE (Negative); Resp Syncy Virus RNA Qual PCR NEGATIVE (Negative); SARS COV2 PCR INHOUSE NEGATIVE (Negative)
--- NOTE | 2022-10-31 01:55 | PC.NURSE ---
This RN able to get pt blood pressure cuff on as well as pulse oximeter. Pt was found to have an o2 sat of 77%. This RN alerted EDMOND Crain, who then requested pt to be put on a nasal cannula. Pt O2 slightly improved with 6L nasal cannula up to 84%. This RN then placed pt on Oxymask at 10L. Pt O2 now 93%, EDMOND Crain aware.
[2022-10-31] MEDS: cefTRIAXone sodium 1 GM in 0.9 % Sodium Chloride 50 ML IV (03:09)
--- NOTE | 2022-10-31 03:19 | PC.NURSE ---
Pt continues to rest on stretcher. Respirations are even and unlabored. Pt remains on oxymask at this time 10L now satting at 96%. This RN placed 20g IV in RAC, and began Iv abx
--- NOTE | 2022-10-31 03:30 | PC.NURSE ---
assumed care of this patient. patient is lethargic, responds to voice and touch. NSR on the monitor. requiring 10L oxymask for oxygen. will continue to monitor resp status...
[2022-10-31] MEDS: Azithromycin 500 MG in 0.9 % Sodium Chloride 250 ML 125 MG IV (04:02)
--- NOTE | 2022-10-31 05:16 | PC.NURSE ---
Pt changed over in hospital gown. Pt personal belongings placed in belongings bag at bedside. Pt given bed sheet and call jaeger placed in reach
--- NOTE | 2022-10-31 06:29 | PM.IMHP ---
History of Present Illness Date of Service: 10/31/22 Chief Complaint: suicidal thoughts 41-year-old male with past medical history of alcohol abuse with history of alcohol withdrawal seizures, underlying bronchiectasis with severe persistent allergic asthma, history of bipolar disorder, presents to the hospital with suicidal ideation. Patient currently is obtunded, unable to get much history from him. According to ED PA as well as nose from triage patient presented to the hospital with complaints of suicidal ideation, patient reported that he has been drinking alcohol and not taking any of his medications. Per ED provider patient was very aggressive 2 words ED staff, patient received 5 mg of Haldol as well as 4 mg of Versed, therefore patient currently attending and unable to give much history. On arrival to the ED patient noted to be hypoxic satting 89% on room air. Patient placed on OxyMask currently satting 96%. His otherwise holes were significant for heart rate of 107, respiratory rate currently 18 increased to the mid 20s Labs are found to be WBC count of 15.6, hemoglobin of 13.1, hematocrit of 41.6, alcohol level 315, COVID influenza and RSV negative Chest x-ray showed severe bronchiectasis with some slight increased opacity in the right mid lung and right lung base Patient started on IV antibiotics and will be admitted for further management Unable to review past medical history with patient Review of Systems Review of Systems: Yes Unobtainable due to mental status COUNTS INCLUDE 234 BEDS AT THE [facility] Medical History (Updated 10/31/22 @ 06:36 by Cyndie Landaverde MD) Alcohol abuse with withdrawal Alcohol use disorder Alcohol withdrawal seizure Bronchiectasis Elevated IgE level Lung disease Pleuritic chest pain Severe persistent allergic asthma Social History Household Members: Unknown / Unable to assess Housing: Unknown / Unable to assess Unable to assess alcohol history related to: Unable to respond Alcohol intake: current Alcohol intake frequency: 3 or more drinks per day Alcohol type: hard liquor Patient Tobacco Use Status: Current everyday Tobacco user Tobacco use type: Cigarette Years Smoked: 19 yrs Smoked in Last 30 Days: Yes Use of substances other than those prescribed or required for medical reasons: Unable to respond Substance Use Type: Unknown Advance Directives: No service: No Current occupational status: unemployed Meds Allergies Allergy/AdvReac Type Severity Reaction Status Date / Time clonazepam [CLONAZEPAM] Allergy Severe ERRATIC Verified 10/02/22 14:52 BEHAVIOR, AND RAGE. Active Medications: Current Medications Acetaminophen (Acetaminophen 325 Mg Tablet) 650 mg PO Q6H PRN PRN Reason: Pain, Mild (Pain Scale 1-3) Docusate Sodium (Docusate Sodium 100 Mg Capsule) 100 mg PO DAILY PRN PRN Reason: Constipation Heparin Sodium (Porcine) (Heparin Sodium,Porcine 5,000 Unit/Ml Vial) 5,000 unit SUBCUT Q12H MANDY Ceftriaxone Sodium 1 gm/ (Sodium Chloride) 50 mls @ 100 mls/hr IV Q24H MANDY Azithromycin 500 mg/ Sodium (Chloride) 250 mls @ 125 mls/hr IV Q24H MANDY Ondansetron HCl (Ondansetron Hcl 4 Mg/2 Ml Vial) 4 mg IVPUSH Q8H PRN PRN Reason: Nausea and Vomiting Sodium Chloride (0.9 % Sodium Chloride Flush 3 Ml Syringe) 3 ml IVFLUSH QSHIFT MANDY Physical Exam Vital Signs and Narrative: Vital Signs: Last Vital Signs Temp 97.3 F 10/31/22 05:12 Pulse 86 10/31/22 06:09 Resp 21 H 10/31/22 06:09 BP 92/53 L 10/31/22 06:09 Pulse Ox 96 10/31/22 06:09 O2 Del Method 10/31/22 06:09 O2 Flow Rate 10 10/31/22 06:09 BMI result Body Mass Index 23.6 Const: Other: Patient of tended, unable to cooperate with exam Eyes: General: appearance normal, both eyes and all related structures Resp: Effort & Inspection: normal respiratory effort Cardio: Rate: regular rate Rhythm: regular rhythm GI: Palpation (GI): Soft to palpation Auscultation: normal bowel sounds Skin: General skin exam: no rashes or lesions noted Extrem: General: Yes normal to inspection and Yes no pedal edema Results Labs CBC and Chem 7: 10/31/22 00:46 10/31/22 00:46 Labs: Laboratory Results - last 24 hr 10/31/22 10/31/22 10/31/22 00:46 00:46 00:52 MCV 85.2 MCH 26.8 L MCHC 31.5 RDW 16.3 H Plt Count 426 H MPV 9.4 Immature Gran % (Auto) 0.5 H Neut % (Auto) 55.9 Lymph % (Auto) 34.4 [place] % (Auto) 6.3 Eos % (Auto) 2.1 Baso % (Auto) 0.8 Lymph # (Auto) 5.4 H [place] # (Auto) 1.0 Eos # (Auto) 0.3 Baso # (Auto) 0.1 Abs Immat Gran (auto) 0.08 H Absolute Neuts (auto) 8.7 H Absolute Nucleated RBC 0.000 Nucleated RBC % (auto) 0.0 Smear Tech's Comments VERIFIED Anion Gap 15 Estim Creat Clear Calc 102.3 Estimated GFR > 60 Random Glucose 91 Calcium 9.7 D Total Bilirubin 0.2 AST 20 ALT 14 Alkaline Phosphatase 80 Total Protein 7.7 Albumin 3.7 Ethyl Alcohol 315 H* Influenza Type A (PCR) NEGATIVE Influenza Type B (PCR) NEGATIVE RSV RNA Qual (PCR) NEGATIVE SARS-CoV-2 RNA (RT-PCR) NEGATIVE Imaging Radiologist's Impressions: Impressions Chest X-Ray 10/31/22 00:53 IMPRESSION: Severe bronchiectasis with some slight increased opacity in the right midlung the right lung base as described above. Assessment and Plan (1) Acute respiratory failure with hypoxia: Status: Acute (2) Pneumonia: Qualifiers: Pneumonia type: due to unspecified organism Laterality: right Lung location: middle lobe of lung Qualified Code(s): J18.9 - Pneumonia, unspecified organism Status: Acute (3) Bipolar disorder: Qualifiers: Active/Remission status: currently active Current bipolar episode type: manic Current episode severity: unspecified Qualified Code(s): F31.10 - Bipolar disorder, current episode manic without psychotic features, unspecified Status: Acute (4) History of alcohol abuse: Status: Acute Plan this is a 41-year-old male with past medical history of bronchiectasis associated with Pseudomonas, 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 Found to be hypoxic # acute hypoxic respiratory failure - likely secondary to pneumonia worsened by underlying lung disease - hypoxic to the mid 80s - continue oxygen supplement as required - will treat with IV antibiotics - monitor respiratory status - COVID, influenza and RSV negative # community-acquired pneumonia - evidence of pneumonia on chest x-ray, with hypoxia - febrile, slight tachycardia and tachypnea - will treat with IV antibiotics - follow cultures # mood disorder/suicidal ideation - unclear patient has underlying bipolar disorder, - unable to obtain any psychiatry records in the EMR - according to ED provided patient in manic episode - received Haldol and Versed - patient also suicidal - psychiatry consulted - sitter at bedside # history of alcohol abuse - positive alcohol level - has history of alcohol abuse with alcohol withdrawal seizures - at this time patient of tended - will likely need phenobarb but given his current mental state after receiving 4 mg of Versed, will hold off on starting phenobarb - will place on CIWA DVT prophylaxis: Lovenox Given patient's hypoxia, pneumonia needing IV antibiotics patient require minimum [facility] inpatient hospital stay further management and monitoring Quality Stroke Does the patient have a stroke diagnosis?: No VTE Prior VTE?: No VTE Risk Level:: Medical - moderate - high VTE Device Contraindication: Treatment Not Indicated VTE Drug Contraindication: N/A - Med Ordered
--- NOTE | 2022-10-31 06:33 | MHC.CARE ---
CARE Team is available to assess when pt is medically cleared for discharge home.
[2022-10-31 06:34] LABS: MANUAL DIFF FLAG NO
[2022-10-31 06:36] LABS: Basophils Absolute Auto 0.1 X10*3/uL (0.0-0.2); Basophils Percent Auto 0.9 % (0-2); Eosinophils Absolute Auto 0.3 X10*3/uL (0.0-0.4); Eosinophils Percent Auto 2.8 % (0-4); Hematocrit 40.4 % (42.0-52.0); Hemoglobin 12.5 g/dl (14.0-18.0); Imm Gran Abs Auto 0.11 X10*3/uL (0.00-0.03); Imm Gran Pct Auto 0.9 % (0.0-0.4); Lymphocytes Absolute Auto 3.6 X10*3/uL (1.2-4.9); Lymphocytes Percent Auto 29.8 % (20-40); Mean Corpuscular HGB Conc 30.9 g/dl (31.0-36.0); Mean Corpuscular Volume 87.3 fL (80.0-98.0); Mean Platelet Volume 9.9 fL (9.4-12.4); Monocytes Absolute Auto 0.9 X10*3/uL (0.1-1.2); Monocytes Percent Auto 7.1 % (2-11); Neutrophils Absolute Auto 7.1 x10*3/uL (2.0-8.3); Neutrophils Percent Auto 58.5 % (45-73); Platelet Count 399 X10*3/uL (160-400); Red Blood Count 4.63 X10*6/uL (4.60-5.80); Red Cell Distribution Width 16.5 % (11.0-16.0); White Blood Count 12.2 X10*3/uL (4.8-10.8)
[2022-10-31 06:48] LABS: Anion Gap 13 (12-20); Blood Urea Nitrogen 13 mg/dL (9-16); Calcium 9.1 mg/dL (8.4-10.2); Carbon Dioxide 29 mmol/L (22-29); Chloride 103 mmol/L (96-108); Creatinine Clr Calc Pharmacy 109.2; Estimated Glomerular Filt Rate > 60; Glucose Random 78 mg/dL (60-115); Potassium 4.3 mmol/L (3.3-5.1); Sodium 141 mmol/L (135-145)
[2022-10-31 08:31] LABS: Lactic Acid 1.9 mmol/L (0.5-2.0)
--- NOTE | 2022-10-31 08:40 | PHA.MEDREC ---
Pharmacy Consult ? Medication Reconciliation Pharmacy has completed the medication reconciliation. Patient states they are supposed to be on Magdiel nebules but is waiting for a new machine. Patient can't remember the last time they took the med Deniz
--- NOTE | 2022-10-31 09:40 | PC.NURSE ---
Dr. Esvin gonzalez of patients HR
[2022-10-31] MEDS: Heparin Sodium,Porcine 5,000 UNIT/ML VIAL 5000 UNIT SUBCUT ×2 (09:42→21:34)
[2022-10-31] MEDS: 0.9 % Sodium Chloride Flush 3 ML SYRINGE IVFLUSH ×2 (09:43→16:01)
--- NOTE | 2022-10-31 13:41 | PC.NURSE ---
Patient asking for anxiety medications. Dr. Mcallister made aware.
--- NOTE | 2022-10-31 13:50 | PC.NURSE ---
Dr. Castro notified about CIWA score
--- NOTE | 2022-10-31 14:24 | MHC.CM.PN ---
This science writer meet with patient fro CM assessment. Patient alert and oriented and able to participate. Before hospitalization patient living with his girlfriend but does not know if he is able to return there. No services in the home. NOT vaccinated for COVID. Reports having HCP from a [place] [facility] [place] [facility] if he is unable to return to girlfriends house- patient is undecided at this time. Awaiting psychiatry consult and medical clearance for CARE Team. Patient would need transportation when cleared for D/C.
[2022-10-31] MEDS: Calcium Carbonate 750 MG TAB.CHEW PO (21:28)
[2022-10-31] MEDS: PHENobarbitaL sodium 130 MG/ML IM ONCE 283 MG IM (21:29)
[2022-10-31] MEDS: Nicotine Polacrilex 2 MG GUM 4 MG BUCCAL (21:29)
[2022-11-01] MEDS: PHENobarbitaL sodium 130 MG/ML VIAL IM Q3Hx2 212 MG IM ×2 (00:54→03:30)
[2022-11-01] MEDS: 0.9 % Sodium Chloride Flush 3 ML SYRINGE IVFLUSH ×3 (00:57→20:42)
[2022-11-01] MEDS: cefTRIAXone sodium 1 GM in 0.9 % Sodium Chloride 50 ML IV (03:35)
[2022-11-01 04:00] VITALS: BP 108/58; PULSE 84; RESP 16; TEMP 36.9; O2SAT 89
[2022-11-01] MEDS: Azithromycin 500 MG in 0.9 % Sodium Chloride 250 ML 125 MG IV (04:12)
[2022-11-01 07:50] VITALS: BP 131/60; PULSE 104; RESP 20; TEMP 36.8; O2SAT 94
[2022-11-01] MEDS: PHENobarbitaL 15 MG TABLET PO (08:46)
[2022-11-01] MEDS: Heparin Sodium,Porcine 5,000 UNIT/ML VIAL 5000 UNIT SUBCUT ×2 (08:47→20:32)
[2022-11-01] MEDS: Nicotine Polacrilex 2 MG GUM 4 MG BUCCAL ×5 (08:47→20:33)
[2022-11-01] MEDS: PHENobarbitaL 15 MG TABLET 45 MG PO ×2 (08:48→20:32)
--- NOTE | 2022-11-01 09:08 | HO.PM.IMPN ---
Subjective Subjective Date of Service: 11/01/22 Interval History: Seen in f/u for PNA, SI interval history: Still signficantly hypoxic, no SI Review of Systems No cough sob Physical Exam Vital Signs: Vital Signs: Last Vital Signs Temp 98.3 F 11/01/22 07:50 Pulse 104 H 11/01/22 07:50 Resp 20 11/01/22 07:50 BP 131/60 11/01/22 07:50 Pulse Ox 94 11/01/22 07:50 O2 Del Method 11/01/22 07:50 O2 Flow Rate 10 11/01/22 07:50 BMI result Body Mass Index 23.6 Const: Other: General: AO X 3, no acute distress Resp: rhonchi CVS: S1,S2,RRR GI: +BS, NT, no distention Skin: No rash Neuro: motor grossly intact Psych: appropriate affect, denies si Objective Data Active Medications Acetaminophen (Acetaminophen 325 Mg Tablet) 650 mg PO Q6H PRN PRN Reason: Pain, Mild (Pain Scale 1-3) Calcium Carbonate (Calcium Carbonate 750 Mg Tab.Chew) 750 mg PO Q6H PRN PRN Reason: heartburn Last Admin: 10/31/22 21:28 Dose: 750 mg Documented By: MATEUS Docusate Sodium (Docusate Sodium 100 Mg Capsule) 100 mg PO DAILY PRN PRN Reason: Constipation Heparin Sodium (Porcine) (Heparin Sodium,Porcine 5,000 Unit/Ml Vial) 5,000 unit SUBCUT Q12H [facility] Last Admin: 11/01/22 08:47 Dose: 5,000 unit Documented By: VIYK Ceftriaxone Sodium 1 gm/ (Sodium Chloride) 50 mls @ 100 mls/hr IV Q24H [facility] Last Infusion: 11/01/22 04:15 Dose: 0 mls/hr Documented By: MATEUS Azithromycin 500 mg/ Sodium (Chloride) 250 mls @ 125 mls/hr IV Q24H [facility] Last Infusion: 11/01/22 06:12 Dose: 0 mls/hr Documented By: MATEUS Nicotine Polacrilex (Nicotine Polacrilex 2 Mg Gum) 4 mg BUCCAL Q1H PRN PRN Reason: Nicotine Cravings Last Admin: 11/01/22 08:47 Dose: 4 mg Documented By: VIKY Ondansetron HCl (Ondansetron Hcl 4 Mg/2 Ml Vial) 4 mg IVPUSH Q8H PRN PRN Reason: Nausea and Vomiting Pharmacy Consult (Consult Rx Etoh Phenob Im/Po) 1 each MISCELLANE ONCE PRN; Protocol PRN Reason: Consult order Phenobarbital (Phenobarbital 15 Mg Tablet) 15 mg PO BID [facility] Stop: 11/04/22 21:01 Last Admin: 11/01/22 08:46 Dose: 15 mg Documented By: VIKY Phenobarbital (Phenobarbital 15 Mg Tablet) 15 mg PO DAILY [facility] Stop: 11/06/22 09:01 Phenobarbital (Phenobarbital 15 Mg Tablet) 45 mg PO BID [facility] Stop: 11/02/22 21:01 Last Admin: 11/01/22 08:48 Dose: 45 mg Documented By: VIKY Sodium Chloride (0.9 % Sodium Chloride Flush 3 Ml Syringe) 3 ml IVFLUSH QSHIFT [facility] Last Admin: 11/01/22 08:50 Dose: 3 ml Documented By: VIKY Labs CBC & Chem 7: 10/31/22 05:58 10/31/22 05:58 Microbiology Microbiology Results: Microbiology 10/31/22 03:00 Blood Culture - Preliminary Blood - Venous No growth after 24 hours. 10/31/22 03:00 Blood Culture - Preliminary Blood - Venous No growth after 24 hours. 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 Found to be hypoxic # acute hypoxic respiratory failure - likely secondary to pneumonia worsened by underlying lung disease - Still signficantly hypoxic and drop into 80 off O2s - continue oxygen supplement as required - COVID, influenza and RSV negative # community-acquired pneumonia -Continue Ceftriaxone and Azithro D2 # mood disorder/suicidal ideation--NO SI right now - unclear patient has underlying bipolar disorder, - unable to obtain any psychiatry records in the EMR - according to ED provided patient in manic episode - patient also suicidal - psychiatry consulted - sitter at bedside # history of alcohol abuse - positive alcohol level - has history of alcohol abuse with alcohol withdrawal seizures -continue CIWA, no signs of withdrawal at this time. DVT prophylaxis: Lovenox Given patient's hypoxia, pneumonia needing IV antibiotics patient require minimum tonight inpatient hospital stay further management and monitoring Quality Stroke Does the patient have a stroke diagnosis?: No VTE Prior VTE?: No VTE Risk Level:: Medical - moderate - high VTE Device Contraindication: Treatment Not Indicated VTE Drug Contraindication: N/A - Med Ordered
[2022-11-01 15:19] VITALS: BP 163/72; PULSE 111; RESP 17; TEMP 37.1; O2SAT 97
--- NOTE | 2022-11-01 15:44 | MHC.CM.PN ---
PATIENT STATES THAT HIS GF WILL NOT ALLOW HIM TO RETURN TO THE HOME. PATIENT IS INTERESTED IN OPTIONS FOR REHAB. HE WILL BE SEEN BY RECOVERY TEAM, AND [facility] PRIOR TO DISCHARGE.
[2022-11-01 19:01] VITALS: BP 127/59; PULSE 121; RESP 17; TEMP 36.6; O2SAT 96
[2022-11-01] MEDS: Calcium Carbonate 750 MG TAB.CHEW PO (21:48)
[2022-11-02 02:59] VITALS: BP 111/55; PULSE 76; RESP 17; TEMP 36.3; O2SAT 99
[2022-11-02] MEDS: cefTRIAXone sodium 1 GM in 0.9 % Sodium Chloride 50 ML IV (04:14)
[2022-11-02] MEDS: Azithromycin 500 MG in 0.9 % Sodium Chloride 250 ML 125 MG IV (04:15)
[2022-11-02] MEDS: Nicotine Polacrilex 2 MG GUM 4 MG BUCCAL ×2 (04:17→09:02)
[2022-11-02 07:51] VITALS: BP 106/65; PULSE 76; RESP 18; TEMP 36.6; O2SAT 97
[2022-11-02 08:45] VITALS: BP 119/76; PULSE 84
[2022-11-02] MEDS: Heparin Sodium,Porcine 5,000 UNIT/ML VIAL 5000 UNIT SUBCUT (08:55)
[2022-11-02] MEDS: PHENobarbitaL 15 MG TABLET 45 MG PO (08:56)
[2022-11-02] MEDS: 0.9 % Sodium Chloride Flush 3 ML SYRINGE IVFLUSH (08:57)
--- NOTE | 2022-11-02 09:54 | PM.DS ---
DS: Providers Provider Date of Service: 11/02/22 Date of admission: 10/31/22 04:27 Primary care physician: Unknown Physician Consults: 10/31/22 00:20 Consult to Crisis Stat Reason for consultation: si with plan 10/31/22 00:32 Consult to Psychiatry Stat Consulting Provider: Zenon Kerr Reason for consultation: Behavioral issue requiring restraints 11/02/22 08:54 Consult to Care Team Routine Comment: Reason for consultation: SI, medically ready for discharge DS: Diagnosis Discharge Diagnosis (1) Acute respiratory failure with hypoxia: Status: Acute (2) History of alcohol abuse: Status: Acute (3) Pneumonia: Status: Acute DS: Summary Hospital Course Hospital Course: Chief Complaint: suicidal thoughts 41-year-old male with past medical history of alcohol abuse with history of alcohol withdrawal seizures, underlying bronchiectasis with severe persistent allergic asthma, history of bipolar disorder, presents to the hospital with suicidal ideation.? Patient currently is obtunded, unable to get much history from him.? According to ED PA as well as nose from triage patient presented to the hospital with complaints of suicidal ideation, patient reported that he has been drinking alcohol and not taking any of his medications.? Per ED provider patient was very aggressive 2 words ED staff, patient received 5 mg of Haldol as well as 4 mg of Versed, therefore patient currently attending and unable to give much history. On arrival to the ED patient noted to be hypoxic satting 89% on room air.? Patient placed on OxyMask currently satting 96%.? His otherwise holes were significant for heart rate of 107, respiratory rate currently 18 increased to the mid 20s Labs are found to be WBC count of 15.6, hemoglobin of 13.1, hematocrit of 41.6, alcohol level 315, COVID influenza and RSV negative Chest x-ray showed severe bronchiectasis with some slight increased opacity in the right mid lung and right lung base Patient started on IV antibiotics and will be admitted for further management Unable to review past medical history with patient Hospital course: # acute hypoxic respiratory failure due to pneumonia oxygen was in the 80s initially and was put on oxygen and this has improved and is now off oxygen with oxygen saturation is around 95% on room air. # community-acquired pneumonia--Treated with Azithro and Cefftriaxone for 2 days and will transitio to oral Levaquin for 5 days. # mood disorder/suicidal ideation--Had a 1:1 observation and over the course of hospitalization is now saying he was only saying that when he was drunk and now denies SI # history of alcohol abuse--was put on CIWA and has not exhibited sings of withdrawal and once again councelled against drinking alcohol and to seek help Time Spent with Patient Time attestation: Total time spent providing and/or coordinating discharge services: Discharge coordination time: Greater than 30 minutes Quality: Safe Use of Opioids Does Pt have an Active Cancer Diagnosis on the Problem List?: No Quality: Stroke Does the patient have a stroke diagnosis?: No Physical Exam Vital Signs: Vital Signs: Last Vital Signs Temp 97.9 F 11/02/22 07:51 Pulse 84 11/02/22 08:45 Resp 18 11/02/22 07:51 BP 119/76 11/02/22 08:45 Pulse Ox 97 11/02/22 07:51 O2 Del Method 11/02/22 07:51 O2 Flow Rate 4.0 11/02/22 07:51 BMI result Body Mass Index 23.6 DS: Data Data Completed and Pending Completed studies during hospitalization [Text1]: Procedures Detoxification Services for Substance Abuse Treatment (06/12/21) Insertion of Endotracheal Airway into Trachea, Via Natural or Artificial Opening (06/12/21) Respiratory Ventilation, 24-96 Consecutive Hours (06/12/21) Labs on day of discharge: Preliminary micro results at discharge 10/31/22 03:00 Blood Culture - Preliminary Blood - Venous No growth after 48 hours. 10/31/22 03:00 Blood Culture - Preliminary Blood - Venous No growth after 48 hours. Discharge Plan Discharge Anticipated Discharge Date/Time: 11/02/22 10:00 Patient Disposition: Home, Self-Care Discharge Diagnosis: Pneumonia, Hypoxia, alcohol use desorder Referrals: [phone] [Other] - 1 Week [facility] ([facility]) [Other] - 1 Week (Please follow up on Friday on referral ) CARE Team [Other] - 1 Week (For additional support with outpatient recommendation, please contact the CARE Team [phone], opt 1 This is not a 24 hour hotline and does not provide crisis support. In this event, please call N crisis. ) [facility] [[email or web address] [Other] - 1 Week Physician,Elizabeth J [Primary Care Provider] - 1 Week Discharge Medications: New levofloxacin 750 mg Tablet 750 mg PO Q24H Qty: 4 0RF Continued Breo Ellipta 200-25 mcg/dose blister with device 1 ea inhalation DAILY Qty: 60 6RF tobramycin in 0.225 % NaCl 300 mg/5 mL solution for nebulization 300 mg inhalation Q12H 28 Days Qty: 280 6RF Rx Instructions: 28 days on, 28 days off Dupixent Pen 300 mg/2 mL pen injector See Rx Instructions subcut Q2W 28 Days Qty: 4 12RF Rx Instructions: Initial dose 600 mg, then 200 mg every 2 weeks subcut albuterol sulfate 90 mcg/actuation HFA aerosol inhaler 2 puff inhalation Q4-6H PRN (Reason: shortness of breath or wheezing) 30 Days Qty: 1 6RF Discharge Orders: Discharge Order (Routine); Ordered 11/02/22 Ordered By: Kee Mcallister Diet: Advance to usual diet Activity on Discharge: As tolerated Stand Alone Forms: Patient Portal Discharge page Care Plan Goals: Full recovery from pneumonia Health Concerns: pneumonia, hypoxia, mood desorder Plan of Treatment: Take Levaquin 750 mg daily for 4 more days, next dose tomorrow 11/03 Follow up with your Doctor in a week, call for appointment Assessment: as above
[2022-11-02] MEDS: levoFLOXacin 750 MG TABLET PO (10:35)
--- NOTE | 2022-11-02 12:26 | MHC.CM.PN ---
PT MEDICALLY CLEARED FOR DC AND SUBSEQUENTLY CLEARED BY THE CARE TEAM HE WILL DC HOME TODAY WITH NO SERVICES PT TO ARRANGE TRANSPORT
--- NOTE | 2022-11-04 09:46 | MHC.CARE ---
CARE Team completed follow up call
== END 2022-11-02 12:09 | disposition home or self-care (01) | DRG 193 ==
LOC: HO.ED 10-31 02:30 → HO.EDOVER 10-31 04:34 → HO.IMC 10-31 18:00 → HO.S3 11-01 21:25
PROVIDERS: Admitting Provider Internal Medicine; Emergency Provider Nurse Practitioner Family; PCP Internal Medicine; Visit Provider Internal Medicine
DX: J18.9 Pneumonia, unspecified organism (principal); J96.01 Acute respiratory failure with hypoxia; J47.0 Bronchiectasis with acute lower respiratory infection; R45.851 Suicidal ideations; F39 Unspecified mood [affective] disorder; F10.129 Alcohol abuse with intoxication, unspecified; Y90.8 Blood alcohol level of 240 mg/100 ml or more; J45.50 Severe persistent asthma, uncomplicated; F31.9 Bipolar disorder, unspecified; Z20.822 Contact with and (suspected) exposure to COVID-19; Z88.8 Allergy status to other drugs, medicaments and biological substances; Z79.51 Long term (current) use of inhaled steroids; Z79.899 Other long term (current) drug therapy
CPT/HCPCS: 0241U; 36415; 71045; 80048; 80053; 82077; 83605; 85025; 87040; 99285; J0456; J0696; J2250; J2560